=== PATIENT | male | born 1940 | race Caucasian/White ===

== ENCOUNTER 2016-08-15 05:47 | Day surgery (SDC) | payer MEDICARE, OTHER ==
[2016-08-11 10:04] VITALS: BMI 40.7
[2016-08-15] MEDS ORDERED: LACTATED RINGERS 1,000 ML IV SCH (05:54)
[2016-08-15] MEDS ORDERED: SODIUM CHLORIDE 0.9% 1,000 ML IV SCH (06:00)
[2016-08-15 06:29] LABS: Glucose,Whole Blood 115 mg/dL (75-99)
[2016-08-15 06:36] VITALS: TEMP 97
[2016-08-15 06:55] LABS: Basophils % (A) 0 %; CH 30.2; CHCM 33.5; Eosinophils # (A) 0.3 k/uL (0-0.7); Eosinophils % (A) 3 %; HDW 2.69; HGB 12.9 gm/dL (13.0-17.5); Luc # (Auto) 0.15; Luc % (Auto) 1; Lymphocytes # (A) 1.4 k/uL (1.0-4.8); Lymphocytes % (A) 13 %; MCH 29.8 pg (25.0-35.0); MCV 90.4 fL (80.0-100.0); Mean Platelet Volume 7.1; Monocytes # (A) 0.6 k/uL (0-1.0); Monocytes % (A) 6 %; Neutrophils % (A) 77 %; RBC 4.32 m/uL (4.30-5.90); RDW 14.8 % (11.5-15.5); WBC 10.5 k/uL (3.8-10.6); WBC (Perox) 10.52
[2016-08-15] MEDS ORDERED: SODIUM CHLORIDE 0.9% 500 ML IV ONE (07:05)
[2016-08-15 07:06] LABS: Anion Gap 11 mmol/L; Blood Urea Nitrogen 24 mg/dL (9-20); Calcium 9.4 mg/dL (8.4-10.2); Carbon Dioxide 31 mmol/L (22-30); Chloride 98 mmol/L (98-107); Glucose 116 mg/dL (74-99); Non-African American GFR(MDRD) 59 (>60 ml/min/1.73 sqM); Potassium 4.3 mmol/L (3.5-5.1); Sodium 140 mmol/L (137-145)
[2016-08-15] MEDS ORDERED: PROPOFOL 10 MG/ML 20 ML VIAL IV ONE (07:37)
[2016-08-15] MEDS ORDERED: LIDOCAINE 1% INJ 10MG/ML (20 ML MDV) ONE (07:37)
--- NOTE | 2016-08-15 08:26 | CE ---
DATE OF SERVICE: Mr. Melchor is a 76-year-old male patient with a single-chamber ICD for severe cardiomyopathy. He was brought in for ICD testing under anesthesia. The [employer] ICD was interrogated. It is a single-chamber device, RV pacing impedance 475 ohms. RV D-fib impedance 50 ohms, FCD fib impedance 63 ohms. R waves were 8.1 mV, pacing threshold 0.25 v at 0.4 ms. The ICD was reprogrammed and sensitivity at 1.2 mV. Single VF zone testing at testing was performed. A shock and T wave protocol was used to induce ventricular fibrillation. This was adequately and appropriately detected at least sensitivity and successfully internally defibrillated with a 10 joule shock. No postshock noise. Charge time of 1.8 seconds, shocking impedance 47 ohms. Procedure performed under conscious sedation with anesthesia support. The device was then reprogrammed. VT zone 176 beats a minute with appropriate antitachycardia pacing, cardioversion and defibrillation, first cardioversion at 10 joules, VF zone at 14 beats a minute. RESULT: Successful DFT at or below 10 joules. ICD function parameters within normal limits. ICD interrogated and reprogrammed.
[2016-08-15 09:46] VITALS: PULSE 89
[2016-08-15 09:47] VITALS: BP 131/61; RESP 20
--- NOTE | 2016-08-18 16:35 | CDI ---
There is conflicting documentation regarding the sedation used. It appears that Unconscious Sedation was used per the Anesthesia Record, but your Procedure Note states "Procedure performed under conscious sedation with anesthesia support." This is conflicting because these are completely different forms of sedation. If the patient did receive Unconscious Sedation, not Conscious Sedation, then please ammend your procedure note to state the correct form of anesthesia used. If the patient did receive Conscious Sedation, then we will need it correctly documented by Anesthesia. This is necessary for correct coding and billing. If you don't understand what is needed from you, please contact my dealer sales manager, Марина Selby at [phone]. Thank you. HANNAH Ramírez
--- NOTE | 2016-09-01 14:52 | CDI ---
There is conflicting documentation regarding the sedation used. It appears that Unconscious Sedation was used per the Anesthesia Record, but your Procedure Note states "Procedure performed under conscious sedation with anesthesia support." This is conflicting because these are completely different forms of sedation. If the patient did receive Unconscious Sedation, not Conscious Sedation, then please ammend your procedure note to state the correct form of anesthesia used. If the patient did receive Conscious Sedation, then we will need it correctly documented by Anesthesia. This is necessary for correct coding and billing. If you don't understand what is needed from you, please contact my golf course manager, Марина Selby at [phone]. Thank you. HANNAH Ramírez
--- NOTE | 2016-09-15 15:06 | PTCA ---
ADDENDUM: DATE OF SERVICE: 08/05/2016 This patient received procedural sedation using a GA/unconscious sedation technique with utilization of propofol for appropriate sedation. This is in keeping with the technique and agents utilized according to the anesthesia record of the procedure of that date.
== END 2016-08-15 09:20 | disposition home or self-care (01) ==
LOC: CATHEP 05:47
PROVIDERS: ATTEND Internal Medicine Clinical Cardiac Electrophysiology
DX: Z45.02 Encounter for adjustment and management of automatic implantable cardiac defibrillator (principal); I42.9 Cardiomyopathy, unspecified; I25.10 Atherosclerotic heart disease of native coronary artery without angina pectoris; I11.0 Hypertensive heart disease with heart failure; I50.32 Chronic diastolic (congestive) heart failure; I47.2 Ventricular tachycardia; E66.01 Morbid (severe) obesity due to excess calories; Z68.41 Body mass index [BMI] 40.0-44.9, adult; E11.9 Type 2 diabetes mellitus without complications; E78.5 Hyperlipidemia, unspecified; I25.2 Old myocardial infarction; Z79.84 Long term (current) use of oral hypoglycemic drugs; Z79.82 Long term (current) use of aspirin; Z79.4 Long term (current) use of insulin; Z79.899 Other long term (current) drug therapy; Z88.1 Allergy status to other antibiotic agents; Z88.0 Allergy status to penicillin; Z88.8 Allergy status to other drugs, medicaments and biological substances; Z87.891 Personal history of nicotine dependence
CPT/HCPCS: 93642; 80048; 85025; J2001; J2704

== ENCOUNTER 2018-08-13 10:37 | Day surgery (SDC) | payer MEDICARE, OTHER ==
[2018-07-18 16:00] VITALS: BMI 42.4
[~2018-08-13 10:37] MED LIST: LACTATED RINGERS 1,000 ML IV SCH; SODIUM CHLORIDE 0.9% 1,000 ML IV SCH
[2018-08-13 11:17] VITALS: TEMP 97.8
[2018-08-13 11:26] LABS: Glucose,Whole Blood 150 mg/dL (75-99)
[2018-08-13] MEDS ORDERED: MIDAZOLAM 2 MG/2 ML VIAL ONE (12:42)
[2018-08-13] MEDS ORDERED: PROPOFOL 10 MG/ML 20 ML VIAL IV ONE (12:42)
[2018-08-13] MEDS ORDERED: LIDOCAINE 1% INJ 10MG/ML (20 ML MDV) ONE (12:42)
--- NOTE | 2018-08-13 14:45 | PCN ---
PROCEDURE NOTE Mr. Melchor is a 78-year-old male patient with a history of cardiomyopathy and heart failure was at [facility] the dual coil ICD, which is on advisory. He was brought in for an ICD testing under anesthesia. Cinefluoroscopy of the leads was performed. There were no fractures or breaks noted. He has a dual coil ICD lead implanted in the RV apex. ICD was interrogated. The multivoltage of 2.87, last full charge 11.6 seconds, pacing 494 ohms RV coil impedance 53 ohms; impedance 74 ohms. R-waves 8.5 mV. DFT testing was performed under anesthesia, shock and T-wave protocol was used to induce ventricular fibrillation. This was adequately and appropriately detected at least sensitivity and successfully internally defibrillated with a 10-joule shock. The charge time was 2 seconds, shock impedance 51 ohms. No post shock noise. The device was then programmed to appropriate antitachycardia pacing, cardioversion defibrillation with first cardioversion at 10 joules and first defibrillation at 20 joules. RESULT: 1. Cinefluoroscopy of the leads were performed. There were no fractures or breaks noted. 2. He has a dual coiled ICD interrogation implanted in the RV apex. 3. ICD was interrogated, multivoltage and reprogrammed thereafter. MMODL / IJN: [id number] /
[2018-08-13 14:59] VITALS: BP 118/58; PULSE 78; RESP 16
== END 2018-08-13 14:20 | disposition home or self-care (01) ==
LOC: CATHEP 10:37
PROVIDERS: ATTEND Internal Medicine Clinical Cardiac Electrophysiology
DX: I42.9 Cardiomyopathy, unspecified (principal); I25.10 Atherosclerotic heart disease of native coronary artery without angina pectoris; I11.0 Hypertensive heart disease with heart failure; I50.32 Chronic diastolic (congestive) heart failure; Z87.891 Personal history of nicotine dependence; Z45.02 Encounter for adjustment and management of automatic implantable cardiac defibrillator; I47.2 Ventricular tachycardia; E78.5 Hyperlipidemia, unspecified; E11.9 Type 2 diabetes mellitus without complications; Z85.51 Personal history of malignant neoplasm of bladder; E66.9 Obesity, unspecified; Z68.41 Body mass index [BMI] 40.0-44.9, adult; Z79.82 Long term (current) use of aspirin; Z79.4 Long term (current) use of insulin; Z79.899 Other long term (current) drug therapy; Z88.1 Allergy status to other antibiotic agents; Z88.0 Allergy status to penicillin; Z88.8 Allergy status to other drugs, medicaments and biological substances
CPT/HCPCS: 93642; 76000; J2250; J2001; J2704

== ENCOUNTER 2018-11-25 01:05 | Observation (INO) | payer MEDICARE ==
--- NOTE | 2018-11-25 01:24 | ED ---
Neuro HPI - General Stated Complaint: Dizzy Time Seen by Provider: 11/25/18 01:24 Source: RN notes reviewed, old records reviewed - History of Present Illness Is the patient presenting with stroke symptoms?: No -: unknown Initial Comments: This is a 78-year-old male except in transfer from [facility] for evaluation regards to chest pain anterior type symptoms, vertigo dizziness. Patient himself states he's having improved symptoms currently on arrival. Denies any current complaints. Patient does have significant medical history of heart disease. History of same: Yes Place: home Severity: mild Improves With: none Worsens With: none Associated Symptoms: denies other symptoms Treatments Prior to Arrival: none - Related Data Home Medications: Home Medications Medication Instructions Recorded Confirmed Aspirin 81 mg PO DAILY 08/31/14 08/13/18 Atorvastatin [Lipitor] 40 mg PO HS 08/31/14 08/13/18 Carvedilol [Coreg] 12.5 mg PO BID 08/31/14 08/13/18 EPINEPHrine (Auto Inject) [Epipen] 1 injection IM DAILY PRN 08/31/14 07/18/18 Furosemide 20 mg PO QAM 08/31/14 08/13/18 Insulin Glargine,Hum.rec.anlog 28 unit SQ BID 08/31/14 08/13/18 [Lantus Solostar] Insulin Lispro [humaLOG Kwikpen] 18 unit SQ AC-BID 08/31/14 08/13/18 Potassium Chloride [Klor-Con 10] 10 meq PO BID 08/31/14 08/13/18 metFORMIN HCL 1,000 mg PO BID 08/31/14 08/13/18 Cholecalciferol [Vitamin D3 (25 5,000 unit PO DAILY 08/11/16 08/13/18 Mcg = 1000 Iu)] Cyanocobalamin (Vitamin B-12) 1,000 mcg PO DAILY 08/11/16 08/13/18 [Vitamin B-12] Insulin Lispro [humaLOG Kwikpen] 34 unit SQ AC-SUPPER 08/11/16 07/18/18 Losartan [Cozaar] 25 mg PO HS 07/18/18 08/13/18 Allergies/Adverse Reactions: Allergies Allergy/AdvReac Type Severity Reaction Status Date / Time atenolol [From Tenormin] Allergy Swelling. Verified 11/25/18 01:36 REDNESS OF SKIN benazepril HCl Allergy Swelling. Verified 11/25/18 01:36 [From Lotensin] REDNESS OF SKIN Penicillins Allergy Swelling. Verified 11/25/18 01:36 REDNESS SKIN tetracycline Allergy Swelling.REDNESS Verified 11/25/18 01:36 OF SKIN Review of Systems ROS Statement: Those systems with pertinent positive or pertinent negative responses have been documented in the HPI. ROS Other: All systems not noted in ROS Statement are negative. General Exam General appearance: alert, in no apparent distress Head exam: Present: atraumatic, normocephalic, normal inspection Eye exam: Present: normal appearance, PERRL, EOMI. Absent: scleral icterus, conjunctival injection, periorbital swelling ENT exam: Present: normal exam, mucous membranes moist Neck exam: Present: normal inspection. Absent: tenderness, meningismus, lymphadenopathy Respiratory exam: Present: normal lung sounds bilaterally. Absent: respiratory distress, wheezes, rales, rhonchi, stridor Cardiovascular Exam: Present: regular rate, normal rhythm, normal heart sounds. Absent: systolic murmur, diastolic murmur, rubs, gallop, clicks GI/Abdominal exam: Present: soft, normal bowel sounds. Absent: distended, tenderness, guarding, rebound, rigid Extremities exam: Present: normal inspection, full ROM, normal capillary refill. Absent: tenderness, pedal edema, joint swelling, calf tenderness Back exam: Present: normal inspection Neurological exam: Present: alert, oriented X3, CN II-XII intact Psychiatric exam: Present: normal affect, normal mood Skin exam: Present: warm, dry, intact, normal color. Absent: rash Stroke MDM - NIH Stroke Scale 1a. Level of Consciousness: (0) alert 1b. LOC Questions: (0) answers correctly 1c. LOC Commands: (0) performs tasks correctly 2. Best Gaze: (0) normal 3. Visual: (0) no visual loss 4. Facial Palsy: (0) normal symmetrical movement 5a. Motor Arm Left: (0) no drift 5b. Motor Arm Right: (0) no drift 6a. Motor Leg Left: (0) no drift 6b. Motor Leg Right: (0) no drift 7. Limb Ataxia: (0) absent 8. Sensory: (0) normal 9. Best Language: (0) no aphasia 10. Dysarthria: (0) normal 11. Extinction/Inattention: (0) no abnormality - Medical Decision Making 78 male the ER for evaluation except in transfer, patient will be admitted for both neurology and cardiology evaluation - EKG Data -: EKG Interpreted by Me (EKG shows junctional rhythm 75 QRS 72, QTc 437) Past Medical History Past Medical History: Cancer, Diabetes Mellitus, Eye Disorder, Myocardial Infarction ([place]) Additional Past Medical History / Comment(s): recent tx of infected cracked tooth.SEE DR SANCHEZ'S H&P, RT EYE ANEURYSM, HX OF BLADDER CA-CHEMO TX Last Myocardial Infarction Date:: 2005 History of Any Multi-Drug Resistant Organisms: None Reported Past Surgical History: AICD, Appendectomy, Heart Catheterization, Joint Replacement, Orthopedic Surgery Additional Past Surgical History / Comment(s): LEON KNEE ARTHROSCOPIES, LEON KNEE REPLACEMENTS, BLADDER TUMOR REMOVED, DEFIB TESTING, EP STUDY Past Anesthesia/Blood Transfusion Reactions: No Reported Reaction Additional Past Anesthesia/Blood Transfusion Reaction / Comment(s): no hx blood transfusion Type of Cardiac Device: AICD Device Placement Date:: 2011 [employer] Smoking Status: Former smoker - Past Family History Mother Family Medical History: No Reported History Father Family Medical History: Congestive Heart Failure (CHF) Course Vital Signs 11/25/18 11/25/18 01:30 02:57 Temperature 98.6 F Pulse Rate 75 75 Respiratory 14 16 Rate Blood Pressure 117/59 117/65 O2 Sat by Pulse 96 94 L Oximetry - Reevaluation(s) Reevaluation #1: 11/25/18 03:03 Record transfer paperwork are reviewed and did speak with transferring physician Disposition Clinical Impression: Transient cerebral ischemia, Chest pain, Vertigo Disposition: ADMITTED IP TO THIS HOSP Condition: Fair Is patient prescribed a controlled substance at d/c from ED?: No Referrals: Rob Cruz MD [Primary Care Provider] - 1-2 days
[2018-11-25] MEDS ORDERED: NITROGLYCERIN SL TABS 0.4 MG TAB SUBLINGUAL PRN (03:00)
[2018-11-25] MEDS ORDERED: SODIUM CHLORIDE 0.9% 1,000 ML IV SCH (03:00)
[2018-11-25] MEDS: SODIUM CHLORIDE 0.9% 1,000 ML IV SCH ×2 (03:10→14:33)
[2018-11-25 03:49] LABS: Glucose,Whole Blood 98 mg/dL (75-99)
[2018-11-25 03:59] VITALS: BMI 40.8
[2018-11-25 04:18] VITALS: RESP 18
[2018-11-25 06:39] LABS: Glucose,Whole Blood 113 mg/dL (75-99)
[2018-11-25 07:56] LABS: HCT 40.8 % (39.0-53.0); HGB 12.9 gm/dL (13.0-17.5); MCH 30.5 pg (25.0-35.0); MCHC 31.6 g/dL (31.0-37.0); MCV 96.5 fL (80.0-100.0); Mean Platelet Volume 7.6; Platelet Count 123 k/uL (150-450); RBC 4.23 m/uL (4.30-5.90); RDW 15.1 % (11.5-15.5); WBC 7.3 k/uL (3.8-10.6)
[2018-11-25 08:14] LABS: Calcium 8.8 mg/dL (8.4-10.2)
--- NOTE | 2018-11-25 09:02 | CONS ---
CONSULTATION CHIEF COMPLAINT: Smiley Kraus is a 78-year-old gentleman with history of coronary artery disease, status post angioplasty, ventricular tachycardia, status post AICD, hypertension, diabetes, dyslipidemia, and chronic leg edema secondary to venous insufficiency, who presents to hospital with dizziness. He states that he has had 2 episodes of dizziness, both as he was trying to get up from a sitting position. It is mild to moderate intensity at rest, precipitated by getting up and relieved with sitting, unassociated with diaphoresis. There was no shortness of breath. No chest pain and no vertigo. After the second episode, he called his friend and went to the emergency room at [facility] where he underwent extensive workup, had an EKG that showed sinus rhythm. Troponin that was negative. Hemoglobin that was normal. Creatinine that was slightly elevated at 1.2. Had a CT scan of the brain. I do not have the report, but the patient was told that he had an old stroke and subsequently he was transferred to [facility] for further care. Along the way, his dizziness has resolved by the time he came to the ER at our hospital. At the time of my evaluation this morning, patient states that he still has mild dizziness, but is otherwise feeling well. He does not have any other symptoms. There are no focal neurological deficits. After admission, he has had 3 sets of troponins that have been negative. Rest of his lab work is benign and unremarkable. PAST MEDICAL HISTORY: Significant for ventricular tachycardia, status post AICD, hypertension, diabetes, dyslipidemia, coronary artery disease, status post angioplasty. MEDICATIONS: Include metformin, K-Dur, Cozaar, insulin, Lasix, EpiPen, Coreg, Lipitor and aspirin. ALLERGIC: To TENORMIN, LOTENSIN, PENICILLIN, and TETRACYCLINE. FAMILY HISTORY: Negative for premature coronary artery disease. SOCIAL HISTORY: Negative for current smoking, EtOH abuse or drug abuse. REVIEW OF SYSTEMS: HEENT: Unremarkable. CARDIAC: As described above. RESPIRATORY: Negative. GI: Negative. GENITOURINARY: Negative. ALLERGY/IMMUNOLOGY: Negative. SKIN: Negative. MUSCULOSKELETAL: Negative. ENDOCRINE: Negative. DERM: Negative. CONSTITUTIONAL: Negative. ONCOLOGICAL: Negative. SLAUGHTERER RELIGIOUS RITUAL: Significant for dizziness. PHYSICAL EXAM: Patient appears comfortable at rest. Vital signs are stable. There is no jugular venous distention. Chest exam reveals good air entry bilaterally. Heart exam reveals first and second heart sounds. No gallop. No murmur. Abdomen is soft. Exam of extremities reveals bilateral pitting edema, more on the right than on the left. ASSESSMENT: 1. Dizziness. 2. Coronary artery disease, status post angioplasty. 3. Ventricular tachycardia, status post AICD. 4. Hypertension. 5. Diabetes. PLAN: I am going to feed the patient this morning. Review his outpatient records from my office, obtain orthostatics. If this workup is unremarkable. He does not require any further evaluation at this time unless Neurology wants further workup. MMODL / IJN: [id number] /
--- NOTE | 2018-11-25 10:13 | P.CNNES ---
History of Present Illness Consult date: 11/25/18 Requesting physician: Leonard Duff Reason for Consult: TIA Chief complaint: Dizziness History of Present Illness: This is a 78 RH male h/o CAD s/p angioplasty, VT s/p AICD, HTN, DM, HL and chronic leg edema d/t venous insufficiency who presented to the hospital because of dizziness. Patient c/o 2 episodes of dizziness on postural changes. When he sat back down, his dizziness improved. Cardiology saw patient and documented that it was not associated with CP even though his ER report stated he had CP. He initially presented to an OSH and had a cardiac work-up. He did have an outside CT Head wo cont that reportedly showed an old stroke. His dizziness has improved. Otherwise, he denies other accompanying focal neuro c/o. No recent head/neck trauma or heavy lifting. Review of Systems 14-point ROS performed and as per HPI. Neurologically, patient denies decreased level or loss of consciousness, headache, seizure, changes in vision, diplopia, amaurosis, changes in hearing, facial droop, ptosis, hearing loss, tinnitus, dysarthria, dysphagia, aphasia, other focal numbness/weakness not mentioned above, tremors, bowel/bladder incontinence or ataxia. Past Medical History Past Medical History: Cancer, Diabetes Mellitus, Eye Disorder, Myocardial Infarction ([place]) Additional Past Medical History / Comment(s): recent tx of infected cracked tooth.SEE DR SANCHEZ'S H&P, RT EYE ANEURYSM, HX OF BLADDER CA-CHEMO TX 2015 Last Myocardial Infarction Date:: 2005 History of Any Multi-Drug Resistant Organisms: None Reported Past Surgical History: AICD, Appendectomy, Heart Catheterization, Joint Replacement, Orthopedic Surgery Additional Past Surgical History / Comment(s): ELON KNEE ARTHROSCOPIES, LEON KNEE REPLACEMENTS, BLADDER TUMOR REMOVED, DEFIB TESTING, EP STUDY Past Anesthesia/Blood Transfusion Reactions: No Reported Reaction Additional Past Anesthesia/Blood Transfusion Reaction / Comment(s): no hx blood transfusion Type of Cardiac Device: AICD Device Placement Date:: 2011 [employer] Past Psychological History: No Psychological Hx Reported Smoking Status: Former smoker Past Alcohol Use History: None Reported Additional Past Alcohol Use History / Comment(s): STARTED SMOKING 1967, QUIT 1986 1PPD Past Drug Use History: None Reported - Past Family History Mother Family Medical History: No Reported History Father Family Medical History: Congestive Heart Failure (CHF) Medications and Allergies Home Medications Medication Instructions Recorded Confirmed Type Aspirin 81 mg PO DAILY 08/31/14 11/25/18 History Atorvastatin [Lipitor] 40 mg PO HS 08/31/14 11/25/18 History Carvedilol [Coreg] 12.5 mg PO BID 08/31/14 11/25/18 History EPINEPHrine (Auto Inject) [Epipen] 1 injection IM DAILY PRN 08/31/14 11/25/18 History Furosemide 20 mg PO QAM 08/31/14 11/25/18 History Insulin Glargine,Hum.rec.anlog 28 unit SQ BID@1200,1700 08/31/14 11/25/18 History [Lantus Solostar] Insulin Lispro [humaLOG Kwikpen] 14 unit SQ AC-BID@0800,1200 08/31/14 11/25/18 History Potassium Chloride [Klor-Con 10] 10 meq PO BID 08/31/14 11/25/18 History metFORMIN HCL 1,000 mg PO BID 08/31/14 11/25/18 History Cholecalciferol [Vitamin D3 (25 5,000 unit PO DAILY 08/11/16 11/25/18 History Mcg = 1000 Iu)] Cyanocobalamin (Vitamin B-12) 1,000 mcg PO DAILY 08/11/16 11/25/18 History [Vitamin B-12] Insulin Lispro [humaLOG Kwikpen] 34 unit SQ AC-SUPPER 08/11/16 11/25/18 History Losartan [Cozaar] 25 mg PO HS 07/18/18 11/25/18 History Allergies Allergy/AdvReac Type Severity Reaction Status Date / Time atenolol [From Tenormin] Allergy Swelling. Verified 11/25/18 07:47 REDNESS OF SKIN benazepril HCl Allergy Swelling. Verified 11/25/18 07:47 [From Lotensin] REDNESS OF SKIN Penicillins Allergy Swelling. Verified 11/25/18 07:47 REDNESS SKIN tetracycline Allergy Swelling.REDNESS Verified 11/25/18 07:47 OF SKIN Physical Examination - Vital Signs Vital Signs: Vital Signs Temp Pulse Pulse Resp BP BP Pulse Ox 11/25/18 04:00 76 18 156/88 96 11/25/18 03:22 98 F 86 16 112/58 93 L 11/25/18 02:57 75 16 117/65 94 L 11/25/18 01:30 98.6 F 75 14 117/59 96 Intake and Output 11/24/18 11/25/18 11/25/18 22:59 06:59 14:59 Intake Total 100 0 Output Total 550 Balance 100 -550 Intake: Intake, IV Titration 100 Amount Sodium Chloride 0.9% 1, 100 000 ml @ 100 mls/hr IV . Q10H ARIANNE Rx#:[id number] Oral 0 Output: Urine 550 Other: Weight 136.8 kg 137 kg Gen NAD Pleasant and cooperative HEENT NCAT Sclera without icterus O/P clear Neck Supple No carotid bruit Cor RRR no m/r/g Lungs CTAB Abd Soft NTND +BS Ext Warm to touch 3+ distal BLE edema Neuro MS A+Ox4 Normal fluency Able to follow all commands CN PERRL VFF no APD EOMI no nystagmus or HIEU No facial asymmetry Masseter's symmetric Hearing intact to normal voice bilaterally Speech not dysarthric Equal elevation of palate Tongue midline Sym shrug and SCM bilaterally Motor Normal bulk/tone No pronator or tremors Strength 5/5 sym throughout Sens Intact to LT x4 No neglect or extinction Coord No dysmetria on FTN bilaterally DTRs 2+/4 sym throughout Toes downgoing bilaterally No clonus at achilles Gait Deferred NIHSS 0 Results - Laboratory Findings CBC and BMP: 11/25/18 07:36 11/25/18 07:36 Abnormal Lab Findings: Abnormal Labs 11/25/18 11/25/18 11/25/18 06:38 07:36 07:36 RBC 4.23 L Hgb 12.9 L Plt Count 123 L Creatinine 1.26 H Glucose 120 H POC Glucose (mg/dL) 113 H - Diagnostic Findings Additional findings: CT Head wo cont 11/24/18. Lacunar ischemic infarct in the right caudate, chronic. Small vessel disease. No ICH. Nil acute. I have reviewed neuroimages myself. Assessment and Plan Assessment: Postural dizziness, improving. Does not sound central based on presentation. Right caudate lacunar infarct, chronic. Plan: -ASA 325mg/day -Statin -Cannot obtain MRI due to AICD -Cardiology has seen the patient and other than orthostatics does not recommend other work-up -Carotid duplex given he did have a small right anterior circulation stroke in the past, even though small vessel disease would be the more likely explanation given his vascular risk factors -PT/OT/SP per protocol -DVT prophylaxis -d/w patient in detail. All questions answered. Thank you for this consultation. Please call with ?. Time with Patient: Greater than 30 (Time spent in direct patient care, greater than 50% of which was spent in egcm-in-ebsv counseling and coordination of care: 70 minutes)
[2018-11-25 11:16] VITALS: TEMP 97
[2018-11-25 12:17] LABS: Glucose,Whole Blood 227 mg/dL (75-99)
--- NOTE | 2018-11-25 14:15 | US ---
EXAMINATION TYPE: US carotid duplex BILAT DATE OF EXAM: 11/25/2018 COMPARISON: NONE CLINICAL HISTORY: rule out stroke. dizziness per patient. EXAM MEASUREMENTS: RIGHT: Peak Systolic Velocity (PSV) cm/sec ----- Right CCA: 54.9 ----- Right ICA: 91.1 ----- Right ECA: 88.9 ICA/CCA ratio: 1.7 RIGHT: End Diastole cm/sec ----- Right CCA: 9.5 ----- Right ICA: 23.0 ----- Right ECA: 5.4 LEFT: Peak Systolic Velocity (PSV) cm/sec ----- Left CCA: 74.6 ----- Left ICA: 82.3 ----- Left ECA: 72.4 ICA/CCA ratio: 1.1 LEFT: End Diastole cm/sec ----- Left CCA: 13.1 ----- Left ICA: 19.7 ----- Left ECA: 5.4 VERTEBRALS (direction of flow): Right Vertebral: Antegrade Left Vertebral: Antegrade Rhythm: Normal No significant stenosis seen. Elevated ICA as compared to CCA on the right side. IMPRESSION: 1. No diagnostic evidence of significant hemodynamic stenosis as visualized. Criteria for Assigning % of Stenosis / Diameter reduction (Estimation based on the indirect measurements of the internal carotid artery velocities (ICA PSV). 1. Normal (no stenosis)=ICA PSV < 125 cm/s: ratio < 2.0: ICA EDV<40 cm/s. 2. Less than 50% stenosis=ICA PSV < 125 cm/s: ratio < 2.0: ICA EDV<40 cm/s. 3. 50 to 69% stenosis=ICA PSV of 125 to 230 cm/s: ration 2.0 ? 4.0: ICA EDV 40-100 cm/s. 4. Greater than 70% stenosis to near occlusion= ICA PSV > 230 cm/s: ratio > 4.0: ICA EDV > 100 cm/s. 5. Near occlusion= ICA PSV velocities may be low or undetectable: variable ratio and ICA EDV. 6. Total occlusion=unable to detect flow.
[2018-11-25] MEDS: INSULIN ASPART (NovoLOG) 100 UNIT/ML VIAL SQ SCH ×2 (14:33→17:57)
[2018-11-25 15:31] LABS: Hemoglobin A1C 6.1 % (4.0-6.0)
--- NOTE | 2018-11-25 15:47 | P.PN ---
Progress Note - Text Progress Note Date: 11/25/18 Carotid duplex reviewed. No significant anterior circulation stenosis. Antegrade flow seen in both vertebral arteries. No further neurodiagnostic testing suggested. Continue aspirin and statin. Stable for discharge from acute neuro standpoint. No further inpatient neuro recs at this time. Will revisit prn. Please call with new ?.
[2018-11-25] MEDS ORDERED: EPINEPHrine 1 MG/ML 1 ML AMP IM PRN (16:12)
[2018-11-25 17:19] LABS: Glucose,Whole Blood 144 mg/dL (75-99)
[2018-11-25 17:23] VITALS: BP 115/67; PULSE 68
[2018-11-25] MEDS ORDERED: CARVEDILOL 12.5 MG TAB PO SCH (17:30)
[2018-11-25] MEDS ORDERED: INSULIN ASPART (NovoLOG) 100 UNIT/ML VIAL SQ SCH (17:30)
--- NOTE | 2018-11-25 18:48 | HP ---
HISTORY AND PHYSICAL CHIEF COMPLAINT: Dizziness. HISTORY OF PRESENT ILLNESS: This gentleman noticed that he was feeling dizzy and went to [facility]. There they apparently thought that he may be having a TIA and transferred him here. He does have a history of heart disease, but he had no chest pain with this episode. He also was not diaphoretic and he had no syncope or orthopnea. He does have coronary artery disease and has had a stent placed in the past. He also has an AICD and sees a supervisor microwave locally. He is also diabetic. He has chronic lymphedema of the lower extremities with the right being worse than the left. REVIEW OF SYSTEMS: He has had no focal neurologic deficits, change in vision or hearing, tinnitus, cough, shortness of breath, hemoptysis, pleurisy, orthopnea, PND, palpitations, firing of his ICD, etc. He has had no abdominal pain, nausea, vomiting, hematemesis, melena, hematochezia, colitis, diverticulosis, diverticulitis, hemorrhoids, jaundice, hepatitis, cirrhosis, hematuria, renal failure, dysuria, nocturia, incontinence, etc. He is diabetic. He does not smoke and has not for 20 years or so. Surgically he has had a procedure on both knees and an appendectomy. Medications can be found in the MAR. PHYSICAL EXAMINATION: Blood pressure is 143/84 with a pulse of 73, respirations of 15. He is afebrile. In general he appeared to be slightly overweight and in no acute distress. Skin color was normal. Skin was warm and dry. Lymph nodes were not enlarged. Head, ears, eyes, nose, mouth and throat were normal. Neck veins were not distended. Thyroid was not enlarged. Chest was clear. Cardiac exam was normal, with no murmurs or extra sounds. Abdomen was soft and nontender. Extremities were normal except for the brawny edema of the legs. Neurologically he was intact. IMPRESSION: 1. Dizziness. 2. Doubt transient ischemic attack. 3. History of coronary artery disease. 4. History of arrhythmia, status post automated implantable cardioverter defibrillator. 5. Diabetes mellitus. PLAN: 1. Bed rest. 2. IV fluids. 3. Continuous cardiac monitoring. 4. Carotid duplex imaging. MMODL / IJN: [id number] /
[2018-11-25] MEDS ORDERED: ATORVASTATIN 80 MG TAB PO SCH (21:00)
[2018-11-25] MEDS ORDERED: metFORMIN 500 MG TAB PO SCH (21:00)
[2018-11-25] MEDS ORDERED: LOSARTAN 25 MG TAB PO SCH (21:00)
[2018-11-25] MEDS ORDERED: ATORVASTATIN 40 MG TAB PO SCH (21:00)
[2018-11-25] MEDS ORDERED: INSULIN DETEMIR (LEVEMIR) 100 UNIT/ML SYR SQ SCH (21:00)
[2018-11-25] MEDS ORDERED: POTASSIUM CHLORIDE ER 10 MEQ TAB.ER.PRT PO SCH (21:00)
--- NOTE | 2018-11-25 22:00 | DS ---
DISCHARGE SUMMARY CHIEF COMPLAINT: Dizziness. HISTORY OF PRESENT ILLNESS AND PHYSICAL EXAMINATION: Details of this man's history and physical can be found in the initial workup. LABORATORY STUDIES: While he was in the hospital he had laboratory studies, details of which can be found in the laboratory section of his chart. COURSE IN THE HOSPITAL: After admission he was placed on bedrest, started on intravenous fluids and placed on telemetry. He was seen by Cardiology. Studies were done, including carotid duplex imaging, which was normal. It was felt that this did not represent a TIA and merely vertigo and that he could be discharged. He will go home on his usual diet, activity and medications and will follow up either with me or his own family physician. FINAL DIAGNOSES: 1. Vertigo. 2. History of cardiac arrhythmia. 3. Coronary artery disease. 4. Diabetes mellitus. OPERATIONS: None. CONSULTATIONS: 1. Cardiology. 2. Neurology. He is improved. MAURICIO / TED: [id number] /
[2018-11-26] MEDS ORDERED: INSULIN ASPART (NovoLOG) 100 UNIT/ML VIAL SQ SCH (08:00)
[2018-11-26] MEDS ORDERED: ASPIRIN 325 MG TAB PO SCH (09:00)
[2018-11-26] MEDS ORDERED: FUROSEMIDE 20 MG TAB PO SCH (09:00)
[2018-11-26] MEDS ORDERED: CYANOCOBALAMIN 500 MCG TAB PO SCH (09:00)
[2018-11-26] MEDS ORDERED: CHOLECALCIFEROL 1,000 UNIT TAB PO SCH (09:00)
[2018-11-26] MEDS ORDERED: ASPIRIN 81 MG PO SCH (09:00)
== END 2018-11-25 18:51 | disposition home or self-care (01) ==
LOC: EC 01:05 → 3SCARD 03:09
PROVIDERS: ADMIT Family Medicine; ATTEND Family Medicine
DX: R42 Dizziness and giddiness (principal); E11.9 Type 2 diabetes mellitus without complications; I25.10 Atherosclerotic heart disease of native coronary artery without angina pectoris; Z95.810 Presence of automatic (implantable) cardiac defibrillator; I89.0 Lymphedema, not elsewhere classified; E78.5 Hyperlipidemia, unspecified; I10 Essential (primary) hypertension; I47.2 Ventricular tachycardia; I25.2 Old myocardial infarction; I87.2 Venous insufficiency (chronic) (peripheral); Z79.4 Long term (current) use of insulin; Z79.82 Long term (current) use of aspirin; Z79.899 Other long term (current) drug therapy; Z85.51 Personal history of malignant neoplasm of bladder; Z86.73 Personal history of transient ischemic attack (TIA), and cerebral infarction without residual deficits; Z87.891 Personal history of nicotine dependence; Z88.1 Allergy status to other antibiotic agents; Z88.0 Allergy status to penicillin; Z88.8 Allergy status to other drugs, medicaments and biological substances; Z96.653 Presence of artificial knee joint, bilateral; Z98.890 Other specified postprocedural states; Z90.49 Acquired absence of other specified parts of digestive tract; Z95.5 Presence of coronary angioplasty implant and graft
CPT/HCPCS: 99285; 93005; 97162; 97165; 92523; 80048; 84484; 85027; 83036; 93880; G0378

== ENCOUNTER 2020-09-21 12:24 | Inpatient (IN) | payer MEDICARE ==
--- NOTE | 2020-09-21 12:58 | ED ---
General Adult HPI - General Chief complaint: Urogenital Stated complaint: Kidney Stones Time Seen by Provider: 09/21/20 12:25 Source: patient, family, RN notes reviewed, old records reviewed Mode of arrival: wheelchair Limitations: no limitations - History of Present Illness Initial comments: This a 80-year-old male who presents emergency Department with a past medical history significant for kidney stones and bladder cancer. Patient states he was treated for the bladder cancer 3 years ago. Patient states a few days ago started having left-sided flank pain that was reminiscent of his kidney stone pain and then the pain went away however yesterday he started urinating blood and having some pain in his penis. Patient denies any flank pain at this time. Patient denies any abdominal pain. Patient denies any fever chills per patient denies any back pain. Patient denies any other symptoms at this time. Patient denies any blood thinners. - Related Data Home Medications Medication Instructions Recorded Confirmed Aspirin 81 mg PO DAILY 08/31/14 09/21/20 Atorvastatin [Lipitor] 40 mg PO DAILY 08/31/14 09/21/20 Carvedilol [Coreg] 12.5 mg PO BID 08/31/14 09/21/20 Furosemide 20 mg PO DAILY 08/31/14 09/21/20 Insulin Glargine,Hum.rec.anlog 14 unit SQ AC-BID@1200,1600 08/31/14 09/21/20 [Lantus Solostar] Insulin Lispro [humaLOG Kwikpen] 10 unit SQ AC-BRKFST 08/31/14 09/21/20 Potassium Chloride [Klor-Con 10] 10 meq PO BID 08/31/14 09/21/20 metFORMIN HCL 1,000 mg PO BID 08/31/14 09/21/20 Cholecalciferol [Vitamin D3 (25 125 mcg PO DAILY 08/11/16 09/21/20 Mcg = 1000 Iu)] Cyanocobalamin (Vitamin B-12) 1,000 mcg PO DAILY 08/11/16 09/21/20 [Vitamin B-12] Insulin Lispro [humaLOG Kwikpen] 8 unit SQ AC-LUNCH 08/11/16 09/21/20 Losartan [Cozaar] 25 mg PO DAILY 07/18/18 09/21/20 Insulin Lispro [humaLOG Kwikpen] 5 unit SQ AC-SUPPER 09/21/20 09/21/20 Allergies Allergy/AdvReac Type Severity Reaction Status Date / Time atenolol [From Tenormin] Allergy Swelling. Verified 09/21/20 14:34 REDNESS OF SKIN benazepril HCl Allergy Swelling. Verified 09/21/20 14:34 [From Lotensin] REDNESS OF SKIN Penicillins Allergy Swelling. Verified 09/21/20 14:34 REDNESS SKIN tetracycline Allergy Swelling.REDNESS Verified 09/21/20 14:34 OF SKIN Review of Systems ROS Statement: Those systems with pertinent positive or pertinent negative responses have been documented in the HPI. ROS Other: All systems not noted in ROS Statement are negative. Past Medical History Past Medical History: Cancer, Diabetes Mellitus, Eye Disorder, Myocardial Infarction ([place]) Additional Past Medical History / Comment(s): recent tx of infected cracked tooth.SEE DR SANCHEZ'S H&P, RT EYE ANEURYSM, HX OF BLADDER CA-CHEMO TX 2015 Last Myocardial Infarction Date:: 2005 History of Any Multi-Drug Resistant Organisms: None Reported Past Surgical History: AICD, Appendectomy, Heart Catheterization, Joint Replacement, Orthopedic Surgery Additional Past Surgical History / Comment(s): LEON KNEE ARTHROSCOPIES, LEON KNEE REPLACEMENTS, BLADDER TUMOR REMOVED, DEFIB TESTING, EP STUDY Past Anesthesia/Blood Transfusion Reactions: No Reported Reaction Additional Past Anesthesia/Blood Transfusion Reaction / Comment(s): no hx blood transfusion Type of Cardiac Device: AICD Device Placement Date:: 2011 [employer] Past Psychological History: No Psychological Hx Reported Smoking Status: Former smoker Past Alcohol Use History: None Reported Past Drug Use History: None Reported - Past Family History Mother Family Medical History: No Reported History Father Family Medical History: Congestive Heart Failure (CHF) General Exam - General Exam Comments Initial Comments: GENERAL: Patient is well-developed and well-nourished. Patient is nontoxic and well- hydrated and is in mild distress. ENT: Neck is soft and supple. No significant lymphadenopathy is noted. Oropharynx is clear. Moist mucous membranes. Neck has full range of motion without conchita citing any pain. EYES: The sclera were anicteric and conjunctiva were pink and moist. Extraocular movements were intact and pupils were equal round and reactive to light. Eyelids were unremarkable. PULMONARY: Unlabored respirations. Good breath sounds bilaterally. No audible rales rhonchi or wheezing was noted. CARDIOVASCULAR: There is a regular rate and rhythm without any murmurs gallops or rubs. ABDOMEN: Soft and nontender with normal bowel sounds. GENITALIA: Unable to give visualized glans penis because it was buried in the foreskin area SKIN: Skin is clear with no lesions or rashes and otherwise unremarkable. NEUROLOGIC: Patient is alert and oriented x3. Cranial nerves II through XII are grossly intact. Motor and sensory are also intact. Normal speech, volume and content. Symmetrical smile. MUSCULOSKELETAL: Normal extremities with adequate strength and full range of motion. LYMPHATICS: No significant lymphadenopathy is noted PSYCHIATRIC: Normal psychiatric evaluation. Limitations: no limitations Course Vital Signs 09/21/20 12:25 Temperature 98.6 F Pulse Rate 78 Respiratory 18 Rate Blood Pressure 120/67 O2 Sat by Pulse 96 Oximetry Medical Decision Making - Medical Decision Making Patient's CAT scan showed bilateral hydronephrosis with a possible mass versus blood clot in the bladder. I spoke with Dr. Raman and he wanted the patient admitted. I spoke with some physicians agreed to admit the patient minute the patient and I consult to urology. - Lab Data Result diagrams: 09/21/20 13:04 09/21/20 13:04 Lab Results 09/21/20 09/21/20 09/21/20 Range/Units 13:04 13:04 13:04 WBC 9.9 (3.8-10.6) k/uL RBC 3.95 L (4.30-5.90) m/uL Hgb 9.9 L (13.0-17.5) gm/dL Hct 31.0 L (39.0-53.0) % MCV 78.6 L (80.0-100.0) fL MCH 25.2 (25.0-35.0) pg MCHC 32.0 (31.0-37.0) g/dL RDW 17.2 H (11.5-15.5) % Plt Count 180 (150-450) k/uL MPV 7.6 Neutrophils % 78 % Lymphocytes % 13 % Monocytes % 6 % Eosinophils % 2 % Basophils % 0 % Neutrophils # 7.8 H (1.3-7.7) k/uL Lymphocytes # 1.2 (1.0-4.8) k/uL Monocytes # 0.6 (0-1.0) k/uL Eosinophils # 0.2 (0-0.7) k/uL Basophils # 0.0 (0-0.2) k/uL Hypochromasia Slight Anisocytosis Slight Microcytosis Slight PT 10.3 (9.0-12.0) sec INR 1.0 (<1.2) APTT 21.3 L (22.0-30.0) sec Sodium (137-145) mmol/L Potassium (3.5-5.1) mmol/L Chloride (98-107) mmol/L Carbon Dioxide (22-30) mmol/L Anion Gap mmol/L BUN (9-20) mg/dL Creatinine (0.66-1.25) mg/dL Est GFR (CKD-EPI)AfAm (>60 ml/min/1.73 sqM) Est GFR (CKD-EPI)NonAf (>60 ml/min/1.73 sqM) Glucose (74-99) mg/dL POC Glucose (mg/dL) (75-99) mg/dL POC Glu Tentmaker ID Calcium (8.4-10.2) mg/dL Total Bilirubin (0.2-1.3) mg/dL AST (17-59) U/L ALT (4-49) U/L Alkaline Phosphatase (38-126) U/L Total Protein (6.3-8.2) g/dL Albumin (3.5-5.0) g/dL Urine Color Dark Red Urine Appearance Bloody (Clear) Urine RBC >182 H (0-5) /hpf Urine WBC >182 H (0-5) /hpf Ur Squamous Epith Cells 26 H (0-4) /hpf 09/21/20 09/21/20 Range/Units 13:04 14:29 WBC (3.8-10.6) k/uL RBC (4.30-5.90) m/uL Hgb (13.0-17.5) gm/dL Hct (39.0-53.0) % MCV (80.0-100.0) fL MCH (25.0-35.0) pg MCHC (31.0-37.0) g/dL RDW (11.5-15.5) % Plt Count (150-450) k/uL MPV Neutrophils % % Lymphocytes % % Monocytes % % Eosinophils % % Basophils % % Neutrophils # (1.3-7.7) k/uL Lymphocytes # (1.0-4.8) k/uL Monocytes # (0-1.0) k/uL Eosinophils # (0-0.7) k/uL Basophils # (0-0.2) k/uL Hypochromasia Anisocytosis Microcytosis PT (9.0-12.0) sec INR (<1.2) APTT (22.0-30.0) sec Sodium 135 L (137-145) mmol/L Potassium 4.6 (3.5-5.1) mmol/L Chloride 97 L (98-107) mmol/L Carbon Dioxide 29 (22-30) mmol/L Anion Gap 9 mmol/L BUN 26 H (9-20) mg/dL Creatinine 1.40 H (0.66-1.25) mg/dL Est GFR (CKD-EPI)AfAm 55 (>60 ml/min/1.73 sqM) Est GFR (CKD-EPI)NonAf 48 (>60 ml/min/1.73 sqM) Glucose 112 H (74-99) mg/dL POC Glucose (mg/dL) 115 H (75-99) mg/dL POC Glu Tentmaker ID Hali Low Calcium 9.7 (8.4-10.2) mg/dL Total Bilirubin 0.7 (0.2-1.3) mg/dL AST 23 (17-59) U/L ALT 15 (4-49) U/L Alkaline Phosphatase 91 (38-126) U/L Total Protein 6.8 (6.3-8.2) g/dL Albumin 4.1 (3.5-5.0) g/dL Urine Color Urine Appearance (Clear) Urine RBC (0-5) /hpf Urine WBC (0-5) /hpf Ur Squamous Epith Cells (0-4) /hpf Disposition Clinical Impression: Hematuria, Anemia Disposition: ADMITTED IP TO THIS [facility] Additional Instructions: Patient should return to the emergency department if there is any difficulty breathing shortness of breath. Is patient prescribed a controlled substance at d/c from ED?: No Referrals: Rob Cruz MD [Primary Care Provider] - 1-2 days Time of Disposition: 15:30
[2020-09-21 13:16] LABS: Anisocytosis Slight; Basophils % (A) 0 %; Eosinophils # (A) 0.2 k/uL (0-0.7); Eosinophils % (A) 2 %; HGB 9.9 gm/dL (13.0-17.5); Hypochromasia Slight; Lymphocytes # (A) 1.2 k/uL (1.0-4.8); Lymphocytes % (A) 13 %; MCH 25.2 pg (25.0-35.0); MCV 78.6 fL (80.0-100.0); Mean Platelet Volume 7.6; Microcytosis Slight; Monocytes # (A) 0.6 k/uL (0-1.0); Monocytes % (A) 6 %; Neutrophils # (A) 7.8 k/uL (1.3-7.7); Neutrophils % (A) 78 %; Platelet Count 180 k/uL (150-450); RBC 3.95 m/uL (4.30-5.90); RDW 17.2 % (11.5-15.5); WBC 9.9 k/uL (3.8-10.6)
[2020-09-21 13:26] LABS: Albumin 4.1 g/dL (3.5-5.0); Calcium 9.7 mg/dL (8.4-10.2); Potassium 4.6 mmol/L (3.5-5.1); Total Bilirubin 0.7 mg/dL (0.2-1.3); Total Protein 6.8 g/dL (6.3-8.2)
[2020-09-21 13:32] LABS: RBC,Urine >182 /hpf (0-5); Squamous Epithelial Cell,Urine 26 /hpf (0-4); WBC,Urine >182 /hpf (0-5)
[2020-09-21 13:33] LABS: Appearance,Urine Bloody (Clear); Color,Urine Dark Red
[2020-09-21 13:36] LABS: Prothrombin Time 10.3 sec (9.0-12.0)
[2020-09-21 13:50] LABS: Partial Thromboplastin Time 21.3 sec (22.0-30.0)
--- NOTE | 2020-09-21 14:26 | CT ---
Through EXAMINATION TYPE: CT abdomen pelvis w con DATE OF EXAM: 09/21/2020 COMPARISON: None HISTORY: gross hematuria, left flank pain CT DLP: 2538.4 mGycm CONTRAST: CT scan of the abdomen and pelvis is performed without Oral Contrast and with IV Contrast, patient in jected with 80 mL of Isovue 300. FINDINGS: LUNG BASES-: No visible nodule. No infiltrate. LIVER/GB: Cholelithiasis. No space occupying hepatic lesion. Biliary tree is of normal caliber. PANCREAS: No inflammation. No distinct mass. SPLEEN: No splenic enlargement. No lesion seen. ADRENALS: No nodule. No thickening. KIDNEYS/BLADDER: There is moderate right-sided hydroureteronephrosis extending to the right UVJ where there is a masslike area noted. Masslike area within the urinary bladder may reflect neoplasm and or clotted blood. There is also mild left-sided hydronephrosis without obstructing calculus. BOWEL: Normal appendix. Normal bowel caliber. No inflammation. GENITAL ORGANS: No gross abnormality. LYMPH NODES: No greater than 1cm abdominal or pelvic lymph nodes are appreciated. AORTA: No significant abnormality. OSSEOUS STRUCTURES: No significant abnormality is seen. OTHER: No significant additional abnormality is seen. IMPRESSION: 1. There is moderate right-sided hydroureteronephrosis extending to the right UVJ where there is a ma sslike area noted. Masslike area within the urinary bladder may reflect neoplasm and or clotted blood . There is also mild left-sided hydronephrosis without obstructing calculus.
[2020-09-21 14:31] LABS: Glucose,Whole Blood 115 mg/dL (75-99)
[2020-09-21] MEDS ORDERED: MORPHINE SULFATE 2 MG/ML SYRINGE IVP STA (15:38)
[2020-09-21] MEDS ORDERED: bisacodyL 5 MG TABLET.DR PO PRN (16:36)
[2020-09-21] MEDS ORDERED: ONDANSETRON 4 MG/2 ML VIAL IVP PRN (16:36)
[2020-09-21] MEDS ORDERED: NALOXONE 0.4 MG/ML 1 ML VIAL IV PRN (16:36)
[2020-09-21] MEDS ORDERED: DOCUSATE 100 MG CAP PO PRN (16:36)
[2020-09-21] MEDS ORDERED: SODIUM CHLORIDE 0.9% 1,000 ML IV ONE (16:37)
[2020-09-21 17:45] LABS: Calcium 9.3 mg/dL (8.4-10.2); Potassium 4.4 mmol/L (3.5-5.1)
--- NOTE | 2020-09-21 18:01 | P.HPIM ---
History of Present Illness H&P Date: 09/21/20 Chief Complaint: bloody urine 80-year-old man with medical history of kidney stones and bladder cancer, hypertension/hyperlipidemia/diabetes type 2/CAD presented for bloody urine. Patient said that starting yesterday he noticed that he started to have blood clots in his urine. Then he started to develop severe pain with urination as if he was trying to urinate a large kidney stone. The pain comes in cycles and feels accommodation of sharp with spasms. He took 2 extra strength Tylenol yesterday around 11 was able to sleep for proximally 4 hours before being woken up by the pain. is at bedside, notes that patient has been passing very thick, large blood clots. Patient denies fevers, chills, nausea, vomiting, chest pain, syncope, presyncope, dyspnea, cough, abdominal pain, diarrhea, constipation. Reports dysuria and hematuria. Denies melena/hematochezia. Denies numbness/weakness of extremities. Patient also has venous insufficiency and has had increasing swelling of his right lower extremity. Patient is not on any blood thinners at home. In the emergency room patient is afebrile, hemodynamically stable. CBC is significant for hemoglobin of 9.9 down from 12.9. PTT is mildly elevated at 21.3. Chemistries demonstrate a creatinine of 1.4. LFTs are unremarkable. UA demonstrates gross hematuria. Covid is negative. Computed tomography scan of the abdomen/pelvis demonstrated moderate right-sided hydrouretero nephrosis, left-sided hydronephrosis which is mild. There is also concern on imaging for an obstructive basket the UVJ. Patient will be admitted to medicine with neurology consult for further management and workup. Review of Systems All Systems reviewed and pertinent positives and negatives noted in HPI, all other symptoms are negative Past Medical History Past Medical History: Cancer, Diabetes Mellitus, Eye Disorder, [place] Infarction ([place]) Additional Past Medical History / Comment(s): recent tx of infected cracked tooth.SEE DR SANCHEZ'S H&P, RT EYE ANEURYSM, HX OF BLADDER CA-CHEMO TX 2016 Last Myocardial Infarction Date:: 2005 History of Any Multi-Drug Resistant Organisms: None Reported Past Surgical History: AICD, Appendectomy, Heart Catheterization, Joint Replacement, Orthopedic Surgery Additional Past Surgical History / Comment(s): LEON KNEE ARTHROSCOPIES, LEON KNEE REPLACEMENTS, BLADDER TUMOR REMOVED, DEFIB TESTING, EP STUDY Past Anesthesia/Blood Transfusion Reactions: No Reported Reaction Additional Past Anesthesia/Blood Transfusion Reaction / Comment(s): no hx blood transfusion Type of Cardiac Device: AICD Device Placement Date:: 2011 [employer] Past Psychological History: No Psychological Hx Reported Smoking Status: Former smoker Past Alcohol Use History: None Reported Past Drug Use History: None Reported - Past Family History Mother Family Medical History: No Reported History Father Family Medical History: Congestive Heart Failure (CHF) Medications and Allergies Home Medications Medication Instructions Recorded Confirmed Type RX: Aspirin 81 mg PO DAILY 08/31/14 09/21/20 History RX: Atorvastatin [Lipitor] 40 mg PO DAILY 08/31/14 09/21/20 History RX: Carvedilol [Coreg] 12.5 mg PO BID 08/31/14 09/21/20 History RX: Furosemide 20 mg PO DAILY 08/31/14 09/21/20 History RX: Insulin Glargine,Hum.rec.anlog 14 unit SQ AC-BID@1200,1600 08/31/14 09/21/20 History [Lantus Solostar] RX: Insulin Lispro [humaLOG 10 unit SQ AC-BRKFST 08/31/14 09/21/20 History Kwikpen] RX: Potassium Chloride [Klor-Con 10 meq PO BID 08/31/14 09/21/20 History 10] RX: metFORMIN HCL 1,000 mg PO BID 08/31/14 09/21/20 History RX: Cholecalciferol [Vitamin D3 125 mcg PO DAILY 08/11/16 09/21/20 History (25 Mcg = 1000 Iu)] RX: Cyanocobalamin (Vitamin B-12) 1,000 mcg PO DAILY 08/11/16 09/21/20 History [Vitamin B-12] RX: Insulin Lispro [humaLOG 8 unit SQ AC-LUNCH 08/11/16 09/21/20 History Kwikpen] RX: Losartan [Cozaar] 25 mg PO DAILY 07/18/18 09/21/20 History Insulin Lispro [humaLOG Kwikpen] 5 unit SQ AC-SUPPER 09/21/20 09/21/20 History Allergies Allergy/AdvReac Type Severity Reaction Status Date / Time atenolol [From Tenormin] Allergy Swelling. Verified 09/21/20 14:34 REDNESS OF SKIN benazepril HCl Allergy Swelling. Verified 09/21/20 14:34 [From Lotensin] REDNESS OF SKIN Penicillins Allergy Swelling. Verified 09/21/20 14:34 REDNESS SKIN tetracycline Allergy Swelling.REDNESS Verified 09/21/20 14:34 OF SKIN Physical Exam Osteopathic Statement: *. No significant issues noted on an osteopathic str uctural exam other than those noted in the History and Physical/Consult. Vitals: Vital Signs Temp Pulse Resp BP Pulse Ox 09/21/20 16:41 98.8 F 71 18 124/54 96 09/21/20 12:25 98.6 F 78 18 120/67 96 Intake and Output 09/21/20 09/21/20 09/21/20 06:59 14:59 22:59 Other: Voiding Method Toilet Weight 112.491 kg Gen: awake, alert HEENT: normocephalic, atraumatic, good hearing acuity, moist mucous membranes Resp: good air exchange, breathing comfortably with no accessory muscle use, clear to auscultation bilaterally without wheezes or crackles CVS: good distal perfusion x 4, regular rate and rhythm without murmurs GI: soft, NTTP, ND : +SPT, no CVAT, nam catheter not present MSK: no pitting edema, no clubbing Neuro: non-focal, moving all extremities Psych: cooperative, euthymic mood Results CBC & Chem 7: 09/21/20 13:04 09/21/20 17:17 Labs: Abnormal Lab Results - Last 24 Hours (Table) 09/21/20 09/21/20 09/21/20 Range/Units 13:04 13:04 13:04 RBC 3.95 L (4.30-5.90) m/uL Hgb 9.9 L (13.0-17.5) gm/dL Hct 31.0 L (39.0-53.0) % MCV 78.6 L (80.0-100.0) fL RDW 17.2 H (11.5-15.5) % Neutrophils # 7.8 H (1.3-7.7) k/uL APTT 21.3 L (22.0-30.0) sec Sodium (137-145) mmol/L Chloride (98-107) mmol/L BUN (9-20) mg/dL Creatinine (0.66-1.25) mg/dL Glucose (74-99) mg/dL POC Glucose (mg/dL) (75-99) mg/dL Urine RBC >182 H (0-5) /hpf Urine WBC >182 H (0-5) /hpf Ur Squamous Epith Cells 26 H (0-4) /hpf 09/21/20 09/21/20 09/21/20 Range/Units 13:04 14:29 17:17 RBC (4.30-5.90) m/uL Hgb (13.0-17.5) gm/dL Hct (39.0-53.0) % MCV (80.0-100.0) fL RDW (11.5-15.5) % Neutrophils # (1.3-7.7) k/uL APTT (22.0-30.0) sec Sodium 135 L 133 L (137-145) mmol/L Chloride 97 L (98-107) mmol/L BUN 26 H 25 H (9-20) mg/dL Creatinine 1.40 H 1.29 H (0.66-1.25) mg/dL Glucose 112 H 167 H (74-99) mg/dL POC Glucose (mg/dL) 115 H (75-99) mg/dL Urine RBC (0-5) /hpf Urine WBC (0-5) /hpf Ur Squamous Epith Cells (0-4) /hpf Assessment and Plan Assessment: Gross hematuria Suprapubic pain History of bladder cancer History of kidney stones -Admitted to inpatient -Urology consult -Hold DVT prophylaxis, aspirin -Patient may warrant Nam placement with irrigation, pending urology consultation -Morphine when necessary for pain -UA negative for UTI -Follow up CBCs CAD HTN HLD Diabetes type 2 -Home medications reviewed and reconciled: Resume Coreg, Lipitor, insulin -Q6h sugar checks with low-dose sliding scale insulin -Holding home aspirin, metformin, Lasix Patient is a full code is DPOA
[2020-09-21] MEDS: carvediloL 12.5 MG TAB PO SCH (18:14)
[2020-09-21] MEDS: INSULIN ASPART (NovoLOG) 100 UNIT/ML VIAL SQ SCH ×2 (20:19→20:20)
[2020-09-22 00:16] LABS: Glucose,Whole Blood 117 mg/dL (75-99)
[2020-09-22] MEDS: INSULIN ASPART (NovoLOG) 100 UNIT/ML VIAL SQ SCH ×8 (00:32→21:40)
[2020-09-22] MEDS: MORPHINE SULFATE 4 MG/ML SYRINGE IV PRN (02:29)
[2020-09-22 04:07] LABS: Anisocytosis Slight; Basophils % (A) 0 %; Eosinophils # (A) 0.1 k/uL (0-0.7); Eosinophils % (A) 2 %; HGB 8.7 gm/dL (13.0-17.5); Hypochromasia Moderate; Lymphocytes # (A) 1.1 k/uL (1.0-4.8); Lymphocytes % (A) 15 %; MCH 25.4 pg (25.0-35.0); MCHC 32.3 g/dL (31.0-37.0); MCV 78.6 fL (80.0-100.0); Mean Platelet Volume 7.6; Microcytosis Slight; Monocytes # (A) 0.5 k/uL (0-1.0); Monocytes % (A) 6 %; Neutrophils # (A) 5.8 k/uL (1.3-7.7); Neutrophils % (A) 76 %; Platelet Count 155 k/uL (150-450); RBC 3.44 m/uL (4.30-5.90); RDW 17.4 % (11.5-15.5); WBC 7.6 k/uL (3.8-10.6)
[2020-09-22 06:13] LABS: Glucose,Whole Blood 136 mg/dL (75-99)
[2020-09-22 07:43] LABS: Glucose,Whole Blood 150 mg/dL (75-99)
[2020-09-22] MEDS: ATORVASTATIN 40 MG TAB PO SCH (09:41)
[2020-09-22] MEDS: carvediloL 12.5 MG TAB PO SCH ×2 (09:41→18:05)
[2020-09-22] MEDS: CYANOCOBALAMIN 500 MCG TAB PO SCH (09:42)
[2020-09-22] MEDS: CHOLECALCIFEROL 25 MCG (1000 IU) TABLET PO SCH (09:42)
--- NOTE | 2020-09-22 11:40 | P.GSCN ---
History of Present Illness Consult date: 09/22/20 History of present illness: 80-year-old gentleman admitted with gross hematuria and clot urinary retention. Patient has a history of bladder cancer treated with resection by 3 years ago. He was placed on BCG intravesical therapy. He apparently had follow-up cystoscopy that identified a small recurrence. This is removed. He has not had any recurrence since. He has not had anymore BCG. He last saw Dr. Santiago in the fall. He was scheduled for cystoscopy in October. He had gross hematuria couple days ago and went into clot retention. Computed tomography scan showed some I'll bilateral hydronephrosis and a filling defect in the bladder either clot or tumor. He has old blood in the urine at present. He is on aspirin. Review of Systems All systems: negative - Constitutional Denies fever, Denies weight loss - EENT Eyes: denies blurred vision Ears, nose, mouth and throat: Denies dysphagia - Cardiovascular Denies chest pain, Denies shortness of breath - Respiratory Denies cough, Denies 7 - Gastrointestinal Reports as per HPI - Genitourinary Denies dysuria, Denies hematuria - Integumentary Denies rash, Denies unusual bruising - Neurological Denies headaches, Denies syncope - Hematologic/Lymphatic Denies easy bleeding, Denies easy bruising Past Medical History Past Medical History: Cancer, Diabetes Mellitus, Eye Disorder, Myocardial Infarction ([place]) Additional Past Medical History / Comment(s): recent tx of infected cracked tooth.SEE DR SANCHEZ'S H&P, RT EYE ANEURYSM, HX OF BLADDER CA-CHEMO TX 2015 Last Myocardial Infarction Date:: 2005 History of Any Multi-Drug Resistant Organisms: None Reported Past Surgical History: AICD, Appendectomy, Heart Catheterization, Joint Replacement, Orthopedic Surgery Additional Past Surgical History / Comment(s): LEON KNEE ARTHROSCOPIES, LEON KNEE REPLACEMENTS, BLADDER TUMOR REMOVED, DEFIB TESTING, EP STUDY Past Anesthesia/Blood Transfusion Reactions: No Reported Reaction Additional Past Anesthesia/Blood Transfusion Reaction / Comm: no hx blood transfusion Type of Cardiac Device: AICD Device Placement Date:: 2011 [facility] Past Psychological History: No Psychological Hx Reported Smoking Status: Former smoker Past Alcohol Use History: None Reported Additional Past Alcohol Use History / Comment(s): STARTED SMOKING 1967, QUIT 1986 1PPD Past Drug Use History: None Reported - Past Family History Mother Family Medical History: No Reported History Father Family Medical History: Congestive Heart Failure (CHF) Medications and Allergies Home Medications Medication Instructions Recorded Confirmed Type Aspirin 81 mg PO DAILY 08/31/14 09/21/20 History Atorvastatin [Lipitor] 40 mg PO DAILY 08/31/14 09/21/20 History Carvedilol [Coreg] 12.5 mg PO BID 08/31/14 09/21/20 History Furosemide 20 mg PO DAILY 08/31/14 09/21/20 History Insulin Glargine,Hum.rec.anlog 14 unit SQ AC-BID@1200,1600 08/31/14 09/21/20 History [Lantus Solostar] Insulin Lispro [humaLOG Kwikpen] 10 unit SQ AC-BRKFST 08/31/14 09/21/20 History Potassium Chloride [Klor-Con 10] 10 meq PO BID 08/31/14 09/21/20 History metFORMIN HCL 1,000 mg PO BID 08/31/14 09/21/20 History Cholecalciferol [Vitamin D3 (25 125 mcg PO DAILY 08/11/16 09/21/20 History Mcg = 1000 Iu)] Cyanocobalamin (Vitamin B-12) 1,000 mcg PO DAILY 08/11/16 09/21/20 History [Vitamin B-12] Insulin Lispro [humaLOG Kwikpen] 8 unit SQ AC-LUNCH 08/11/16 09/21/20 History Losartan [Cozaar] 25 mg PO DAILY 07/18/18 09/21/20 History Insulin Lispro [humaLOG Kwikpen] 5 unit SQ AC-SUPPER 09/21/20 09/21/20 History Allergies Allergy/AdvReac Type Severity Reaction Status Date / Time atenolol [From Tenormin] Allergy Swelling. Verified 09/21/20 14:34 REDNESS OF SKIN benazepril HCl Allergy Swelling. Verified 09/21/20 14:34 [From Lotensin] REDNESS OF SKIN Penicillins Allergy Swelling. Verified 09/21/20 14:34 REDNESS SKIN tetracycline Allergy Swelling.REDNESS Verified 09/21/20 14:34 OF SKIN Surgical - Exam Vital Signs Temp Pulse Resp BP Pulse Ox 98.6 F 78 18 120/67 96 09/21/20 12:25 09/21/20 12:25 09/21/20 12:25 09/21/20 12:25 09/21/20 12:25 - General well developed, well nourished, no distress - ENT no hearing loss - Neck trachea midline - Respiratory normal expansion, normal respiratory effort - Cardiovascular Rhythm: regular - Abdomen Abdomen: soft, non tender - Genitourinary Circumcised phallus with indwelling catheter and old blood in the tubing - Integumentary no rash, no growths - Neurologic normal coordination, normal sensation - Musculoskeletal normal posture - Psychiatric oriented to time, oriented to person, oriented to place, speech is normal, memory intact Results - Labs 09/22/20 03:21 09/21/20 17:17 Abnormal Lab Results - Last 24 Hours (Table) 09/21/20 09/21/20 09/21/20 Range/Units 13:04 13:04 13:04 RBC 3.95 L (4.30-5.90) m/uL Hgb 9.9 L (13.0-17.5) gm/dL Hct 31.0 L (39.0-53.0) % MCV 78.6 L (80.0-100.0) fL RDW 17.2 H (11.5-15.5) % Neutrophils # 7.8 H (1.3-7.7) k/uL APTT 21.3 L (22.0-30.0) sec Sodium (137-145) mmol/L Chloride (98-107) mmol/L BUN (9-20) mg/dL Creatinine (0.66-1.25) mg/dL Glucose (74-99) mg/dL POC Glucose (mg/dL) (75-99) mg/dL Urine RBC >182 H (0-5) /hpf Urine WBC >182 H (0-5) /hpf Ur Squamous Epith Cells 26 H (0-4) /hpf 09/21/20 09/21/20 09/21/20 Range/Units 13:04 14:29 17:17 RBC (4.30-5.90) m/uL Hgb (13.0-17.5) gm/dL Hct (39.0-53.0) % MCV (80.0-100.0) fL RDW (11.5-15.5) % Neutrophils # (1.3-7.7) k/uL APTT (22.0-30.0) sec Sodium 135 L 133 L (137-145) mmol/L Chloride 97 L (98-107) mmol/L BUN 26 H 25 H (9-20) mg/dL Creatinine 1.40 H 1.29 H (0.66-1.25) mg/dL Glucose 112 H 167 H (74-99) mg/dL POC Glucose (mg/dL) 115 H (75-99) mg/dL Urine RBC (0-5) /hpf Urine WBC (0-5) /hpf Ur Squamous Epith Cells (0-4) /hpf 09/22/20 09/22/20 09/22/20 Range/Units 00:15 03:21 06:11 RBC 3.44 L (4.30-5.90) m/uL Hgb 8.7 L (13.0-17.5) gm/dL Hct 27.0 L (39.0-53.0) % MCV 78.6 L (80.0-100.0) fL RDW 17.4 H (11.5-15.5) % Neutrophils # (1.3-7.7) k/uL APTT (22.0-30.0) sec Sodium (137-145) mmol/L Chloride (98-107) mmol/L BUN (9-20) mg/dL Creatinine (0.66-1.25) mg/dL Glucose (74-99) mg/dL POC Glucose (mg/dL) 117 H 136 H (75-99) mg/dL Urine RBC (0-5) /hpf Urine WBC (0-5) /hpf Ur Squamous Epith Cells (0-4) /hpf 09/22/20 Range/Units 07:38 RBC (4.30-5.90) m/uL Hgb (13.0-17.5) gm/dL Hct (39.0-53.0) % MCV (80.0-100.0) fL RDW (11.5-15.5) % Neutrophils # (1.3-7.7) k/uL APTT (22.0-30.0) sec Sodium (137-145) mmol/L Chloride (98-107) mmol/L BUN (9-20) mg/dL Creatinine (0.66-1.25) mg/dL Glucose (74-99) mg/dL POC Glucose (mg/dL) 150 H (75-99) mg/dL Urine RBC (0-5) /hpf Urine WBC (0-5) /hpf Ur Squamous Epith Cells (0-4) /hpf Microbiology - Last 24 Hours (Table) 09/21/20 13:04 Urine Culture - Preliminary Urine,Voided Diabetes panel 09/21/20 09/21/20 Range/Units 13:04 17:17 Sodium 135 L 133 L (137-145) mmol/L Potassium 4.6 4.4 (3.5-5.1) mmol/L Chloride 97 L 98 (98-107) mmol/L Carbon Dioxide 29 27 (22-30) mmol/L BUN 26 H 25 H (9-20) mg/dL Creatinine 1.40 H 1.29 H (0.66-1.25) mg/dL Glucose 112 H 167 H (74-99) mg/dL Calcium 9.7 9.3 (8.4-10.2) mg/dL AST 23 (17-59) U/L ALT 15 (4-49) U/L Alkaline Phosphatase 91 (38-126) U/L Total Protein 6.8 (6.3-8.2) g/dL Albumin 4.1 (3.5-5.0) g/dL Calcium panel 09/21/20 09/21/20 Range/Units 13:04 17:17 Calcium 9.7 9.3 (8.4-10.2) mg/dL Albumin 4.1 (3.5-5.0) g/dL Pituitary panel 09/21/20 09/21/20 Range/Units 13:04 17:17 Sodium 135 L 133 L (137-145) mmol/L Potassium 4.6 4.4 (3.5-5.1) mmol/L Chloride 97 L 98 (98-107) mmol/L Carbon Dioxide 29 27 (22-30) mmol/L BUN 26 H 25 H (9-20) mg/dL Creatinine 1.40 H 1.29 H (0.66-1.25) mg/dL Glucose 112 H 167 H (74-99) mg/dL Calcium 9.7 9.3 (8.4-10.2) mg/dL Adrenal panel 09/21/20 09/21/20 Range/Units 13:04 17:17 Sodium 135 L 133 L (137-145) mmol/L Potassium 4.6 4.4 (3.5-5.1) mmol/L Chloride 97 L 98 (98-107) mmol/L Carbon Dioxide 29 27 (22-30) mmol/L BUN 26 H 25 H (9-20) mg/dL Creatinine 1.40 H 1.29 H (0.66-1.25) mg/dL Glucose 112 H 167 H (74-99) mg/dL Calcium 9.7 9.3 (8.4-10.2) mg/dL Total Bilirubin 0.7 (0.2-1.3) mg/dL AST 23 (17-59) U/L ALT 15 (4-49) U/L Alkaline Phosphatase 91 (38-126) U/L Total Protein 6.8 (6.3-8.2) g/dL Albumin 4.1 (3.5-5.0) g/dL - Imaging CT scan - abdomen: report reviewed, image reviewed CT scan - pelvis: report reviewed, image reviewed Assessment and Plan Assessment: Impression: Gross hematuria and clot retention. History of bladder cancer. Anemia secondary to bleeding. Multiple medical problems as outlined in the history and physical. Recommendations: The patient will undergo cystoscopy clot evacuation and probable resection of recurrent bladder tumor. This is been outlined to the patient. Time with Patient: Greater than 30
[2020-09-22 12:22] LABS: Glucose,Whole Blood 148 mg/dL (75-99)
[2020-09-22] MEDS: INSULIN DETEMIR (LEVEMIR) 100 UNIT/ML SYR SQ SCH ×2 (12:40→15:41)
[2020-09-22 14:47] LABS: Anisocytosis Slight; Basophils % (A) 0 %; Eosinophils # (A) 0.2 k/uL (0-0.7); Eosinophils % (A) 2 %; HCT 27.5 % (39.0-53.0); HGB 8.6 gm/dL (13.0-17.5); Hypochromasia Marked; Lymphocytes % (A) 12 %; MCH 25.3 pg (25.0-35.0); MCHC 31.3 g/dL (31.0-37.0); MCV 80.7 fL (80.0-100.0); Mean Platelet Volume 8.1; Microcytosis Slight; Monocytes # (A) 0.5 k/uL (0-1.0); Monocytes % (A) 5 %; Neutrophils # (A) 6.6 k/uL (1.3-7.7); Neutrophils % (A) 80 %; Platelet Count 160 k/uL (150-450); RBC 3.41 m/uL (4.30-5.90); RDW 17.4 % (11.5-15.5); WBC 8.3 k/uL (3.8-10.6)
--- NOTE | 2020-09-22 16:28 | US ---
EXAMINATION TYPE: US venous doppler duplex LE RT DATE OF EXAM: 09/22/2020 4:02 PM COMPARISON: NONE CLINICAL HISTORY: rule out DVT/Swelling. Right leg and foot swelling, no h/o DVT SIDE PERFORMED: Right TECHNIQUE: The lower extremity deep venous system is examined utilizing real time linear array sonog stef with graded compression, doppler sonography and color-flow sonography. VESSELS IMAGED: Common Femoral Vein Deep Femoral Vein Greater Saphenous Vein * Femoral Vein Popliteal Vein Small Saphenous Vein * Proximal Calf Veins (* superficial vessels) Right Leg: Thrombus seen within proximal calf veins extending up through proximal popiteal vein, vei n is noncompressible, minimal flow seen IMPRESSION: 1. Acute Deep venous thrombosis within the proximal calf veins extending through the proximal poplite al vein which is noncompressible with minimal flow seen.
[2020-09-22 17:12] LABS: Glucose,Whole Blood 188 mg/dL (75-99)
[2020-09-22 21:05] LABS: Glucose,Whole Blood 198 mg/dL (75-99)
--- NOTE | 2020-09-22 22:44 | P.PN ---
Progress Note - Text Progress Note Date: 09/22/20 Presenting complaint: Bloody urine Hospital course 80-year-old man with medical history of kidney stones and bladder cancer, hypertension/hyperlipidemia/diabetes type 2/CAD presented for bloody urine. Patient said that starting yesterday he noticed that he started to have blood clots in his urine. Then he started to develop severe pain with urination as if he was trying to urinate a large kidney stone. The pain comes in cycles and feels accommodation of sharp with spasms. He took 2 extra strength Tylenol yesterday around 11 was able to sleep for proximally 4 hours before being woken up by the pain. is at bedside, notes that patient has been passing very thick, large blood clots. Patient denies fevers, chills, nausea, vomiting, chest pain, syncope, presyncope, dyspnea, cough, abdominal pain, diarrhea, constipation. Reports dysuria and hematuria. Denies melena/hematochezia. Denies numbness/weakness of extremities. Patient also has venous insufficiency and has had increasing swelling of his right lower extremity. Patient is not on any blood thinners at home. Patient has history of bladder cancer treated with resection by Dr. Marylou Bowser 3 years ago. Placed on BCG intravesical therapy. A follow-up cystoscopy r showed a small recurrence-that was removed. Computed tomography scan of the abdomen/pelvis demonstrated moderate right- sided hydrouretero nephrosis, left-sided hydronephrosis which is mild. There is also concern on imaging for an obstructive basket the UVJ. Today: Sitting up in a chair. at the bedside. Posada catheter. Hematuria. Plan is for cystoscopy with evacuation of tumor tomorrow. Right leg swelling. Review of systems: Was done for constitutional, cardiovascular, GI, pulmonary. relevant finding as above Active Medications Acetaminophen (Acetaminophen Tab 325 Mg Tab) 650 mg PO Q6HR PRN PRN Reason: Mild Pain or Fever > 100.5 Atorvastatin Calcium (Atorvastatin 40 Mg Tab) 40 mg PO DAILY [facility] Last Admin: 09/22/20 09:41 Dose: 40 mg Documented by: Bisacodyl (Bisacodyl 5 Mg Tablet.) 5 mg PO DAILY PRN PRN Reason: Constipation Carvedilol (Carvedilol 12.5 Mg Tab) 12.5 mg PO BID-W/MEALS [facility] Last Admin: 09/22/20 18:05 Dose: 12.5 mg Documented by: Cholecalciferol (Cholecalciferol 25 Mcg (1000 Iu) Tablet) 125 mcg PO DAILY [facility] Last Admin: 09/22/20 09:42 Dose: 125 mcg Documented by: Cyanocobalamin (Cyanocobalamin 500 Mcg Tab) 1,000 mcg PO DAILY [facility] Last Admin: 09/22/20 09:42 Dose: 1,000 mcg Documented by: Docusate Sodium (Docusate 100 Mg Cap) 100 mg PO BID PRN PRN Reason: Constipation Insulin Aspart (Insulin Aspart (Novolog) 100 Unit/Ml Vial) 5 unit SQ AC-SUPPER [facility] Last Admin: 09/22/20 18:05 Dose: 5 unit Documented by: Insulin Aspart (Insulin Aspart (Novolog) 100 Unit/Ml Vial) 8 unit SQ AC-LUNCH [facility] Last Admin: 09/22/20 12:41 Dose: 8 unit Documented by: Insulin Aspart (Insulin Aspart (Novolog) 100 Unit/Ml Vial) 10 unit SQ AC-BRKFST [facility] Last Admin: 09/22/20 09:41 Dose: Not Given Documented by: Insulin Aspart (Insulin Aspart (Novolog) 100 Unit/Ml Vial) 0 unit SQ ACHS [facility]; Protocol Last Admin: 09/22/20 21:40 Dose: Not Given Documented by: Insulin Detemir (Insulin Detemir (Levemir) 100 Unit/Ml Syr) 14 unit SQ AC- BID@1200,1600 [facility] Last Admin: 09/22/20 15:41 Dose: Not Given Documented by: Morphine Sulfate (Morphine Sulfate 4 Mg/Ml Syringe) 4 mg IV Q4HR PRN PRN Reason: Severe Pain Last Admin: 09/22/20 02:29 Dose: 4 mg Documented by: Naloxone HCl (Naloxone 0.4 Mg/Ml 1 Ml Vial) 0.2 mg IV Q2M PRN PRN Reason: Opioid Reversal Ondansetron HCl (Ondansetron 4 Mg/2 Ml Vial) 4 mg IVP Q8HR PRN PRN Reason: Nausea And Vomiting On examination: VITAL SIGNS: 97.9, 77, 18, 106/47, 99% room air GENERAL APPEARANCE: BMI 33.6, sitting up in a chair, tired. HEENT: Normal external appearance of nose and ear. Oral cavity normal. Hard of hearing EYES: Pupils equal. Conjunctiva normal. NECK: JVD not raised. Mass not palpable. RESPIRATORY: Respiratory effort normal. Lungs decreased breath sounds CARDIOVASCULAR: First and second sounds normal. No edema. ABDOMEN: Soft. Liver and spleen not palpable. No tenderness. No mass palpable. Posada catheter with some bloodstained urine PSYCHIATRY: Alert and oriented x3. Mood and affect normal. INVESTIGATIONS, reviewed in the clinical context: WBC 8.3 hemoglobin 8.6 platelets 160 Assessment and plan: -Likely recurrence of bladder tumor/cancer Patient had prior bladder cancer resection by Dr. Santiago with 3 years ago and was treated with BCG. Now pending repeat cystoscopy tomorrow -Acute DVT in the right leg Because of active bleeding with hematuria will hold off any antibiotic medication for now. We'll consult vascular May have to consider doing retrievable IVC filter prior to cystoscopy. -Diabetes mellitus type 2, on oral hypoglycemic Follow Accu-Cheks -AICD -Primary osteoarthritis -Coronary artery disease with prior SC Continue with Coreg -Hyperlipidemia Continue with Lipitor -Essential hypertension On Cozaar and beta gabriele -Acute blood loss anemia from severe recurrent hematuria from bladder tumor Follow H&H Ali today. Prognosis on did confirm a DVT in the right shoulder daily. Vascular surgery is consulted with a view to possible placement of retrievable IVC filter before cystoscopy done. I will let Dr. Posada discussed this with Dr. Reyna to take a final decision
[2020-09-23 06:35] LABS: Anisocytosis Slight; Basophils % (A) 0 %; Eosinophils # (A) 0.4 k/uL (0-0.7); Eosinophils % (A) 4 %; HCT 25.8 % (39.0-53.0); HGB 8.3 gm/dL (13.0-17.5); Hypochromasia Moderate; Lymphocytes # (A) 1.2 k/uL (1.0-4.8); Lymphocytes % (A) 14 %; MCH 25.5 pg (25.0-35.0); MCHC 32.2 g/dL (31.0-37.0); MCV 79.3 fL (80.0-100.0); Mean Platelet Volume 7.6; Microcytosis Slight; Monocytes # (A) 0.6 k/uL (0-1.0); Monocytes % (A) 6 %; Neutrophils # (A) 6.6 k/uL (1.3-7.7); Neutrophils % (A) 75 %; Platelet Count 167 k/uL (150-450); RBC 3.25 m/uL (4.30-5.90); RDW 17.4 % (11.5-15.5); WBC 8.8 k/uL (3.8-10.6)
[2020-09-23 07:07] LABS: Glucose,Whole Blood 141 mg/dL (75-99)
[2020-09-23] MEDS: INSULIN ASPART (NovoLOG) 100 UNIT/ML VIAL SQ SCH ×7 (07:36→21:02)
[2020-09-23] MEDS: CHOLECALCIFEROL 25 MCG (1000 IU) TABLET PO SCH (09:53)
[2020-09-23] MEDS: ATORVASTATIN 40 MG TAB PO SCH (09:53)
[2020-09-23] MEDS: CYANOCOBALAMIN 500 MCG TAB PO SCH (09:56)
[2020-09-23] MEDS: carvediloL 12.5 MG TAB PO SCH ×2 (09:56→18:29)
[2020-09-23 12:08] LABS: Glucose,Whole Blood 138 mg/dL (75-99)
--- NOTE | 2020-09-23 13:13 | P.GSCN ---
History of Present Illness Consult date: 09/23/20 Reason for Consult: Right Lower extremity DVT Requesting physician: Yosvany Leonard History of present illness: This is a 80-year-old male patient who presented to the emergency department with concerns of left flank pain and urinating blood with clots. He has a past medical history including kidney stones, bladder cancer, hypertension, hyperlipidemia, type 2 diabetes, and coronary artery disease. He was developing severe pain with urination and passing blood clots in his urine. He also was developing severe flank pain. He denies any a fever, chills, nausea, vomiting, chest pain, abdominal pain, or shortness of breath. Before meals has had swelling in bilateral lower extremities for greater than a year, he has had previous venous Doppler ultrasounds which he states were negative for DVT. He was noted to have swelling in bilateral lower extremities but right greater than left. He denies any pain to his lower extremities, states that he wears compression stockings with SCD sleeves at home and elevates. He had a venous Doppler ultrasound on the right lower extremity which was positive for a DVT acc ident there was acute deep venous thrombosis within the proximal calf veins extending through the proximal popliteal vein which is noncompressible with minimal flow seen. Review of Systems A 14 point review systems was completed all pertinent positives and negatives as stated in the HPI Past Medical History Past Medical History: Cancer, Diabetes Mellitus, Eye Disorder, Myocardial Infarction ([place]) Additional Past Medical History / Comment(s): recent tx of infected cracked tooth.SEE DR SANCHEZ'S H&P, RT EYE ANEURYSM, HX OF BLADDER CA-CHEMO TX 2015 Last Myocardial Infarction Date:: 2005 History of Any Multi-Drug Resistant Organisms: None Reported Past Surgical History: AICD, Appendectomy, Heart Catheterization, Joint Replacement, Orthopedic Surgery Additional Past Surgical History / Comment(s): LEON KNEE ARTHROSCOPIES, LEON KNEE REPLACEMENTS, BLADDER TUMOR REMOVED, DEFIB TESTING, EP STUDY Past Anesthesia/Blood Transfusion Reactions: No Reported Reaction Additional Past Anesthesia/Blood Transfusion Reaction / Comm: no hx blood transfusion Type of Cardiac Device: AICD Device Placement Date:: 2011 [facility],2005 Past Psychological History: No Psychological Hx Reported Smoking Status: Former smoker Past Alcohol Use History: None Reported Additional Past Alcohol Use History / Comment(s): STARTED SMOKING 1967, QUIT 1986 1PPD Past Drug Use History: None Reported - Past Family History Mother Family Medical History: No Reported History Father Family Medical History: Congestive Heart Failure (CHF) Medications and Allergies Home Medications Medication Instructions Recorded Confirmed Type Aspirin 81 mg PO DAILY 08/31/14 09/21/20 History Atorvastatin [Lipitor] 40 mg PO DAILY 08/31/14 09/21/20 History Carvedilol [Coreg] 12.5 mg PO BID 08/31/14 09/21/20 History Furosemide 20 mg PO DAILY 08/31/14 09/21/20 History Insulin Glargine,Hum.rec.anlog 14 unit SQ AC-BID@1200,1600 08/31/14 09/21/20 History [Lantus Solostar] Insulin Lispro [humaLOG Kwikpen] 10 unit SQ AC-BRKFST 08/31/14 09/21/20 History Potassium Chloride [Klor-Con 10] 10 meq PO BID 08/31/14 09/21/20 History metFORMIN HCL 1,000 mg PO BID 08/31/14 09/21/20 History Cholecalciferol [Vitamin D3 (25 125 mcg PO DAILY 08/11/16 09/21/20 History Mcg = 1000 Iu)] Cyanocobalamin (Vitamin B-12) 1,000 mcg PO DAILY 08/11/16 09/21/20 History [Vitamin B-12] Insulin Lispro [humaLOG Kwikpen] 8 unit SQ AC-LUNCH 08/11/16 09/21/20 History Losartan [Cozaar] 25 mg PO DAILY 07/18/18 09/21/20 History Insulin Lispro [humaLOG Kwikpen] 5 unit SQ AC-SUPPER 09/21/20 09/21/20 History Allergies Allergy/AdvReac Type Severity Reaction Status Date / Time atenolol [From Tenormin] Allergy Swelling. Verified 09/21/20 14:34 REDNESS OF SKIN benazepril HCl Allergy Swelling. Verified 09/21/20 14:34 [From Lotensin] REDNESS OF SKIN Penicillins Allergy Swelling. Verified 09/21/20 14:34 REDNESS SKIN tetracycline Allergy Swelling.REDNESS Verified 09/21/20 14:34 OF SKIN Surgical - Exam Vital Signs Temp Pulse Resp BP Pulse Ox 98.6 F 78 18 120/67 96 09/21/20 12:25 09/21/20 12:25 09/21/20 12:25 09/21/20 12:25 09/21/20 12:25 General appearance: The patient is alert, oriented, appears in no acute distress. HET: Head is normocephalic and atraumatic. Neck: Supple without lymphadenopathy. Trachea midline. Heart: S1 S2. Regular rate and rhythm. Lungs: No crackles or wheezes are heard. Abdomen: Soft, nontender, nondistended. Extremities: Normal skin color and turgor. Bilateral lower extremity edema, right greater than left. Negative Homans, no pain to palpation. Unable to palpate dorsalis pedis due to edema. Has multiphasic posterior tibialis and dorsalis pedis Doppler signal. Neurological: No focal deficits. Strength and sensation are grossly intact. Results - Labs 09/23/20 06:10 09/21/20 17:17 Abnormal Lab Results - Last 24 Hours (Table) 09/22/20 09/22/20 09/22/20 Range/Units 12:01 14:35 17:11 RBC 3.41 L (4.30-5.90) m/uL Hgb 8.6 L (13.0-17.5) gm/dL Hct 27.5 L (39.0-53.0) % MCV (80.0-100.0) fL RDW 17.4 H (11.5-15.5) % POC Glucose (mg/dL) 148 H 188 H (75-99) mg/dL 09/22/20 09/23/20 09/23/20 Range/Units 21:01 06:10 07:05 RBC 3.25 L (4.30-5.90) m/uL Hgb 8.3 L (13.0-17.5) gm/dL Hct 25.8 L (39.0-53.0) % MCV 79.3 L (80.0-100.0) fL RDW 17.4 H (11.5-15.5) % POC Glucose (mg/dL) 198 H 141 H (75-99) mg/dL Microbiology - Last 24 Hours (Table) 09/21/20 13:04 Urine Culture - Preliminary Urine,Voided Gram Neg Bacilli - Imaging Additional studies: Doppler ultrasound right lower extremity: Acute deep venous thrombus within the proximal calf veins extending through the proximal popliteal vein which is noncompressible with minimal flow seen Assessment and Plan Assessment: 1. Right lower extremity deep vein thrombosis 2. Bilateral lower extremity edema 3. Hematuria 4. History of bladder cancer 5. Diabetes mellitus Plan: 1. Venous Doppler reviewed 2. Recommend anticoagulation if not contraindicated after surgery 3. May need to consider IVC filter placement unable to tolerate anticoagulation due to hematuria 4. Further recommendations to follow Thank you for this consultation, we will continue to follow next The impression and plan of care has been dictated as directed. Dr. Cruz I performed a history and examination of this patient, discussed the same with the dictator. I agree with the dictator's note ,documented as a scribe. Any additional findings or plans will be noted.
[2020-09-23] MEDS: INSULIN DETEMIR (LEVEMIR) 100 UNIT/ML SYR SQ SCH ×2 (13:14→17:36)
[2020-09-23] MEDS ORDERED: ONDANSETRON 4 MG/2 ML VIAL IVP ONE (13:14)
[2020-09-23] MEDS ORDERED: LACTATED RINGERS 1,000 ML IV ONE (13:14)
[2020-09-23] MEDS ORDERED: DEXAMETHASONE SOD PHOSPHATE 4 MG/ML 1 ML VIAL IV ONE (13:14)
[2020-09-23 13:16] LABS: Glucose,Whole Blood 157 mg/dL (75-99)
[2020-09-23] MEDS ORDERED: PROPOFOL 10 MG/ML 20 ML VIAL IV ONE (13:56)
[2020-09-23] MEDS ORDERED: MIDAZOLAM 2 MG/2 ML VIAL ONE (13:56)
[2020-09-23] MEDS ORDERED: ePHEDrine SULFATE/0.9% NACL/PF 50 MG/5 ML SYRINGE IV ONE (13:56)
[2020-09-23] MEDS ORDERED: fentaNYL (PF) 50 MCG/ML 2 ML AMP ONE (13:56)
[2020-09-23] MEDS ORDERED: PHENYLEPHRINE-0.9% NACL SYG 1,000 MCG/10 ML SYRINGE ONE (13:56)
--- NOTE | 2020-09-23 15:02 | P.OP ---
Date of Procedure: 09/23/20 Preoperative Diagnosis: Gross hematuria with clot urinary retention history of bladder cancer Postoperative Diagnosis: Gross hematuria, clot retention, tumor bleeding at bladder neck prostate versus bladder. Procedure(s) Performed: Cystoscopy transurethral resection of tumor bladder neck, meduium Anesthesia: spinal Surgeon: Efra Deshpande Estimated Blood Loss (ml): 25 Pathology: other Condition: stable (Tumor at bladder neck) Disposition: PACU Indications for Procedure: The patient is 80. He has a history of superficial bladder cancer treated by in the past. Gross hematuria with clot retention. He has an irregular prostate. He comes for evacuation of clot and resection of bleeding tumor Description of Procedure: The patient is brought to the operating suite. He is given a spinal anesthetic. He's placed lithotomy position with sterile prep and drape. He has significant phimosis. I cannot retract the foreskin. I'm able to manipulate the 25-Macedonian sheath direct vision obturator and Foroblique lens into the bladder. I first evacuate clot out of the bladder with Ellik evacuator. Then inspect the bladder and the majority of the bladder is normal. There is some irregular necrotic- looking tissue extending on the bladder neck from about 7:[address] to around 2:00. It appears more like prostate cancer than it does bladder cancer. I resect all the visual irregular tumor. I freed the bladder of tumor with Ellik evacuator. I reinspect and control any bleeding with electrocautery. The tumor size is at least 3-4 cm in surface area. At the end of the procedure the resectoscope was removed. Introduce an 18-Macedonian Posada catheter 5 mL balloon with clear urine return. The patient's awake and returned recovery room good condition. The tissue sent to pathology Rectal examination does identify a firm left-sided prostate Impression tumor bladder neck prostate versus bladder. Pending pathologist final recommendations.
[2020-09-23 15:20] LABS: Glucose,Whole Blood 158 mg/dL (75-99)
[2020-09-23 17:43] LABS: Glucose,Whole Blood 189 mg/dL (75-99)
--- NOTE | 2020-09-23 18:02 | P.PN ---
Progress Note - Text Progress Note Date: 09/23/20 Presenting complaint: Bloody urine Hospital course 80-year-old man with medical history of kidney stones and bladder cancer, hypertension/hyperlipidemia/diabetes type 2/CAD presented for bloody urine. Patient said that starting yesterday he noticed that he started to have blood clots in his urine. Then he started to develop severe pain with urination as if he was trying to urinate a large kidney stone. The pain comes in cycles and feels accommodation of sharp with spasms. He took 2 extra strength Tylenol yesterday around 11 was able to sleep for proximally 4 hours before being woken up by the pain. is at bedside, notes that patient has been passing very thick, large blood clots. Patient denies fevers, chills, nausea, vomiting, chest pain, syncope, presyncope, dyspnea, cough, abdominal pain, diarrhea, constipation. Reports dysuria and hematuria. Denies melena/hematochezia. Denies numbness/weakness of extremities. Patient also has venous insufficiency and has had increasing swelling of his right lower extremity. Patient is not on any blood thinners at home. Patient has history of bladder cancer treated with resection by Dr. Marylou Bowser 3 years ago. Placed on BCG intravesical therapy. A follow-up cystoscopy r showed a small recurrence-that was removed. Computed tomography scan of the abdomen/pelvis demonstrated moderate right- sided hydrouretero nephrosis, left-sided hydronephrosis which is mild. There is also concern on imaging for an obstructive basket the UVJ. Ultrasound has confirmed right below-knee DVT Today: Saw the patient this morning. Pending surgery. Had consulted vascular Dr. Posada. Discussed with the team. No indication for IVC filter given that is a below-knee blood clot. Late in the afternoon patient did code on for tumor resection of the bladder. Review of systems: Was done for constitutional, cardiovascular, GI, pulmonary. relevant finding as above Active Medications Acetaminophen (Acetaminophen Tab 325 Mg Tab) 650 mg PO Q6HR PRN PRN Reason: Mild Pain or Fever > 100.5 Atorvastatin Calcium (Atorvastatin 40 Mg Tab) 40 mg PO DAILY ARIANNE Last Admin: 09/23/20 09:53 Dose: 40 mg Documented by: Bisacodyl (Bisacodyl 5 Mg Jazmine.) 5 mg PO DAILY PRN PRN Reason: Constipation Carvedilol (Carvedilol 12.5 Mg Tab) 12.5 mg PO BID-W/MEALS [facility] Last Admin: 09/23/20 09:56 Dose: 12.5 mg Documented by: Cholecalciferol (Cholecalciferol 25 Mcg (1000 Iu) Tablet) 125 mcg PO DAILY [facility] Last Admin: 09/23/20 09:53 Dose: 125 mcg Documented by: Cyanocobalamin (Cyanocobalamin 500 Mcg Tab) 1,000 mcg PO DAILY [facility] Last Admin: 09/23/20 09:56 Dose: 1,000 mcg Documented by: Docusate Sodium (Docusate 100 Mg Cap) 100 mg PO BID PRN PRN Reason: Constipation Insulin Aspart (Insulin Aspart (Novolog) 100 Unit/Ml Vial) 5 unit SQ AC-SUPPER [facility] Last Admin: 09/22/20 18:05 Dose: 5 unit Documented by: Insulin Aspart (Insulin Aspart (Novolog) 100 Unit/Ml Vial) 8 unit SQ AC-LUNCH [facility] Last Admin: 09/23/20 13:14 Dose: Not Given Documented by: Insulin Aspart (Insulin Aspart (Novolog) 100 Unit/Ml Vial) 10 unit SQ AC-BRKFST [facility] Last Admin: 09/23/20 07:36 Dose: Not Given Documented by: Insulin Aspart (Insulin Aspart (Novolog) 100 Unit/Ml Vial) 0 unit SQ [facility]; Protocol Last Admin: 09/23/20 13:14 Dose: Not Given Documented by: Insulin Detemir (Insulin Detemir (Levemir) 100 Unit/Ml Syr) 14 unit SQ AC- BID@1200,1600 [facility] Last Admin: 09/23/20 17:36 Dose: Not Given Documented by: Morphine Sulfate (Morphine Sulfate 4 Mg/Ml Syringe) 4 mg IV Q4HR PRN PRN Reason: Severe Pain Last Admin: 09/22/20 02:29 Dose: 4 mg Documented by: Naloxone HCl (Naloxone 0.4 Mg/Ml 1 Ml Vial) 0.2 mg IV Q2M PRN PRN Reason: Opioid Reversal Ondansetron HCl (Ondansetron 4 Mg/2 Ml Vial) 4 mg IVP Q8HR PRN PRN Reason: Nausea And Vomiting On examination: VITAL SIGNS: 96.3, 64, 16, 110 x 60, 97% room air GENERAL APPEARANCE: BMI 33.6, sitting up in a chair, tired. HEENT: Normal external appearance of nose and ear. Oral cavity normal. Hard of hearing EYES: Pupils equal. Conjunctiva normal. NECK: JVD not raised. Mass not palpable. RESPIRATORY: Respiratory effort normal. Lungs decreased breath sounds CARDIOVASCULAR: First and second sounds normal. No edema. ABDOMEN: Soft. Liver and spleen not palpable. No tenderness. No mass palpable. Posada catheter PSYCHIATRY: Alert and oriented x3. Mood and affect normal. INVESTIGATIONS, reviewed in the clinical context: September 23: WBC 8.8 hemoglobin 8.3 platelets 167 WBC 8.3 hemoglobin 8.6 platelets 160 Assessment and plan: -Likely recurrence of bladder tumor/cancer Patient had prior bladder cancer resection by Dr. Santiago with 3 years ago and was treated with BCG. September 23: Bladder tumor resected by Dr. Reyna -Acute DVT in the right leg, below the knee Patient seen by vascular surgery Dr. Posada. Not for IVC filter. Given that is below the knee and these do not normally do not travel to the lung. Discussed with Dr. Reyna-hold any anticoagulation for at least 48 hours. -Diabetes mellitus type 2, on oral hypoglycemic Follow Accu-Cheks -AICD -Primary osteoarthritis -Coronary artery disease with prior ND Continue with Coreg -Hyperlipidemia Continue with Lipitor -Essential hypertension On Cozaar and beta gabriele -Acute blood loss anemia from severe recurrent hematuria from bladder tumor Follow H&H Follow H&H. Follow right thigh clinically. Homar wrap. If no hematuria consider starting anticoagulation in 48 hours. Special in the setting of underlying malignancy chances to progress a significant period. Total time spent today about 40 minutes with over 25 minutes of discussion.
[2020-09-23 20:05] LABS: Glucose,Whole Blood 269 mg/dL (75-99)
[2020-09-24 07:02] LABS: Glucose,Whole Blood 174 mg/dL (75-99)
[2020-09-24 07:32] LABS: Anisocytosis Slight; HCT 30.6 % (39.0-53.0); HGB 8.9 gm/dL (13.0-17.5); Hypochromasia Marked; MCH 24.3 pg (25.0-35.0); MCHC 29.1 g/dL (31.0-37.0); MCV 83.7 fL (80.0-100.0); Mean Platelet Volume 7.8; Platelet Count 238 k/uL (150-450); RBC 3.65 m/uL (4.30-5.90); RDW 17.3 % (11.5-15.5); WBC 16.2 k/uL (3.8-10.6)
[2020-09-24] MEDS: INSULIN ASPART (NovoLOG) 100 UNIT/ML VIAL SQ SCH ×7 (08:12→19:53)
[2020-09-24] MEDS: CYANOCOBALAMIN 500 MCG TAB PO SCH (08:12)
[2020-09-24] MEDS: CHOLECALCIFEROL 25 MCG (1000 IU) TABLET PO SCH (08:12)
[2020-09-24] MEDS: carvediloL 12.5 MG TAB PO SCH ×2 (08:12→17:08)
[2020-09-24] MEDS: ATORVASTATIN 40 MG TAB PO SCH (08:12)
[2020-09-24] MEDS ORDERED: SODIUM CHLORIDE 0.9% 500 ML 500 ML IV ONE (08:40)
--- NOTE | 2020-09-24 08:57 | XR ---
EXAMINATION TYPE: XR chest 1V portable DATE OF EXAM: 09/24/2020 CLINICAL HISTORY: Shortness of breath TECHNIQUE: Single portable frontal view of the chest is obtained. COMPARISON: None FINDINGS: Reticular interstitial changes bilaterally. There is no focal air space opacity, pleural ef fusion, or pneumothorax seen. The cardiac silhouette size is mildly enlarged with single lead pacema ker/defibrillator. The osseous structures are somewhat demineralized with degenerative change bilat eral shoulders. IMPRESSION: Mild cardiomegaly and chronic parenchymal changes bilaterally without acute pulmonary pro cess.
[2020-09-24] MEDS ORDERED: CIPROFLOXACIN HCL 500 MG TAB PO SCH (09:00)
[2020-09-24] MEDS: ACETAMINOPHEN TAB 325 MG TAB PO PRN ×2 (09:03→23:08)
[2020-09-24] MEDS: SODIUM CHLORIDE 0.9% 1,000 ML IV SCH ×2 (09:04→12:56)
--- NOTE | 2020-09-24 10:45 | P.CNPUL ---
History of Present Illness Consult date: 09/24/20 Reason for consult: dyspnea, hypoxemia Chief complaint: Shortness of breath, febrile, hypertension History of present illness: This is a pleasant 80-year-old male who was seen eval reexamined on medical floor due to drop in blood pressure and a spiking fever, noted that patient has a cystoscopy and transurethral resection of tumor bladder neck medium, due to gross hematuria and urinary retention with history of bladder cancer, postop day #1, patient spiked fever and dropped his blood pressure currently getting fluid boluses as per order just receive a dose of Cipro, urine culture were positive for Pseudomonas in urine on 09/21, patient has a Posada's catheter,, patient just have a CBC done with white cell count up to 16,200, hemoglobin 8.9 lactic acid went up to 6.8, patient is awake but appear pale, his past medical history significant for renal calculi, bladder cancer, hypertension hypertensive cardiovascular disease, type 2 diabetes mellitus, dyslipidemia he has a bilateral knee replacement also noted swelling of the left lower extremity significantly bigger than the right patient feels that he had it for significant period time Review of Systems All systems: negative Past Medical History Past Medical History: Cancer, Diabetes Mellitus, Eye Disorder, Myocardial Infarction (HI) Additional Past Medical History / Comment(s): recent tx of infected cracked tooth.SEE DR SANCHEZ'S H&P, RT EYE ANEURYSM, HX OF BLADDER CA-CHEMO TX 2015 Last Myocardial Infarction Date:: 2005 History of Any Multi-Drug Resistant Organisms: None Reported Past Surgical History: AICD, Appendectomy, Heart Catheterization, Joint Replacement, Orthopedic Surgery Additional Past Surgical History / Comment(s): LEON KNEE ARTHROSCOPIES, LEON KNEE REPLACEMENTS, BLADDER TUMOR REMOVED, DEFIB TESTING, EP STUDY Past Anesthesia/Blood Transfusion Reactions: No Reported Reaction Additional Past Anesthesia/Blood Transfusion Reaction / Comment(s): no hx blood transfusion Type of Cardiac Device: AICD Device Placement Date:: 2011 [employer] Past Psychological History: No Psychological Hx Reported Smoking Status: Former smoker Past Alcohol Use History: None Reported Additional Past Alcohol Use History / Comment(s): STARTED SMOKING 1967, QUIT 1986 1PPD Past Drug Use History: None Reported - Past Family History Mother Family Medical History: No Reported History Father Family Medical History: Congestive Heart Failure (CHF) Medications and Allergies Home Medications Medication Instructions Recorded Confirmed Type Aspirin 81 mg PO DAILY 08/31/14 09/21/20 History Atorvastatin [Lipitor] 40 mg PO DAILY 08/31/14 09/21/20 History Carvedilol [Coreg] 12.5 mg PO BID 08/31/14 09/21/20 History Furosemide 20 mg PO DAILY 08/31/14 09/21/20 History Insulin Glargine,Hum.rec.anlog 14 unit SQ AC-BID@1200,1600 08/31/14 09/21/20 History [Lantus Solostar] Insulin Lispro [humaLOG Kwikpen] 10 unit SQ AC-BRKFST 08/31/14 09/21/20 History Potassium Chloride [Klor-Con 10] 10 meq PO BID 08/31/14 09/21/20 History metFORMIN HCL 1,000 mg PO BID 08/31/14 09/21/20 History Cholecalciferol [Vitamin D3 (25 125 mcg PO DAILY 08/11/16 09/21/20 History Mcg = 1000 Iu)] Cyanocobalamin (Vitamin B-12) 1,000 mcg PO DAILY 08/11/16 09/21/20 History [Vitamin B-12] Insulin Lispro [humaLOG Kwikpen] 8 unit SQ AC-LUNCH 08/11/16 09/21/20 History Losartan [Cozaar] 25 mg PO DAILY 07/18/18 09/21/20 History Insulin Lispro [humaLOG Kwikpen] 5 unit SQ AC-SUPPER 09/21/20 09/21/20 History Allergies Allergy/AdvReac Type Severity Reaction Status Date / Time atenolol [From Tenormin] Allergy Swelling. Verified 09/21/20 14:34 REDNESS OF SKIN benazepril HCl Allergy Swelling. Verified 09/21/20 14:34 [From Lotensin] REDNESS OF SKIN Penicillins Allergy Swelling. Verified 09/21/20 14:34 REDNESS SKIN tetracycline Allergy Swelling.REDNESS Verified 09/21/20 14:34 OF SKIN Physical Exam Vitals: Vital Signs Temp Pulse Pulse Pulse Resp BP BP 09/24/20 09:43 97.9 F 95 84/49 09/24/20 08:24 101.4 F H 95 19 96/53 09/24/20 08:00 113 H 09/24/20 06:33 98.0 F 86 24 114/64 09/24/20 05:00 98.1 F 57 L 18 09/23/20 20:11 97.5 F L 96 18 114/65 09/23/20 20:00 96 18 09/23/20 18:15 77 14 122/66 09/23/20 17:05 67 09/23/20 16:50 73 09/23/20 16:35 96.3 F L 64 16 09/23/20 15:45 68 16 09/23/20 15:30 74 16 09/23/20 15:13 76 16 09/23/20 14:58 97.6 F 88 20 09/23/20 12:27 97.2 F L 83 95 18 99/54 09/23/20 11:28 97.9 F 77 16 111/51 BP Pulse Ox 09/24/20 09:43 98 09/24/20 08:24 96 09/24/20 08:00 09/24/20 06:33 96 09/24/20 05:00 125/74 93 L 09/23/20 20:11 97 09/23/20 20:00 09/23/20 18:15 98 09/23/20 17:05 103/67 96 09/23/20 16:50 112/59 93 L 09/23/20 16:35 110/60 97 09/23/20 15:45 107/53 97 09/23/20 15:30 102/54 96 09/23/20 15:13 95/50 95 09/23/20 14:58 93/51 97 09/23/20 12:27 95 09/23/20 11:28 Intake and Output 09/23/20 09/24/20 09/24/20 22:59 06:59 14:59 Intake Total 250 600 Output Total 650 Balance 250 -50 Intake: IV 250 0.9 150 Oral 600 Output: Urine 650 Uretheral (Posada) 650 Other: Voiding Method Indwelling Catheter Indwelling Catheter - Constitutional General appearance: cooperative, disheveled, mild distress, morbidly obese - EENT Eyes: EOMI, PERRLA Ears: bilateral: normal - Neck Neck: normal ROM Carotids: bilateral: upstroke normal Thyroid: bilateral: normal size - Respiratory Respiratory: bilateral: diminished - Cardiovascular Rhythm: regular Heart sounds: normal: S1, S2 - Gastrointestinal General gastrointestinal: decreased bowel sounds, distended, soft - Integumentary Bilateral lower extremity swelling left more than the right Integumentary: normal turgor - Neurologic Neurologic: CNII-XII intact - Musculoskeletal Musculoskeletal: gait normal, generalized weakness, strength equal bilaterally - Psychiatric Psychiatric: A&O x's 3, appropriate affect, intact judgment & insight Results - Laboratory Findings CBC and BMP: 09/24/20 06:31 09/21/20 17:17 PT/INR, D-dimer PT 11.0 sec (9.0-12.0) 09/22/20 03:21 INR 1.0 (<1.2) 09/22/20 03:21 Abnormal lab findings: Abnormal Labs 09/21/20 09/21/20 09/21/20 13:04 13:04 13:04 WBC RBC 3.95 L Hgb 9.9 L Hct 31.0 L MCV 78.6 L MCH MCHC RDW 17.2 H Neutrophils # 7.8 H APTT 21.3 L Sodium Chloride BUN Creatinine Glucose POC Glucose (mg/dL) Plasma Lactic Acid Daren Urine RBC >182 H Urine WBC >182 H Ur Squamous Epith Cells 26 H 09/21/20 09/21/20 09/21/20 13:04 14:29 17:17 WBC RBC Hgb Hct MCV MCH MCHC RDW Neutrophils # APTT Sodium 135 L 133 L Chloride 97 L BUN 26 H 25 H Creatinine 1.40 H 1.29 H Glucose 112 H 167 H POC Glucose (mg/dL) 115 H Plasma Lactic Acid Daren Urine RBC Urine WBC Ur Squamous Epith Cells 09/22/20 09/22/20 09/22/20 00:15 03:21 06:11 WBC RBC 3.44 L Hgb 8.7 L Hct 27.0 L MCV 78.6 L MCH MCHC RDW 17.4 H Neutrophils # APTT Sodium Chloride BUN Creatinine Glucose POC Glucose (mg/dL) 117 H 136 H Plasma Lactic Acid Daren Urine RBC Urine WBC Ur Squamous Epith Cells 09/22/20 09/22/20 09/22/20 07:38 12:01 14:35 WBC RBC 3.41 L Hgb 8.6 L Hct 27.5 L MCV MCH MCHC RDW 17.4 H Neutrophils # APTT Sodium Chloride BUN Creatinine Glucose POC Glucose (mg/dL) 150 H 148 H Plasma Lactic Acid Daren Urine RBC Urine WBC Ur Squamous Epith Cells 09/22/20 09/22/20 09/23/20 17:11 21:01 06:10 WBC RBC 3.25 L Hgb 8.3 L Hct 25.8 L MCV 79.3 L MCH MCHC RDW 17.4 H Neutrophils # APTT Sodium Chloride BUN Creatinine Glucose POC Glucose (mg/dL) 188 H 198 H Plasma Lactic Acid Daren Urine RBC Urine WBC Ur Squamous Epith Cells 09/23/20 09/23/20 09/23/20 07:05 12:06 12:54 WBC RBC Hgb Hct MCV MCH MCHC RDW Neutrophils # APTT Sodium Chloride BUN Creatinine Glucose POC Glucose (mg/dL) 141 H 138 H 157 H Plasma Lactic Acid Daren Urine RBC Urine WBC Ur Squamous Epith Cells 09/23/20 09/23/20 09/23/20 15:19 17:36 20:04 WBC RBC Hgb Hct MCV MCH MCHC RDW Neutrophils # APTT Sodium Chloride BUN Creatinine Glucose POC Glucose (mg/dL) 158 H 189 H 269 H Plasma Lactic Acid Daren Urine RBC Urine WBC Ur Squamous Epith Cells 09/24/20 09/24/20 09/24/20 06:31 06:31 07:01 WBC 16.2 H RBC 3.65 L Hgb 8.9 L Hct 30.6 L MCV MCH 24.3 L MCHC 29.1 L RDW 17.3 H Neutrophils # APTT Sodium Chloride BUN Creatinine Glucose POC Glucose (mg/dL) 174 H Plasma Lactic Acid Daren 6.8 H* Urine RBC Urine WBC Ur Squamous Epith Cells - Diagnostic Findings Chest x-ray: report reviewed, image reviewed Assessment and Plan Assessment: Sepsis source likely urinary tract/genitourinary Hypotension Lactic acidosis UTI Bilateral lower extremity swelling left more than the right Pseudomonas in the urine Type 2 diabetes mellitus Hypertension hypertensive cardiovascular disease Plan: IV fluid boluses will start with 500 mg bolus followed by 250 mL an hour per hour for 4 hours normal saline, then 100 mL an hour Noted another follow-up CBC ordered for later on today Broaden the spectrum of IV antibiotics we will add IV Rocephin, noted ALLERGY to penicillin was remote and appeared to be nonspecific Garcia culture including urine and blood Repeat labs including CBC later on along with chemistry Duplex ultrasound the lower extremity After fluid boluses if patient lactic acid remains high not trending downwards or blood pressure remains low we'll transfer to [facility] Further plan of care as per clinical response of the patient Time with Patient: Greater than 30
--- NOTE | 2020-09-24 11:27 | P.PN ---
Subjective Progress Note Date: 09/24/20 POD # 1 S/P TURBT. This am patient is tachycardic, febrile at 101. Urine is clear. Denies any abdominal pain urine culture grown Pseudomonas Objective - Vital Signs Vital signs: Vital Signs Temp 97.9 F 09/24/20 09:43 Pulse 99 09/24/20 10:49 Resp 19 09/24/20 08:24 BP 78/47 09/24/20 10:49 Pulse Ox 95 09/24/20 10:49 Intake & Output 09/23/20 09/24/20 09/24/20 18:59 06:59 18:59 Intake Total 1350 600 Output Total 410 650 Balance 940 -50 Intake: IV 1350 0.9 150 Oral 600 Output: Urine 400 650 Uretheral (Posada) 650 Estimated Blood Loss 10 Other: Voiding Method Indwelling Catheter Indwelling Catheter Indwelling Catheter - Gastrointestinal General gastrointestinal: Present: soft, tenderness (mild lower quadrant ). Absent: distended - Genitourinary Genitourinary Comment(s): urine light red, no clots - Labs CBC & Chem 7: 09/24/20 06:31 09/21/20 17:17 Labs: Abnormal Lab Results - Last 24 Hours (Table) 09/23/20 09/23/20 09/23/20 Range/Units 12:06 12:54 15:19 WBC (3.8-10.6) k/uL RBC (4.30-5.90) m/uL Hgb (13.0-17.5) gm/dL Hct (39.0-53.0) % MCH (25.0-35.0) pg MCHC (31.0-37.0) g/dL RDW (11.5-15.5) % POC Glucose (mg/dL) 138 H 157 H 158 H (75-99) mg/dL Plasma Lactic Acid Daren (0.7-2.0) mmol/L 09/23/20 09/23/20 09/24/20 Range/Units 17:36 20:04 06:31 WBC 16.2 H (3.8-10.6) k/uL RBC 3.65 L (4.30-5.90) m/uL Hgb 8.9 L (13.0-17.5) gm/dL Hct 30.6 L (39.0-53.0) % MCH 24.3 L (25.0-35.0) pg MCHC 29.1 L (31.0-37.0) g/dL RDW 17.3 H (11.5-15.5) % POC Glucose (mg/dL) 189 H 269 H (75-99) mg/dL Plasma Lactic Acid Daren (0.7-2.0) mmol/L 09/24/20 09/24/20 Range/Units 06:31 07:01 WBC (3.8-10.6) k/uL RBC (4.30-5.90) m/uL Hgb (13.0-17.5) gm/dL Hct (39.0-53.0) % MCH (25.0-35.0) pg MCHC (31.0-37.0) g/dL RDW (11.5-15.5) % POC Glucose (mg/dL) 174 H (75-99) mg/dL Plasma Lactic Acid Daren 6.8 H* (0.7-2.0) mmol/L Microbiology - Last 24 Hours (Table) 09/21/20 13:04 Urine Culture - Final Urine,Voided Pseudomonas aeruginosa Assessment and Plan Assessment: 80 yo male POD #1 S/P TURBT, patient febrile and tachycradic this morning. Urine culture growing Pseudomonas -Will start levofloxacin -Keep Posada in place -Pulmonalogy is on board for his sepsis
[2020-09-24 11:34] LABS: Glucose,Whole Blood 121 mg/dL (75-99)
[2020-09-24 12:04] LABS: African American GFR (CKD) 47 (>60 ml/min/1.73 sqM); Anion Gap 10 mmol/L; Blood Urea Nitrogen 24 mg/dL (9-20); Calcium 8.4 mg/dL (8.4-10.2); Carbon Dioxide 20 mmol/L (22-30); Chloride 105 mmol/L (98-107); Glucose 101 mg/dL (74-99); Non-African American GFR(CKD) 41 (>60 ml/min/1.73 sqM); Potassium 3.8 mmol/L (3.5-5.1); Sodium 135 mmol/L (137-145)
[2020-09-24] MEDS: LEVOFLOXACIN 500MG-D5W PMX 500 MG in DEXTROSE/WATER 1 100ML.BAG IVPB SCH (12:46)
[2020-09-24] MEDS: INSULIN DETEMIR (LEVEMIR) 100 UNIT/ML SYR SQ SCH ×3 (12:46→19:52)
--- NOTE | 2020-09-24 12:58 | US ---
EXAMINATION TYPE: US venous doppler duplex LE DATE OF EXAM: 09/24/2020 12:19 PM COMPARISON: NONE CLINICAL HISTORY: evaluate for DVT. Known right leg dvt, assess both today SIDE PERFORMED: Bilateral TECHNIQUE: The lower extremity deep venous system is examined utilizing real time linear array sonog stef with graded compression, doppler sonography and color-flow sonography. VESSELS IMAGED: Common Femoral Vein Deep Femoral Vein Greater Saphenous Vein * Femoral Vein Popliteal Vein Small Saphenous Vein * Proximal Calf Veins (* superficial vessels) Right Leg: Persistent thrombus within popiteal vein, with internal echoes that are not fully samantha sible, some minimal flow seen so not occlusive. Left Leg: Negative for DVT IMPRESSION: 1. Persistent deep venous thrombosis in the right popliteal vein. 2. No evidence of deep venous thrombosis in the left lower extremity veins.
[2020-09-24 13:14] LABS: Anisocytosis Slight; HCT 21.3 % (39.0-53.0); Hypochromasia Marked; MCH 24.6 pg (25.0-35.0); MCHC 30.7 g/dL (31.0-37.0); MCV 80.2 fL (80.0-100.0); Mean Platelet Volume 7.2; Microcytosis Slight; Platelet Count 124 k/uL (150-450); RBC 2.66 m/uL (4.30-5.90); RDW 17.7 % (11.5-15.5); WBC 11.9 k/uL (3.8-10.6)
[2020-09-24 13:35] LABS: HGB 6.5 gm/dL (13.0-17.5)
--- NOTE | 2020-09-24 16:33 | P.PN ---
Progress Note - Text Progress Note Date: 09/24/20 Critical care note: Presenting complaint: Low blood pressure Hospital course 80-year-old man with medical history of kidney stones and bladder cancer, hypertension/hyperlipidemia/diabetes type 2/CAD presented for bloody urine. Patient said that starting yesterday he noticed that he started to have blood clots in his urine. Then he started to develop severe pain with urination as if he was trying to urinate a large kidney stone. The pain comes in cycles and feels accommodation of sharp with spasms. He took 2 extra strength Tylenol yesterday around 11 was able to sleep for proximally 4 hours before being woken up by the pain. is at bedside, notes that patient has been passing very thick, large blood clots. Patient denies fevers, chills, nausea, vomiting, chest pain, syncope, presyncope, dyspnea, cough, abdominal pain, diarrhea, constipation. Reports dysuria and hematuria. Denies melena/hematochezia. Denies numbness/weakness of extremities. Patient also has venous insufficiency and has had increasing swelling of his right lower extremity. Patient is not on any blood thinners at home. Patient has history of bladder cancer treated with resection by Dr. Marylou Bowser 3 years ago. Placed on BCG intravesical therapy. A follow-up cystoscopy r showed a small recurrence-that was removed. Computed tomography scan of the abdomen/pelvis demonstrated moderate right- sided hydrouretero nephrosis, left-sided hydronephrosis which is mild. There is also concern on imaging for an obstructive basket the UVJ. Ultrasound has confirmed right below-knee DVT. September 23: Bladder tumor resected. Today: Today morning patient became hypotensive. Was tachycardic. Fluid bolus was ordered. Initially given 500 mL. Followed by: 250 bolus. Patient felt a bit tired. Posada catheter in place. Patient be moved to the cardiology floor. Stat repeat CBC was ordered. Spoke to the nurse and the charge nurse. Had a fever over 101.4 this morning. Review of systems: Was done for constitutional, cardiovascular, GI, pulmonary. relevant finding as above Active Medications Acetaminophen (Acetaminophen Tab 325 Mg Tab) 650 mg PO Q6HR PRN PRN Reason: Mild Pain or Fever > 100.5 Last Admin: 09/24/20 09:03 Dose: 650 mg Documented by: Atorvastatin Calcium (Atorvastatin 40 Mg Tab) 40 mg PO DAILY [facility] Last Admin: 09/24/20 08:12 Dose: 40 mg Documented by: Bisacodyl (Bisacodyl 5 Mg Tablet.Dr) 5 mg PO DAILY PRN PRN Reason: Constipation Carvedilol (Carvedilol 12.5 Mg Tab) 12.5 mg PO BID-W/MEALS [facility] Last Admin: 09/24/20 08:12 Dose: 12.5 mg Documented by: Cholecalciferol (Cholecalciferol 25 Mcg (1000 Iu) Tablet) 125 mcg PO DAILY [facility] Last Admin: 09/24/20 08:12 Dose: 125 mcg Documented by: Cyanocobalamin (Cyanocobalamin 500 Mcg Tab) 1,000 mcg PO DAILY [facility] Last Admin: 09/24/20 08:12 Dose: 1,000 mcg Documented by: Docusate Sodium (Docusate 100 Mg Cap) 100 mg PO BID PRN PRN Reason: Constipation Last Admin: 09/24/20 04:20 Dose: 100 mg Documented by: Levofloxacin 500 mg/ IV (Solution) 100 mls @ 100 mls/hr IVPB Q24H [facility] Last Admin: 09/24/20 12:46 Dose: 100 mls/hr Documented by: Insulin Aspart (Insulin Aspart (Novolog) 100 Unit/Ml Vial) 5 unit SQ AC-SUPPER [facility] Last Admin: 09/23/20 18:29 Dose: 5 unit Documented by: Insulin Aspart (Insulin Aspart (Novolog) 100 Unit/Ml Vial) 8 unit SQ AC-LUNCH [facility] Last Admin: 09/24/20 11:58 Dose: Not Given Documented by: Insulin Aspart (Insulin Aspart (Novolog) 100 Unit/Ml Vial) 10 unit SQ AC-BRKFST [facility] Last Admin: 09/24/20 08:12 Dose: 10 unit Documented by: Insulin Aspart (Insulin Aspart (Novolog) 100 Unit/Ml Vial) 0 unit SQ ACHS [facility]; Protocol Last Admin: 09/24/20 11:58 Dose: Not Given Documented by: Insulin Detemir (Insulin Detemir (Levemir) 100 Unit/Ml Syr) 14 unit SQ AC- BID@1200,1600 [facility] Last Admin: 09/24/20 12:46 Dose: 14 unit Documented by: Morphine Sulfate (Morphine Sulfate 4 Mg/Ml Syringe) 4 mg IV Q4HR PRN PRN Reason: Severe Pain Last Admin: 09/22/20 02:29 Dose: 4 mg Documented by: Naloxone HCl (Naloxone 0.4 Mg/Ml 1 Ml Vial) 0.2 mg IV Q2M PRN PRN Reason: Opioid Reversal Ondansetron HCl (Ondansetron 4 Mg/2 Ml Vial) 4 mg IVP Q8HR PRN PRN Reason: Nausea And Vomiting On examination: VITAL SIGNS: 101.4, 113, 19, 78/47, 95% on 2 L GENERAL APPEARANCE: Laying in bed, awake HEENT: Normal external appearance of nose and ear. Oral cavity normal. Hard of hearing EYES: Pupils equal. Conjunctiva pale NECK: JVD not raised. Mass not palpable. RESPIRATORY: Respiratory effort normal. Lungs decreased breath sounds CARDIOVASCULAR: First and second sounds normal. No edema. ABDOMEN: Soft. Liver and spleen not palpable. No tenderness. No mass palpable. Posada catheter -blood tinged urine PSYCHIATRY: Alert and oriented x3. Mood and affect normal. INVESTIGATIONS, reviewed in the clinical context: September 24: WBC 16.2 hemoglobin 8.9 platelets 238 lactic acid 6.8. Repeat hemoglobin 6.5 September 23: WBC 8.8 hemoglobin 8.3 platelets 167 WBC 8.3 hemoglobin 8.6 platelets 160 Assessment and plan: -Likely recurrence of bladder tumor/cancer prior bladder cancer resection by Dr. Santiago-3 years ago and was treated with BCG. September 23: Bladder tumor resected by Dr. Reyna -Acute DVT in the right leg, below the knee Patient seen by vascular surgery Dr. Posada. Not for IVC filter. Given that is below the knee and these do not normally do not travel to the lung. Discussed with Dr. Reyna-hold any anticoagulation for at least 48 hours. And until hematuria resolves -Diabetes mellitus type 2, on oral hypoglycemic, uncontrolled with hyperglycemia Follow Accu-Cheks -AICD -Primary osteoarthritis -Coronary artery disease with prior CO Continue with Coreg -Hyperlipidemia Continue with Lipitor -Essential hypertension On Cozaar and beta gabriele -Acute blood loss anemia from severe recurrent hematuria from bladder tumor Stat repeat hemoglobin today showed hemoglobin down to 6.5. Unit of blood was ordered. -Acute UTI with cystitis from Pseudomonas, causing sepsis shock IV Levaquin. Fluid bolus. Patient was admitted fluid boluses. IV Levaquin ordered. Stat CBC done. Unit of blood ordered . Discussed with the patient. Close vital sign monitoring. Patient be moved to the [facility] K telemetric unit. This is a critical care note. Total time spent was 1 hour 10 minutes.
[2020-09-24 17:00] LABS: Glucose,Whole Blood 182 mg/dL (75-99)
[2020-09-24 19:40] LABS: Glucose,Whole Blood 174 mg/dL (75-99)
[2020-09-24 21:57] LABS: Anisocytosis Slight; Basophils % (A) 0 %; Eosinophils # (A) 0.1 k/uL (0-0.7); Eosinophils % (A) 1 %; HCT 21.7 % (39.0-53.0); Hypochromasia Moderate; Lymphocytes # (A) 0.5 k/uL (1.0-4.8); Lymphocytes % (A) 5 %; MCH 25.3 pg (25.0-35.0); MCHC 32.1 g/dL (31.0-37.0); MCV 78.9 fL (80.0-100.0); Mean Platelet Volume 7.1; Microcytosis Slight; Monocytes # (A) 0.6 k/uL (0-1.0); Monocytes % (A) 6 %; Neutrophils # (A) 9.4 k/uL (1.3-7.7); Neutrophils % (A) 88 %; Platelet Count 116 k/uL (150-450); RBC 2.75 m/uL (4.30-5.90); WBC 10.7 k/uL (3.8-10.6)
[2020-09-24 22:23] LABS: ALT 25 U/L (4-49); AST 56 U/L (17-59); African American GFR (CKD) 40 (>60 ml/min/1.73 sqM); Albumin 2.9 g/dL (3.5-5.0); Albumin/Globulin Ratio 1.2; Alkaline Phosphatase 74 U/L (38-126); Anion Gap 5 mmol/L; Blood Urea Nitrogen 26 mg/dL (9-20); Calcium 8.3 mg/dL (8.4-10.2); Carbon Dioxide 24 mmol/L (22-30); Chloride 104 mmol/L (98-107); Globulin 2.4 g/dL; Glucose 147 mg/dL (74-99); Non-African American GFR(CKD) 35 (>60 ml/min/1.73 sqM); Potassium 4.8 mmol/L (3.5-5.1); Sodium 133 mmol/L (137-145); Total Bilirubin 0.8 mg/dL (0.2-1.3); Total Protein 5.3 g/dL (6.3-8.2)
[2020-09-24 22:32] LABS: HGB 6.9 gm/dL (13.0-17.5)
[2020-09-25] MEDS: carvediloL 12.5 MG TAB PO SCH ×2 (06:44→18:20)
[2020-09-25 06:46] LABS: Glucose,Whole Blood 162 mg/dL (75-99)
[2020-09-25] MEDS: INSULIN ASPART (NovoLOG) 100 UNIT/ML VIAL SQ SCH ×8 (07:08→20:15)
[2020-09-25] MEDS: CHOLECALCIFEROL 25 MCG (1000 IU) TABLET PO SCH (08:54)
[2020-09-25] MEDS: CYANOCOBALAMIN 500 MCG TAB PO SCH (08:54)
[2020-09-25] MEDS: ATORVASTATIN 40 MG TAB PO SCH (08:54)
[2020-09-25 10:14] LABS: Anisocytosis Slight; Basophils % (A) 0 %; Eosinophils # (A) 0.1 k/uL (0-0.7); Eosinophils % (A) 1 %; HCT 23.9 % (39.0-53.0); HGB 7.5 gm/dL (13.0-17.5); Hypochromasia Marked; Lymphocytes # (A) 0.5 k/uL (1.0-4.8); Lymphocytes % (A) 7 %; MCH 25.1 pg (25.0-35.0); MCHC 31.2 g/dL (31.0-37.0); MCV 80.6 fL (80.0-100.0); Mean Platelet Volume 9.5; Microcytosis Slight; Monocytes # (A) 0.6 k/uL (0-1.0); Monocytes % (A) 8 %; Neutrophils # (A) 6.1 k/uL (1.3-7.7); Neutrophils % (A) 83 %; Platelet Count 115 k/uL (150-450); Poikilocytosis Slight; RBC 2.97 m/uL (4.30-5.90); RDW 18.4 % (11.5-15.5); WBC 7.4 k/uL (3.8-10.6)
[2020-09-25 10:25] LABS: Albumin 2.8 g/dL (3.5-5.0); Potassium 4.4 mmol/L (3.5-5.1); Total Protein 5.2 g/dL (6.3-8.2)
[2020-09-25 10:26] LABS: Total Bilirubin 0.8 mg/dL (0.2-1.3)
--- NOTE | 2020-09-25 11:13 | P.PN ---
Subjective Progress Note Date: 09/25/20 Underwent a venous duplex history demonstrated evidence of a DVT, in the popliteal vein. Urine is blood tinged this a.m., with sentiments. Urine culture growing Pseudomonas, currently on levofloxacin. Receive 2 units of packed RBCs for hemoglobin of 6.5. Denies any abdominal pain Objective - Vital Signs Vital signs: Vital Signs Temp 99.9 F H 09/25/20 08:00 Pulse 80 09/25/20 08:00 Resp 16 09/25/20 08:00 BP 112/67 09/25/20 08:00 Pulse Ox 95 09/25/20 08:00 Intake & Output 09/24/20 09/25/20 09/25/20 18:59 06:59 18:59 Intake Total 516 310 118 Output Total 550 Balance 516 -240 118 Weight 121.5 kg Intake: Oral 240 118 Blood Product 276 310 Rc As-1 Unit 310 [id number] Rc Pheres Irrad As 3 276 Unit [id number] Output: Urine 550 Other: Voiding Method Indwelling Catheter Indwelling Catheter Indwelling Catheter - Constitutional General appearance: Present: no acute distress - Gastrointestinal General gastrointestinal: Present: soft. Absent: distended, tenderness - Genitourinary Genitourinary Comment(s): Posada draining blood-tinged urine, sediments - Psychiatric Psychiatric: Present: A&O x's 3 - Labs CBC & Chem 7: 09/25/20 09:59 09/25/20 09:59 Labs: Abnormal Lab Results - Last 24 Hours (Table) 09/23/20 09/24/20 09/24/20 Range/Units 13:20 11:11 11:11 WBC (3.8-10.6) k/uL RBC (4.30-5.90) m/uL Hgb (13.0-17.5) gm/dL Hct (39.0-53.0) % MCV (80.0-100.0) fL MCH (25.0-35.0) pg MCHC (31.0-37.0) g/dL RDW (11.5-15.5) % Plt Count (150-450) k/uL Neutrophils # (1.3-7.7) k/uL Lymphocytes # (1.0-4.8) k/uL Sodium 135 L (137-145) mmol/L Carbon Dioxide 20 L (22-30) mmol/L BUN 24 H (9-20) mg/dL Creatinine 1.60 H (0.66-1.25) mg/dL Glucose 101 H (74-99) mg/dL POC Glucose (mg/dL) (75-99) mg/dL Plasma Lactic Acid Daren 3.5 H* (0.7-2.0) mmol/L Calcium (8.4-10.2) mg/dL AST (17-59) U/L Total Protein (6.3-8.2) g/dL Albumin (3.5-5.0) g/dL Crossmatch See Detail 09/24/20 09/24/20 09/24/20 Range/Units 11:33 12:47 15:00 WBC 11.9 H (3.8-10.6) k/uL RBC 2.66 L (4.30-5.90) m/uL Hgb 6.5 L* D (13.0-17.5) gm/dL Hct 21.3 L (39.0-53.0) % MCV (80.0-100.0) fL MCH 24.6 L (25.0-35.0) pg MCHC 30.7 L (31.0-37.0) g/dL RDW 17.7 H (11.5-15.5) % Plt Count 124 L (150-450) k/uL Neutrophils # (1.3-7.7) k/uL Lymphocytes # (1.0-4.8) k/uL Sodium (137-145) mmol/L Carbon Dioxide (22-30) mmol/L BUN (9-20) mg/dL Creatinine (0.66-1.25) mg/dL Glucose (74-99) mg/dL POC Glucose (mg/dL) 121 H (75-99) mg/dL Plasma Lactic Acid Daren 2.5 H* (0.7-2.0) mmol/L Calcium (8.4-10.2) mg/dL AST (17-59) U/L Total Protein (6.3-8.2) g/dL Albumin (3.5-5.0) g/dL Crossmatch 09/24/20 09/24/20 09/24/20 Range/Units 16:57 19:38 21:27 WBC 10.7 H (3.8-10.6) k/uL RBC 2.75 L (4.30-5.90) m/uL Hgb 6.9 L* (13.0-17.5) gm/dL Hct 21.7 L (39.0-53.0) % MCV 78.9 L (80.0-100.0) fL MCH (25.0-35.0) pg MCHC (31.0-37.0) g/dL RDW 18.0 H (11.5-15.5) % Plt Count 116 L (150-450) k/uL Neutrophils # 9.4 H (1.3-7.7) k/uL Lymphocytes # 0.5 L (1.0-4.8) k/uL Sodium (137-145) mmol/L Carbon Dioxide (22-30) mmol/L BUN (9-20) mg/dL Creatinine (0.66-1.25) mg/dL Glucose (74-99) mg/dL POC Glucose (mg/dL) 182 H 174 H (75-99) mg/dL Plasma Lactic Acid Daren (0.7-2.0) mmol/L Calcium (8.4-10.2) mg/dL AST (17-59) U/L Total Protein (6.3-8.2) g/dL Albumin (3.5-5.0) g/dL Crossmatch 09/24/20 09/25/20 09/25/20 Range/Units 21:27 06:45 09:59 WBC (3.8-10.6) k/uL RBC (4.30-5.90) m/uL Hgb (13.0-17.5) gm/dL Hct (39.0-53.0) % MCV (80.0-100.0) fL MCH (25.0-35.0) pg MCHC (31.0-37.0) g/dL RDW (11.5-15.5) % Plt Count (150-450) k/uL Neutrophils # (1.3-7.7) k/uL Lymphocytes # (1.0-4.8) k/uL Sodium 133 L 133 L (137-145) mmol/L Carbon Dioxide (22-30) mmol/L BUN 26 H 28 H (9-20) mg/dL Creatinine 1.80 H 1.88 H (0.66-1.25) mg/dL Glucose 147 H 143 H (74-99) mg/dL POC Glucose (mg/dL) 162 H (75-99) mg/dL Plasma Lactic Acid Daren (0.7-2.0) mmol/L Calcium 8.3 L 8.0 L (8.4-10.2) mg/dL AST 84 H (17-59) U/L Total Protein 5.3 L 5.2 L (6.3-8.2) g/dL Albumin 2.9 L 2.8 L (3.5-5.0) g/dL Crossmatch 09/25/20 Range/Units 09:59 WBC (3.8-10.6) k/uL RBC 2.97 L (4.30-5.90) m/uL Hgb 7.5 L (13.0-17.5) gm/dL Hct 23.9 L (39.0-53.0) % MCV (80.0-100.0) fL MCH (25.0-35.0) pg MCHC (31.0-37.0) g/dL RDW 18.4 H (11.5-15.5) % Plt Count 115 L (150-450) k/uL Neutrophils # (1.3-7.7) k/uL Lymphocytes # 0.5 L (1.0-4.8) k/uL Sodium (137-145) mmol/L Carbon Dioxide (22-30) mmol/L BUN (9-20) mg/dL Creatinine (0.66-1.25) mg/dL Glucose (74-99) mg/dL POC Glucose (mg/dL) (75-99) mg/dL Plasma Lactic Acid Daren (0.7-2.0) mmol/L Calcium (8.4-10.2) mg/dL AST (17-59) U/L Total Protein (6.3-8.2) g/dL Albumin (3.5-5.0) g/dL Crossmatch Microbiology - Last 24 Hours (Table) 09/24/20 08:45 Urine Culture - Preliminary Urine,Catheterized Assessment and Plan Assessment: 80 yo male POD #2 S/P TURBT, patient became septic postoperatively. Urine culture growing Pseudomonas. Underwent a venous duplex that showed evidence of a right popliteal DVT -Continue levofloxacin -Keep Posada in place, irrigate PRN. Urine sediment is secondary to necrotic prostate -If urine is clear tomorrow can start anticoagulation
[2020-09-25 11:52] LABS: Glucose,Whole Blood 155 mg/dL (75-99)
--- NOTE | 2020-09-25 15:42 | P.PN ---
Subjective Progress Note Date: 09/25/20 Principal diagnosis: right popliteal DVT patient seen and examined. Doing well today. Denies pain in the right calf or behind the knee. He states his urine has been clearing up. He denies any fevers, chills, nausea, chest pain or shortness of breath. Objective - Vital Signs Vital signs: Vital Signs Temp 99.9 F H 09/25/20 08:00 Pulse 67 09/25/20 12:00 Resp 16 09/25/20 08:00 BP 105/59 09/25/20 12:00 Pulse Ox 97 09/25/20 12:00 Intake & Output 09/24/20 09/25/20 09/25/20 18:59 06:59 18:59 Intake Total 516 310 118 Output Total 550 Balance 516 -240 118 Weight 121.5 kg Intake: Oral 240 118 Blood Product 276 310 Rc As-1 Unit 310 [id number] Rc Pheres Irrad As 3 276 Unit [id number] Output: Urine 550 Other: Voiding Method Indwelling Catheter Indwelling Catheter Indwelling Catheter - Exam Alert and oriented 3. No acute distress Heart rate regular Lungs clear crackles Abdomen soft nondistended Extremities demonstrate bilateral lower extremity edema right greater than left. Negative tenderness to palpation in the right calf. Nonpalpable DP pulse. Multiphasic PT and DP signal Normal strength and sensation - Labs CBC & Chem 7: 09/25/20 09:59 09/25/20 09:59 Labs: Abnormal Lab Results - Last 24 Hours (Table) 09/23/20 09/24/20 09/24/20 Range/Units 13:20 15:00 16:57 WBC (3.8-10.6) k/uL RBC (4.30-5.90) m/uL Hgb (13.0-17.5) gm/dL Hct (39.0-53.0) % MCV (80.0-100.0) fL RDW (11.5-15.5) % Plt Count (150-450) k/uL Neutrophils # (1.3-7.7) k/uL Lymphocytes # (1.0-4.8) k/uL Sodium (137-145) mmol/L BUN (9-20) mg/dL Creatinine (0.66-1.25) mg/dL Glucose (74-99) mg/dL POC Glucose (mg/dL) 182 H (75-99) mg/dL Plasma Lactic Acid Daren 2.5 H* (0.7-2.0) mmol/L Calcium (8.4-10.2) mg/dL AST (17-59) U/L Total Protein (6.3-8.2) g/dL Albumin (3.5-5.0) g/dL Crossmatch See Detail 09/24/20 09/24/20 09/24/20 Range/Units 19:38 21:27 21:27 WBC 10.7 H (3.8-10.6) k/uL RBC 2.75 L (4.30-5.90) m/uL Hgb 6.9 L* (13.0-17.5) gm/dL Hct 21.7 L (39.0-53.0) % MCV 78.9 L (80.0-100.0) fL RDW 18.0 H (11.5-15.5) % Plt Count 116 L (150-450) k/uL Neutrophils # 9.4 H (1.3-7.7) k/uL Lymphocytes # 0.5 L (1.0-4.8) k/uL Sodium 133 L (137-145) mmol/L BUN 26 H (9-20) mg/dL Creatinine 1.80 H (0.66-1.25) mg/dL Glucose 147 H (74-99) mg/dL POC Glucose (mg/dL) 174 H (75-99) mg/dL Plasma Lactic Acid Daren (0.7-2.0) mmol/L Calcium 8.3 L (8.4-10.2) mg/dL AST (17-59) U/L Total Protein 5.3 L (6.3-8.2) g/dL Albumin 2.9 L (3.5-5.0) g/dL Crossmatch 09/25/20 09/25/20 09/25/20 Range/Units 06:45 09:59 09:59 WBC (3.8-10.6) k/uL RBC 2.97 L (4.30-5.90) m/uL Hgb 7.5 L (13.0-17.5) gm/dL Hct 23.9 L (39.0-53.0) % MCV (80.0-100.0) fL RDW 18.4 H (11.5-15.5) % Plt Count 115 L (150-450) k/uL Neutrophils # (1.3-7.7) k/uL Lymphocytes # 0.5 L (1.0-4.8) k/uL Sodium 133 L (137-145) mmol/L BUN 28 H (9-20) mg/dL Creatinine 1.88 H (0.66-1.25) mg/dL Glucose 143 H (74-99) mg/dL POC Glucose (mg/dL) 162 H (75-99) mg/dL Plasma Lactic Acid Daren (0.7-2.0) mmol/L Calcium 8.0 L (8.4-10.2) mg/dL AST 84 H (17-59) U/L Total Protein 5.2 L (6.3-8.2) g/dL Albumin 2.8 L (3.5-5.0) g/dL Crossmatch 09/25/20 Range/Units 11:40 WBC (3.8-10.6) k/uL RBC (4.30-5.90) m/uL Hgb (13.0-17.5) gm/dL Hct (39.0-53.0) % MCV (80.0-100.0) fL RDW (11.5-15.5) % Plt Count (150-450) k/uL Neutrophils # (1.3-7.7) k/uL Lymphocytes # (1.0-4.8) k/uL Sodium (137-145) mmol/L BUN (9-20) mg/dL Creatinine (0.66-1.25) mg/dL Glucose (74-99) mg/dL POC Glucose (mg/dL) 155 H (75-99) mg/dL Plasma Lactic Acid Daren (0.7-2.0) mmol/L Calcium (8.4-10.2) mg/dL AST (17-59) U/L Total Protein (6.3-8.2) g/dL Albumin (3.5-5.0) g/dL Crossmatch Microbiology - Last 24 Hours (Table) 09/24/20 08:45 Urine Culture - Preliminary Urine,Catheterized Gram Neg Bacilli Gram Neg Bacilli#2 09/24/20 09:06 Blood Culture - Preliminary Blood No Growth after 24 hours Assessment and Plan Assessment: #1 right lower extremity DVT involving the popliteal vein #2 bilateral lower extremity edema likely secondary to chronic venous insufficiency #3 hematuria #4 history of bladder cancer with recent surgery #5 diabetes Plan: Reviewed venous Doppler demonstrates thrombus within the popliteal vein has not extended. Recommend IV anticoagulation and then oral anticoagulation if patient is able to tolerate. If per medicine or urology he is unable to have oral anticoagulation then he may need IVC filter placed at that time. I would rec ommend attempting to place patient on oral anticoagulation and see if he can tolerate prior to scheduling for filter. We will continue to follow
[2020-09-25] MEDS: LEVOFLOXACIN 500MG-D5W PMX 500 MG in DEXTROSE/WATER 1 100ML.BAG IVPB SCH (16:43)
[2020-09-25 17:29] LABS: Glucose,Whole Blood 113 mg/dL (75-99)
--- NOTE | 2020-09-25 17:54 | P.PN ---
Subjective Progress Note Date: 09/25/20 Principal diagnosis: Right popliteal DVT Acute UTI with cystitis from Pseudomonas, causing sepsis shock Likely recurrence of bladder tumor/cancer Acute blood loss anemia from severe recurrent hematuria 80-year-old man with medical history of kidney stones and bladder cancer, hype rtension/hyperlipidemia/diabetes type 2/CAD presented for bloody urine. Patient said that starting yesterday he noticed that he started to have blood clots in his urine. Then he started to develop severe pain with urination as if he was trying to urinate a large kidney stone. The pain comes in cycles and feels accommodation of sharp with spasms. He took 2 extra strength Tylenol yesterday around 11 was able to sleep for proximally 4 hours before being woken up by the pain. is at bedside, notes that patient has been passing very thick, large blood clots. Patient denies fevers, chills, nausea, vomiting, chest pain, syncope, presyncope, dyspnea, cough, abdominal pain, diarrhea, constipation. Reports dysuria and hematuria. Denies melena/hematochezia. Denies numbness/weakness of extremities. Patient also has venous insufficiency and has had increasing swelling of his right lower extremity. Patient is not on any blood thinners at home. 09/25/2020 Patient is seen and evaluated resting in bed; underwent venous Doppler which came back positive for DVT in popliteal vein; vascular surgery is consulted and not recommending IVC filter placement due to DVT being below-knee with low risk of traveling the lung; patient remains on IV Levaquin for UTI with urine culture growing Pseudomonas Hemoglobin down to 6.5 this morning; patient is status post transfusion with 2 units of packed RBCs POD #2 S/P TURBT; Urine culture growing Pseudomonas; Continue levofloxacin Urology on board and recommending to keep Posada in place, irrigate PRN. Urine sediment is secondary to necrotic prostate; If urine is clear tomorrow can start anticoagulation Objective - Vital Signs Vital signs: Vital Signs Temp 99.9 F H 09/25/20 08:00 Pulse 80 09/25/20 08:00 Resp 16 09/25/20 08:00 BP 112/67 09/25/20 08:00 Pulse Ox 95 09/25/20 08:00 Intake & Output 09/24/20 09/25/20 09/25/20 18:59 06:59 18:59 Intake Total 516 310 118 Output Total 550 Balance 516 -240 118 Weight 121.5 kg Intake: Oral 240 118 Blood Product 276 310 Rc As-1 Unit 310 [id number] Rc Pheres Irrad As 3 276 Unit [id number] Output: Urine 550 Other: Voiding Method Indwelling Catheter Indwelling Catheter - Exam - Constitutional General appearance: Present: average body habitus, cooperative, no acute distress - EENT Eyes: Present: anicteric sclerae, EOMI, PERRLA, normal appearance ENT: Present: hearing grossly normal, normal oropharynx Ears: bilateral: normal - Neck Neck: Present: normal ROM. Absent: lymphadenopathy, rigidity, thyromegaly Carotids: negative: bruit present Thyroid: bilateral: normal size, negative: enlarged, nodule - Respiratory Respiratory: bilateral: CTA, negative: rales, rhonchi, wheezing - Cardiovascular Rhythm: regular Heart sounds: normal: S1, S2 Abnormal Heart Sounds: Absent: systolic murmur, diastolic murmur - Gastrointestinal General gastrointestinal: Present: normal bowel sounds, soft. Absent: distended, organomegaly, tenderness - Genitourinary Genitourinary Comment(s): deferred - Integumentary Integumentary: Present: normal turgor. Absent: jaundiced, rash, ulcer - Neurologic Neurologic: Present: CNII-XII intact. Absent: focal deficits - Musculoskeletal Musculoskeletal: Present: gait normal, strength equal bilaterally - Psychiatric Psychiatric: Present: A&O x's 3, appropriate affect, intact judgment & insight - Labs CBC & Chem 7: 09/25/20 09:59 09/25/20 09:59 Labs: Abnormal Lab Results - Last 24 Hours (Table) 09/23/20 09/24/20 09/24/20 Range/Units 13:20 11:11 11:11 WBC (3.8-10.6) k/uL RBC (4.30-5.90) m/uL Hgb (13.0-17.5) gm/dL Hct (39.0-53.0) % MCV (80.0-100.0) fL MCH (25.0-35.0) pg MCHC (31.0-37.0) g/dL RDW (11.5-15.5) % Plt Count (150-450) k/uL Neutrophils # (1.3-7.7) k/uL Lymphocytes # (1.0-4.8) k/uL Sodium 135 L (137-145) mmol/L Carbon Dioxide 20 L (22-30) mmol/L BUN 24 H (9-20) mg/dL Creatinine 1.60 H (0.66-1.25) mg/dL Glucose 101 H (74-99) mg/dL POC Glucose (mg/dL) (75-99) mg/dL Plasma Lactic Acid Daren 3.5 H* (0.7-2.0) mmol/L Calcium (8.4-10.2) mg/dL Total Protein (6.3-8.2) g/dL Albumin (3.5-5.0) g/dL Crossmatch See Detail 09/24/20 09/24/20 09/24/20 Range/Units 11:33 12:47 15:00 WBC 11.9 H (3.8-10.6) k/uL RBC 2.66 L (4.30-5.90) m/uL Hgb 6.5 L* D (13.0-17.5) gm/dL Hct 21.3 L (39.0-53.0) % MCV (80.0-100.0) fL MCH 24.6 L (25.0-35.0) pg MCHC 30.7 L (31.0-37.0) g/dL RDW 17.7 H (11.5-15.5) % Plt Count 124 L (150-450) k/uL Neutrophils # (1.3-7.7) k/uL Lymphocytes # (1.0-4.8) k/uL Sodium (137-145) mmol/L Carbon Dioxide (22-30) mmol/L BUN (9-20) mg/dL Creatinine (0.66-1.25) mg/dL Glucose (74-99) mg/dL POC Glucose (mg/dL) 121 H (75-99) mg/dL Plasma Lactic Acid Daren 2.5 H* (0.7-2.0) mmol/L Calcium (8.4-10.2) mg/dL Total Protein (6.3-8.2) g/dL Albumin (3.5-5.0) g/dL Crossmatch 09/24/20 09/24/20 09/24/20 Range/Units 16:57 19:38 21:27 WBC 10.7 H (3.8-10.6) k/uL RBC 2.75 L (4.30-5.90) m/uL Hgb 6.9 L* (13.0-17.5) gm/dL Hct 21.7 L (39.0-53.0) % MCV 78.9 L (80.0-100.0) fL MCH (25.0-35.0) pg MCHC (31.0-37.0) g/dL RDW 18.0 H (11.5-15.5) % Plt Count 116 L (150-450) k/uL Neutrophils # 9.4 H (1.3-7.7) k/uL Lymphocytes # 0.5 L (1.0-4.8) k/uL Sodium (137-145) mmol/L Carbon Dioxide (22-30) mmol/L BUN (9-20) mg/dL Creatinine (0.66-1.25) mg/dL Glucose (74-99) mg/dL POC Glucose (mg/dL) 182 H 174 H (75-99) mg/dL Plasma Lactic Acid Daren (0.7-2.0) mmol/L Calcium (8.4-10.2) mg/dL Total Protein (6.3-8.2) g/dL Albumin (3.5-5.0) g/dL Crossmatch 09/24/20 09/25/20 Range/Units 21:27 06:45 WBC (3.8-10.6) k/uL RBC (4.30-5.90) m/uL Hgb (13.0-17.5) gm/dL Hct (39.0-53.0) % MCV (80.0-100.0) fL MCH (25.0-35.0) pg MCHC (31.0-37.0) g/dL RDW (11.5-15.5) % Plt Count (150-450) k/uL Neutrophils # (1.3-7.7) k/uL Lymphocytes # (1.0-4.8) k/uL Sodium 133 L (137-145) mmol/L Carbon Dioxide (22-30) mmol/L BUN 26 H (9-20) mg/dL Creatinine 1.80 H (0.66-1.25) mg/dL Glucose 147 H (74-99) mg/dL POC Glucose (mg/dL) 162 H (75-99) mg/dL Plasma Lactic Acid Daren (0.7-2.0) mmol/L Calcium 8.3 L (8.4-10.2) mg/dL Total Protein 5.3 L (6.3-8.2) g/dL Albumin 2.9 L (3.5-5.0) g/dL Crossmatch Microbiology - Last 24 Hours (Table) 09/24/20 08:45 Urine Culture - Preliminary Urine,Catheterized Assessment and Plan Assessment: 1. Gross hematuria; history of bladder cancer - Patient evaluated by urology and underwent cystoscopy with clot evacuation with resection of recurrent bladder tumor; cystoscopy revealed bladder neck tumor versus prostate - POD # 2; S/P TURBT - Urine culture growing Pseudomonas patient is recommended to continue with IV levofloxacin 2. Acute blood loss anemia; hemoglobin at 6.5 this morning; patient received 2 units of packed RBCs; we'll continue to monitor H&H closely 3. Acute DVT right lower extremity - Anticoagulation contraindicated due to gross hematuria; vascular surgery was consulted and recommended no need for IVC filter placement due to location of DVT below-knee; lesser risk of clot to travel with DVT below-knee - Urology recommending to restart anticoagulation therapy after another 24 hours if no further bleeding 4. Diabetes mellitus type 2/ uncontrolled; patient remains on oral hypoglycemic therapy; continue to monitor Accu-Cheks before meals and at bedtime with insulin sliding scale 5. Hypertension; stable on Cozaar and Coreg with parameters 6. Hyperlipidemia; continue with home dose of Lipitor DVT prophylaxis; SCDs only due to gross hematuria CODE STATUS; full code
[2020-09-25] MEDS: carvediloL 3.125 MG TAB PO SCH (18:40)
[2020-09-25 20:15] LABS: Glucose,Whole Blood 137 mg/dL (75-99)
[2020-09-25] MEDS: INSULIN DETEMIR (LEVEMIR) 100 UNIT/ML SYR SQ SCH (20:15)
[2020-09-26 06:56] LABS: Glucose,Whole Blood 116 mg/dL (75-99)
[2020-09-26] MEDS: INSULIN ASPART (NovoLOG) 100 UNIT/ML VIAL SQ SCH ×7 (07:39→20:23)
[2020-09-26] MEDS: carvediloL 3.125 MG TAB PO SCH ×2 (07:59→17:26)
[2020-09-26] MEDS: CYANOCOBALAMIN 500 MCG TAB PO SCH (07:59)
[2020-09-26] MEDS: ATORVASTATIN 40 MG TAB PO SCH (07:59)
[2020-09-26] MEDS: CHOLECALCIFEROL 25 MCG (1000 IU) TABLET PO SCH (07:59)
[2020-09-26 08:11] LABS: Anisocytosis Slight; Basophils % (A) 0 %; Eosinophils # (A) 0.2 k/uL (0-0.7); Eosinophils % (A) 3 %; HCT 24.7 % (39.0-53.0); HGB 7.7 gm/dL (13.0-17.5); Hypochromasia Moderate; Lymphocytes # (A) 0.7 k/uL (1.0-4.8); Lymphocytes % (A) 10 %; MCH 24.9 pg (25.0-35.0); MCHC 31.2 g/dL (31.0-37.0); MCV 79.9 fL (80.0-100.0); Microcytosis Slight; Monocytes # (A) 0.4 k/uL (0-1.0); Monocytes % (A) 6 %; Neutrophils # (A) 5.4 k/uL (1.3-7.7); Neutrophils % (A) 79 %; Platelet Count 136 k/uL (150-450); Poikilocytosis Slight; RBC 3.09 m/uL (4.30-5.90); RDW 18.2 % (11.5-15.5); WBC 6.8 k/uL (3.8-10.6)
--- NOTE | 2020-09-26 10:24 | P.PN ---
Subjective Progress Note Date: 09/26/20 Principal diagnosis: left lower extremity deep venous thrombosis Sepsis source likely urinary tract/genitourinary Hypotension Lactic acidosis UTI Bilateral lower extremity swelling left more than the right Pseudomonas in the urine Type 2 diabetes mellitus Hypertension hypertensive cardiovascular disease 09/26/2020, patient seen eval examined during the rounds labs reviewed medications reviewed awake and alert respiratory status is much improved breathing comfortably denies any chest pain, urine is clear now, repeat duplex ultrasound of the lower extremity continue show a left popliteal vein deep venous thrombosis so far patient has been not restarted on anticoagulant, however vascular surgery has evaluated, as per urology patient is stable to start IV heparin and subsequently can be switched to oral, urine continued to do be positive for the gram-negative rods, blood cultures have been negative, patient is on IV Levaquin tolerating well This is a pleasant 80-year-old male who was seen eval reexamined on medical floor due to drop in blood pressure and a spiking fever, noted that patient has a cystoscopy and transurethral resection of tumor bladder neck medium, due to gross hematuria and urinary retention with history of bladder cancer, postop day #1, patient spiked fever and dropped his blood pressure currently getting fluid boluses as per order just receive a dose of Cipro, urine culture were positive for Pseudomonas in urine on 09/21, patient has a Posada's catheter,, patient just have a CBC done with white cell count up to 16,200, hemoglobin 8.9 lactic acid went up to 6.8, patient is awake but appear pale, his past medical history significant for renal calculi, bladder cancer, hypertension hypertensive cardiovascular disease, type 2 diabetes mellitus, dyslipidemia he has a bilateral knee replacement also noted swelling of the left lower extremity significantly bigger than the right patient feels that he had it for significant period time Objective - Vital Signs Vital signs: Vital Signs Temp 98.9 F 09/26/20 07:56 Pulse 78 09/26/20 07:56 Resp 16 09/26/20 07:56 BP 121/61 09/26/20 07:56 Pulse Ox 93 L 09/26/20 07:56 Intake & Output 09/25/20 09/26/20 09/26/20 18:59 06:59 18:59 Intake Total 598 240 Output Total 650 1250 750 Balance -52 -1250 -510 Weight 118.5 kg Intake: Oral 598 240 Output: Urine 650 1250 750 Other: Voiding Method Indwelling Catheter Indwelling Catheter Indwelling Catheter # Bowel Movements 1 1 - Exam - Constitutional General appearance: cooperative, disheveled, mild distress, morbidly obese - EENT Eyes: EOMI, PERRLA Ears: bilateral: normal - Neck Neck: normal ROM Carotids: bilateral: upstroke normal Thyroid: bilateral: normal size - Respiratory Respiratory: bilateral: diminished - Cardiovascular Rhythm: regular Heart sounds: normal: S1, S2 - Gastrointestinal General gastrointestinal: decreased bowel sounds, distended, soft - Integumentary Bilateral lower extremity swelling left more than the right Integumentary: normal turgor - Neurologic Neurologic: CNII-XII intact - Musculoskeletal Musculoskeletal: gait normal, generalized weakness, strength equal bilaterally - Psychiatric Psychiatric: A&O x's 3, appropriate affect, intact judgment & insight - Labs CBC & Chem 7: 09/26/20 07:43 09/25/20 09:59 Labs: Abnormal Lab Results - Last 24 Hours (Table) 09/25/20 09/25/20 09/25/20 Range/Units 09:59 11:40 17:06 RBC (4.30-5.90) m/uL Hgb (13.0-17.5) gm/dL Hct (39.0-53.0) % MCV (80.0-100.0) fL MCH (25.0-35.0) pg RDW (11.5-15.5) % Plt Count (150-450) k/uL Lymphocytes # (1.0-4.8) k/uL Sodium 133 L (137-145) mmol/L BUN 28 H (9-20) mg/dL Creatinine 1.88 H (0.66-1.25) mg/dL Glucose 143 H (74-99) mg/dL POC Glucose (mg/dL) 155 H 113 H (75-99) mg/dL Calcium 8.0 L (8.4-10.2) mg/dL AST 84 H (17-59) U/L Total Protein 5.2 L (6.3-8.2) g/dL Albumin 2.8 L (3.5-5.0) g/dL 09/25/20 09/26/20 09/26/20 Range/Units 20:13 06:55 07:43 RBC 3.09 L (4.30-5.90) m/uL Hgb 7.7 L (13.0-17.5) gm/dL Hct 24.7 L (39.0-53.0) % MCV 79.9 L (80.0-100.0) fL MCH 24.9 L (25.0-35.0) pg RDW 18.2 H (11.5-15.5) % Plt Count 136 L (150-450) k/uL Lymphocytes # 0.7 L (1.0-4.8) k/uL Sodium (137-145) mmol/L BUN (9-20) mg/dL Creatinine (0.66-1.25) mg/dL Glucose (74-99) mg/dL POC Glucose (mg/dL) 137 H 116 H (75-99) mg/dL Calcium (8.4-10.2) mg/dL AST (17-59) U/L Total Protein (6.3-8.2) g/dL Albumin (3.5-5.0) g/dL Microbiology - Last 24 Hours (Table) 09/24/20 08:45 Urine Culture - Preliminary Urine,Catheterized Gram Neg Bacilli Gram Neg Bacilli#2 09/24/20 09:06 Blood Culture - Preliminary Blood No Growth after 24 hours Assessment and Plan Assessment: left lower extremity deep venous thrombosis Sepsis source likely urinary tract/genitourinary Hypotension Lactic acidosis UTI Bilateral lower extremity swelling left more than the right Pseudomonas in the urine Type 2 diabetes mellitus Hypertension hypertensive cardiovascular disease Plan: IV heparin, will switch to oral direct anticoagulant in next 24-48 hours pending response monitor hemoglobin closely and urine for hematuria continue IV Levaquin for now Garcia culture including urine and blood Repeat labs including CBC later on along with chemistry Duplex ultrasound the lower extremity After fluid boluses if patient lactic acid remains high not trending downwards or blood pressure remains low we'll transfer to selective care Further plan of care as per clinical response of the patient Time with Patient: Greater than 30
[2020-09-26 10:36] LABS: Anisocytosis Slight; Basophils % (A) 0 %; Eosinophils # (A) 0.2 k/uL (0-0.7); Eosinophils % (A) 3 %; HCT 23.3 % (39.0-53.0); HGB 7.5 gm/dL (13.0-17.5); Hypochromasia Slight; Lymphocytes # (A) 0.6 k/uL (1.0-4.8); Lymphocytes % (A) 9 %; MCH 25.7 pg (25.0-35.0); MCHC 32.3 g/dL (31.0-37.0); MCV 79.7 fL (80.0-100.0); Mean Platelet Volume 9.4; Microcytosis Slight; Monocytes # (A) 0.6 k/uL (0-1.0); Monocytes % (A) 8 %; Neutrophils # (A) 5.8 k/uL (1.3-7.7); Neutrophils % (A) 79 %; Platelet Count 123 k/uL (150-450); Poikilocytosis Slight; RBC 2.93 m/uL (4.30-5.90); RDW 18.3 % (11.5-15.5); WBC 7.4 k/uL (3.8-10.6)
--- NOTE | 2020-09-26 10:45 | P.PN ---
Subjective Progress Note Date: 09/26/20 No acute overnight event urine is clear this am, remains afebrile Objective - Vital Signs Vital signs: Vital Signs Temp 98.9 F 09/26/20 07:56 Pulse 78 09/26/20 07:56 Resp 16 09/26/20 07:56 BP 121/61 09/26/20 07:56 Pulse Ox 93 L 09/26/20 07:56 Intake & Output 09/25/20 09/26/20 09/26/20 18:59 06:59 18:59 Intake Total 598 240 Output Total 650 1250 750 Balance -52 -1250 -510 Weight 118.5 kg Intake: Oral 598 240 Output: Urine 650 1250 750 Other: Voiding Method Indwelling Catheter Indwelling Catheter Indwelling Catheter # Bowel Movements 1 1 - Constitutional General appearance: Present: no acute distress - Gastrointestinal General gastrointestinal: Present: soft. Absent: distended - Genitourinary Genitourinary Comment(s): urine is clear - Psychiatric Psychiatric: Present: A&O x's 3 - Labs CBC & Chem 7: 09/26/20 10:25 09/25/20 09:59 Labs: Abnormal Lab Results - Last 24 Hours (Table) 09/25/20 09/25/20 09/25/20 Range/Units 11:40 17:06 20:13 RBC (4.30-5.90) m/uL Hgb (13.0-17.5) gm/dL Hct (39.0-53.0) % MCV (80.0-100.0) fL MCH (25.0-35.0) pg RDW (11.5-15.5) % Plt Count (150-450) k/uL Lymphocytes # (1.0-4.8) k/uL POC Glucose (mg/dL) 155 H 113 H 137 H (75-99) mg/dL 09/26/20 09/26/20 09/26/20 Range/Units 06:55 07:43 10:25 RBC 3.09 L 2.93 L (4.30-5.90) m/uL Hgb 7.7 L 7.5 L (13.0-17.5) gm/dL Hct 24.7 L 23.3 L (39.0-53.0) % MCV 79.9 L 79.7 L (80.0-100.0) fL MCH 24.9 L (25.0-35.0) pg RDW 18.2 H 18.3 H (11.5-15.5) % Plt Count 136 L 123 L (150-450) k/uL Lymphocytes # 0.7 L 0.6 L (1.0-4.8) k/uL POC Glucose (mg/dL) 116 H (75-99) mg/dL Microbiology - Last 24 Hours (Table) 09/24/20 08:45 Urine Culture - Final Urine,Catheterized Pseudomonas aeruginosa Klebsiella oxytoca 09/24/20 09:06 Blood Culture - Preliminary Blood No Growth after 24 hours Assessment and Plan Assessment: 80 yo male POD #3 S/P TURBT, patient became septic postoperatively. Urine culture growing Pseudomonas. Underwent a venous duplex that showed evidence of a right popliteal DVT -Continue levofloxacin, will need 7 days of abx -Keep Posada in place, irrigate PRN. Urine sediment is secondary to necrotic prostate -Ok to start anticoagulation
[2020-09-26 11:00] LABS: Prothrombin Time 10.7 sec (9.0-12.0)
[2020-09-26 11:08] LABS: Partial Thromboplastin Time 21.2 sec (22.0-30.0)
[2020-09-26] MEDS: HEPARIN SOD,PORK IN 0.45% NACL 25,000 UNIT in 0.45% NACL 1 250ML.BAG IV SCH ×2 (11:43→22:00)
[2020-09-26 11:45] LABS: Glucose,Whole Blood 129 mg/dL (75-99)
--- NOTE | 2020-09-26 13:27 | P.PN ---
Subjective Progress Note Date: 09/26/20 Principal diagnosis: right popliteal DVT patient seen and examined. Doing well today. Denies pain in the right calf or behind the knee. He states his urine is clear and he was started on heparin. He denies any fevers, chills, nausea, chest pain or shortness of breath. Objective - Vital Signs Vital signs: Vital Signs Temp 98.9 F 09/26/20 07:56 Pulse 72 09/26/20 11:47 Resp 18 09/26/20 11:47 BP 133/68 09/26/20 11:47 Pulse Ox 95 09/26/20 11:47 Intake & Output 09/25/20 09/26/20 09/26/20 18:59 06:59 18:59 Intake Total 598 780 Output Total 650 1250 1250 Balance -52 -1250 -470 Weight 118.5 kg Intake: Oral 598 780 Output: Urine 650 1250 1250 Other: Voiding Method Indwelling Catheter Indwelling Catheter Indwelling Catheter # Bowel Movements 1 1 - Exam Alert and oriented 3. No acute distress Heart rate regular Lungs clear, crackles Abdomen soft nondistended Extremities demonstrate bilateral lower extremity edema right greater than left. Negative tenderness to palpation in the right calf. Nonpalpable DP pulse. Multiphasic PT and DP signal Normal strength and sensation - Labs CBC & Chem 7: 09/26/20 10:25 09/25/20 09:59 Labs: Abnormal Lab Results - Last 24 Hours (Table) 09/25/20 09/25/20 09/26/20 Range/Units 17:06 20:13 06:55 RBC (4.30-5.90) m/uL Hgb (13.0-17.5) gm/dL Hct (39.0-53.0) % MCV (80.0-100.0) fL MCH (25.0-35.0) pg RDW (11.5-15.5) % Plt Count (150-450) k/uL Lymphocytes # (1.0-4.8) k/uL APTT (22.0-30.0) sec POC Glucose (mg/dL) 113 H 137 H 116 H (75-99) mg/dL 09/26/20 09/26/20 09/26/20 Range/Units 07:43 10:25 10:25 RBC 3.09 L 2.93 L (4.30-5.90) m/uL Hgb 7.7 L 7.5 L (13.0-17.5) gm/dL Hct 24.7 L 23.3 L (39.0-53.0) % MCV 79.9 L 79.7 L (80.0-100.0) fL MCH 24.9 L (25.0-35.0) pg RDW 18.2 H 18.3 H (11.5-15.5) % Plt Count 136 L 123 L (150-450) k/uL Lymphocytes # 0.7 L 0.6 L (1.0-4.8) k/uL APTT 21.2 L (22.0-30.0) sec POC Glucose (mg/dL) (75-99) mg/dL 09/26/20 Range/Units 11:44 RBC (4.30-5.90) m/uL Hgb (13.0-17.5) gm/dL Hct (39.0-53.0) % MCV (80.0-100.0) fL MCH (25.0-35.0) pg RDW (11.5-15.5) % Plt Count (150-450) k/uL Lymphocytes # (1.0-4.8) k/uL APTT (22.0-30.0) sec POC Glucose (mg/dL) 129 H (75-99) mg/dL Microbiology - Last 24 Hours (Table) 09/24/20 09:06 Blood Culture - Preliminary Blood No Growth after 48 hours 09/24/20 08:45 Urine Culture - Final Urine,Catheterized Pseudomonas aeruginosa Klebsiella oxytoca Assessment and Plan Assessment: #1 right lower extremity DVT involving the popliteal vein #2 bilateral lower extremity edema likely secondary to chronic venous insufficiency #3 hematuria #4 history of bladder cancer with recent surgery #5 diabetes Plan: Continue anticoagulation. Currently he is tolerating it well and we will continue to monitor. If he is unable to continue anticoagulation he will then need IVC filter. We will follow with you.
[2020-09-26] MEDS: LEVOFLOXACIN 500MG-D5W PMX 500 MG in DEXTROSE/WATER 1 100ML.BAG IVPB SCH (13:55)
[2020-09-26 16:30] LABS: Glucose,Whole Blood 164 mg/dL (75-99)
[2020-09-26] MEDS: LEVOFLOXACIN 250MG-D5W PMX 250 MG in DEXTROSE/WATER 1 50ML.BAG IVPB SCH (17:27)
--- NOTE | 2020-09-26 18:23 | P.PN ---
Subjective Progress Note Date: 09/26/20 Principal diagnosis: Right popliteal DVT Acute UTI with cystitis from Pseudomonas, causing sepsis shock Likely recurrence of bladder tumor/cancer Acute blood loss anemia from severe recurrent hematuria 80-year-old man with medical history of kidney stones and bladder cancer, hype rtension/hyperlipidemia/diabetes type 2/CAD presented for bloody urine. Patient said that starting yesterday he noticed that he started to have blood clots in his urine. Then he started to develop severe pain with urination as if he was trying to urinate a large kidney stone. The pain comes in cycles and feels accommodation of sharp with spasms. He took 2 extra strength Tylenol yesterday around 11 was able to sleep for proximally 4 hours before being woken up by the pain. is at bedside, notes that patient has been passing very thick, large blood clots. Patient denies fevers, chills, nausea, vomiting, chest pain, syncope, presyncope, dyspnea, cough, abdominal pain, diarrhea, constipation. Reports dysuria and hematuria. Denies melena/hematochezia. Denies numbness/weakness of extremities. Patient also has venous insufficiency and has had increasing swelling of his right lower extremity. Patient is not on any blood thinners at home. 09/25/2020 Patient is seen and evaluated resting in bed; underwent venous Doppler which came back positive for DVT in popliteal vein; vascular surgery is consulted and not recommending IVC filter placement due to DVT being below-knee with low risk of traveling the lung; patient remains on IV Levaquin for UTI with urine culture growing Pseudomonas Hemoglobin down to 6.5 this morning; patient is status post transfusion with 2 units of packed RBCs POD #2 S/P TURBT; Urine culture growing Pseudomonas; Continue levofloxacin Urology on board and recommending to keep Posada in place, irrigate PRN. 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 Urine culture growing Pseudomonas. Underwent a venous duplex that showed evidence of a right popliteal DVT Urology on board and recommending to Continue levofloxacin, will need 7 days of abx -Keep Posada in place, irrigate PRN. Urine sediment is secondary to necrotic prostate Patient has been started on anticoagulation therapy with IV heparin with plans to transition to oral anticoagulation if hemoglobin remains stable Objective - Vital Signs Vital signs: Vital Signs Temp 98.9 F 09/26/20 07:56 Pulse 72 09/26/20 11:47 Resp 18 09/26/20 11:47 BP 133/68 09/26/20 11:47 Pulse Ox 95 09/26/20 11:47 Intake & Output 09/25/20 09/26/20 09/26/20 18:59 06:59 18:59 Intake Total 598 780 Output Total 650 1250 1250 Balance -52 -1250 -470 Weight 118.5 kg Intake: Oral 598 780 Output: Urine 650 1250 1250 Other: Voiding Method Indwelling Catheter Indwelling Catheter Indwelling Catheter # Bowel Movements 1 1 - Exam - Constitutional General appearance: Present: average body habitus, cooperative, no acute distress - EENT Eyes: Present: anicteric sclerae, EOMI, PERRLA, normal appearance ENT: Present: hearing grossly normal, normal oropharynx Ears: bilateral: normal - Neck Neck: Present: normal ROM. Absent: lymphadenopathy, rigidity, thyromegaly Carotids: negative: bruit present Thyroid: bilateral: normal size, negative: enlarged, nodule - Respiratory Respiratory: bilateral: CTA, negative: rales, rhonchi, wheezing - Cardiovascular Rhythm: regular Heart sounds: normal: S1, S2 Abnormal Heart Sounds: Absent: systolic murmur, diastolic murmur - Gastrointestinal General gastrointestinal: Present: normal bowel sounds, soft. Absent: distended, organomegaly, tenderness - Genitourinary Genitourinary Comment(s): deferred - Integumentary Integumentary: Present: normal turgor. Absent: jaundiced, rash, ulcer - Neurologic Neurologic: Present: CNII-XII intact. Absent: focal deficits - Musculoskeletal Musculoskeletal: Present: gait normal, strength equal bilaterally - Psychiatric Psychiatric: Present: A&O x's 3, appropriate affect, intact judgment & insight - Labs CBC & Chem 7: 09/26/20 10:25 09/25/20 09:59 Labs: Abnormal Lab Results - Last 24 Hours (Table) 09/25/20 09/25/20 09/26/20 Range/Units 17:06 20:13 06:55 RBC (4.30-5.90) m/uL Hgb (13.0-17.5) gm/dL Hct (39.0-53.0) % MCV (80.0-100.0) fL MCH (25.0-35.0) pg RDW (11.5-15.5) % Plt Count (150-450) k/uL Lymphocytes # (1.0-4.8) k/uL APTT (22.0-30.0) sec POC Glucose (mg/dL) 113 H 137 H 116 H (75-99) mg/dL 09/26/20 09/26/20 09/26/20 Range/Units 07:43 10:25 10:25 RBC 3.09 L 2.93 L (4.30-5.90) m/uL Hgb 7.7 L 7.5 L (13.0-17.5) gm/dL Hct 24.7 L 23.3 L (39.0-53.0) % MCV 79.9 L 79.7 L (80.0-100.0) fL MCH 24.9 L (25.0-35.0) pg RDW 18.2 H 18.3 H (11.5-15.5) % Plt Count 136 L 123 L (150-450) k/uL Lymphocytes # 0.7 L 0.6 L (1.0-4.8) k/uL APTT 21.2 L (22.0-30.0) sec POC Glucose (mg/dL) (75-99) mg/dL 09/26/20 Range/Units 11:44 RBC (4.30-5.90) m/uL Hgb (13.0-17.5) gm/dL Hct (39.0-53.0) % MCV (80.0-100.0) fL MCH (25.0-35.0) pg RDW (11.5-15.5) % Plt Count (150-450) k/uL Lymphocytes # (1.0-4.8) k/uL APTT (22.0-30.0) sec POC Glucose (mg/dL) 129 H (75-99) mg/dL Microbiology - Last 24 Hours (Table) 09/24/20 09:06 Blood Culture - Preliminary Blood No Growth after 48 hours 09/24/20 08:45 Urine Culture - Final Urine,Catheterized Pseudomonas aeruginosa Klebsiella oxytoca Assessment and Plan Assessment: 1. Gross hematuria; history of bladder cancer - Patient evaluated by urology and underwent cystoscopy with clot evacuation with resection of recurrent bladder tumor; cystoscopy revealed bladder neck tumor versus prostate - POD # 2; S/P TURBT - Urine culture growing Pseudomonas patient is recommended to continue with IV levofloxacin 2. Acute blood loss anemia; hemoglobin at 6.5 this morning; patient received 2 units of packed RBCs; we'll continue to monitor H&H closely 3. Acute DVT right lower extremity - Anticoagulation contraindicated due to gross hematuria; vascular surgery was consulted and recommended no need for IVC filter placement due to location of DVT below-knee; lesser risk of clot to travel with DVT below-knee - Urology recommending to restart anticoagulation therapy after another 24 hours if no further bleeding 4. Diabetes mellitus type 2/ uncontrolled; patient remains on oral hypoglycemic therapy; continue to monitor Accu-Cheks before meals and at bedtime with insulin sliding scale 5. Hypertension; stable on Cozaar and Coreg with parameters 6. Hyperlipidemia; continue with home dose of Lipitor DVT prophylaxis; SCDs only due to gross hematuria CODE STATUS; full code
[2020-09-26] MEDS: INSULIN DETEMIR (LEVEMIR) 100 UNIT/ML SYR SQ SCH (20:23)
[2020-09-26 20:25] LABS: Glucose,Whole Blood 173 mg/dL (75-99)
[2020-09-26] MEDS: HEPARIN SODIUM 1,000 UN/ML (10ML VL) IV PRN (20:38)
[2020-09-27 04:34] LABS: Anisocytosis Slight; Basophils % (A) 0 %; Eosinophils # (A) 0.2 k/uL (0-0.7); Eosinophils % (A) 3 %; HCT 26.1 % (39.0-53.0); HGB 8.2 gm/dL (13.0-17.5); Hypochromasia Moderate; Lymphocytes # (A) 1.1 k/uL (1.0-4.8); Lymphocytes % (A) 13 %; MCH 25.4 pg (25.0-35.0); MCHC 31.4 g/dL (31.0-37.0); Mean Platelet Volume 8.4; Microcytosis Slight; Monocytes # (A) 0.5 k/uL (0-1.0); Monocytes % (A) 6 %; Neutrophils # (A) 6.3 k/uL (1.3-7.7); Neutrophils % (A) 76 %; Platelet Count 146 k/uL (150-450); RBC 3.23 m/uL (4.30-5.90); RDW 18.3 % (11.5-15.5); WBC 8.4 k/uL (3.8-10.6)
[2020-09-27 05:28] LABS: Calcium 8.5 mg/dL (8.4-10.2); Potassium 4.2 mmol/L (3.5-5.1)
[2020-09-27 07:14] LABS: Glucose,Whole Blood 118 mg/dL (75-99)
[2020-09-27] MEDS: INSULIN ASPART (NovoLOG) 100 UNIT/ML VIAL SQ SCH ×7 (07:17→20:43)
[2020-09-27] MEDS: carvediloL 3.125 MG TAB PO SCH ×2 (07:17→17:25)
[2020-09-27] MEDS: HEPARIN SOD,PORK IN 0.45% NACL 25,000 UNIT in 0.45% NACL 1 250ML.BAG IV SCH ×2 (07:19→20:09)
[2020-09-27] MEDS: CHOLECALCIFEROL 25 MCG (1000 IU) TABLET PO SCH (07:51)
[2020-09-27] MEDS: ATORVASTATIN 40 MG TAB PO SCH (07:52)
[2020-09-27] MEDS: CYANOCOBALAMIN 500 MCG TAB PO SCH (07:52)
--- NOTE | 2020-09-27 10:00 | P.PN ---
Subjective Progress Note Date: 09/27/20 Principal diagnosis: left lower extremity deep venous thrombosis Sepsis source likely urinary tract/genitourinary Hypotension Lactic acidosis UTI Bilateral lower extremity swelling left more than the right Pseudomonas in the urine Type 2 diabetes mellitus Hypertension hypertensive cardiovascular disease 09/27/2020, patient seen eval examined during the rounds labs reviewed medications reviewed care plan discussed, respiratory status remains stable denies any chest pain, patient remains on heparin for the last 24 hours, tolerating well, no hematuria has been noted, hemoglobin remained stable 8.2, BUN/creatinine improved to 27 and 1.4, repeat urine culture came back positive for Pseudomonas and Klebsiella both sensitive to Levaquin which patient is on 09/26/2020, patient seen eval examined during the rounds labs reviewed medications reviewed awake and alert respiratory status is much improved breathing comfortably denies any chest pain, urine is clear now, repeat duplex ultrasound of the lower extremity continue show a left popliteal vein deep venous thrombosis so far patient has been not restarted on anticoagulant, however vascular surgery has evaluated, as per urology patient is stable to start IV heparin and subsequently can be switched to oral, urine continued to do be positive for the gram-negative rods, blood cultures have been negative, patient is on IV Levaquin tolerating well This is a pleasant 80-year-old male who was seen eval reexamined on medical floor due to drop in blood pressure and a spiking fever, noted that patient has a cystoscopy and transurethral resection of tumor bladder neck medium, due to gross hematuria and urinary retention with history of bladder cancer, postop day #1, patient spiked fever and dropped his blood pressure currently getting fluid boluses as per order just receive a dose of Cipro, urine culture were positive for Pseudomonas in urine on 09/21, patient has a Posada's catheter,, patient just have a CBC done with white cell count up to 16,200, hemoglobin 8.9 lactic acid went up to 6.8, patient is awake but appear pale, his past medical history significant for renal calculi, bladder cancer, hypertension hypertensive cardiovascular disease, type 2 diabetes mellitus, dyslipidemia he has a bilateral knee replacement also noted swelling of the left lower extremity significantly bigger than the right patient feels that he had it for significant period time Objective - Vital Signs Vital signs: Vital Signs Temp 98.1 F 09/27/20 07:43 Pulse 74 09/27/20 07:56 Resp 18 09/27/20 07:56 BP 126/65 09/27/20 07:43 Pulse Ox 95 09/27/20 07:43 Intake & Output 09/26/20 09/27/20 09/27/20 18:59 06:59 18:59 Intake Total 1140 423.085 549.756 Output Total 2525 1000 2400 Balance -1385 -576.915 -1850.244 Weight 124.5 kg Intake: Intake, IV Titration 423.085 9.756 Amount Heparin Sod,Pork in 0.45% 423.085 9.756 NaCl 25,000 unit In 0.45 % NaCl 1 250ml.bag @ 18 UNITS/KG/HR 21.33 mls/hr IV .[id number] [facility] Rx#: [id number] Oral 1140 540 Output: Urine 2525 1000 2400 Other: Voiding Method Indwelling Catheter Indwelling Catheter Indwelling Catheter # Bowel Movements 1 - Exam - Constitutional General appearance: cooperative, disheveled, mild distress, morbidly obese - EENT Eyes: EOMI, PERRLA Ears: bilateral: normal - Neck Neck: normal ROM Carotids: bilateral: upstroke normal Thyroid: bilateral: normal size - Respiratory Respiratory: bilateral: diminished - Cardiovascular Rhythm: regular Heart sounds: normal: S1, S2 - Gastrointestinal General gastrointestinal: decreased bowel sounds, distended, soft - Integumentary Bilateral lower extremity swelling left more than the right Integumentary: normal turgor - Neurologic Neurologic: CNII-XII intact - Musculoskeletal Musculoskeletal: gait normal, generalized weakness, strength equal bilaterally - Psychiatric Psychiatric: A&O x's 3, appropriate affect, intact judgment & insight - Labs CBC & Chem 7: 09/27/20 02:46 09/27/20 02:46 Labs: Abnormal Lab Results - Last 24 Hours (Table) 09/26/20 09/26/20 09/26/20 Range/Units 10:25 10:25 11:44 RBC 2.93 L (4.30-5.90) m/uL Hgb 7.5 L (13.0-17.5) gm/dL Hct 23.3 L (39.0-53.0) % MCV 79.7 L (80.0-100.0) fL RDW 18.3 H (11.5-15.5) % Plt Count 123 L (150-450) k/uL Lymphocytes # 0.6 L (1.0-4.8) k/uL APTT 21.2 L (22.0-30.0) sec Sodium (137-145) mmol/L BUN (9-20) mg/dL Creatinine (0.66-1.25) mg/dL Glucose (74-99) mg/dL POC Glucose (mg/dL) 129 H (75-99) mg/dL 09/26/20 09/26/20 09/27/20 Range/Units 16:29 20:07 02:46 RBC (4.30-5.90) m/uL Hgb (13.0-17.5) gm/dL Hct (39.0-53.0) % MCV (80.0-100.0) fL RDW (11.5-15.5) % Plt Count (150-450) k/uL Lymphocytes # (1.0-4.8) k/uL APTT (22.0-30.0) sec Sodium 134 L (137-145) mmol/L BUN 27 H (9-20) mg/dL Creatinine 1.40 H (0.66-1.25) mg/dL Glucose 107 H (74-99) mg/dL POC Glucose (mg/dL) 164 H 173 H (75-99) mg/dL 09/27/20 09/27/20 09/27/20 Range/Units 02:46 02:46 07:12 RBC 3.23 L (4.30-5.90) m/uL Hgb 8.2 L (13.0-17.5) gm/dL Hct 26.1 L (39.0-53.0) % MCV (80.0-100.0) fL RDW 18.3 H (11.5-15.5) % Plt Count 146 L (150-450) k/uL Lymphocytes # (1.0-4.8) k/uL APTT 195.3 H* (22.0-30.0) sec Sodium (137-145) mmol/L BUN (9-20) mg/dL Creatinine (0.66-1.25) mg/dL Glucose (74-99) mg/dL POC Glucose (mg/dL) 118 H (75-99) mg/dL Microbiology - Last 24 Hours (Table) 09/24/20 09:06 Blood Culture - Preliminary Blood No Growth after 48 hours 09/24/20 08:45 Urine Culture - Final Urine,Catheterized Pseudomonas aeruginosa Klebsiella oxytoca Assessment and Plan Assessment: left lower extremity deep venous thrombosis Sepsis source likely urinary tract/genitourinary Hypotension Lactic acidosis Klebsiella and Pseudomonas UTI, both sensitive to Levaquin Bilateral lower extremity swelling left more than the right morbid obesity Likely sleep disorder breathing and sleep apnea to be evaluated further outpatient basis Type 2 diabetes mellitus Hypertension hypertensive cardiovascular disease Plan: IV heparin, will switch to oral direct anticoagulant in next 24 hours pending response monitor hemoglobin closely and urine for hematuria continue IV Levaquin for now follow-up onPan culture including urine and blood, continue Levaquin Repeat labs including CBC and chemistry in a.m. Duplex ultrasound the lower extremity results reviewed Further plan of care as per clinical response of the patient Time with Patient: Greater than 30
--- NOTE | 2020-09-27 10:25 | P.PN ---
Subjective Progress Note Date: 09/27/20 No acute overnight event urine is still clear this am, currently on anticoagulation Objective - Vital Signs Vital signs: Vital Signs Temp 98.1 F 09/27/20 07:43 Pulse 74 09/27/20 07:56 Resp 18 09/27/20 07:56 BP 126/65 09/27/20 07:43 Pulse Ox 95 09/27/20 07:43 Intake & Output 09/26/20 09/27/20 09/27/20 18:59 06:59 18:59 Intake Total 1140 423.085 549.756 Output Total 2525 1000 2400 Balance -1385 -576.915 -1850.244 Weight 124.5 kg Intake: Intake, IV Titration 423.085 9.756 Amount Heparin Sod,Pork in 0.45% 423.085 9.756 NaCl 25,000 unit In 0.45 % NaCl 1 250ml.bag @ 18 UNITS/KG/HR 21.33 mls/hr IV .[id number] [facility] Rx#: [id number] Oral 1140 540 Output: Urine 2525 1000 2400 Other: Voiding Method Indwelling Catheter Indwelling Catheter Indwelling Catheter # Bowel Movements 1 - Constitutional General appearance: Present: no acute distress - Genitourinary Genitourinary Comment(s): Urine clear - Psychiatric Psychiatric: Present: A&O x's 3 - Labs CBC & Chem 7: 09/27/20 02:46 09/27/20 02:46 Labs: Abnormal Lab Results - Last 24 Hours (Table) 09/26/20 09/26/20 09/26/20 Range/Units 10:25 10:25 11:44 RBC 2.93 L (4.30-5.90) m/uL Hgb 7.5 L (13.0-17.5) gm/dL Hct 23.3 L (39.0-53.0) % MCV 79.7 L (80.0-100.0) fL RDW 18.3 H (11.5-15.5) % Plt Count 123 L (150-450) k/uL Lymphocytes # 0.6 L (1.0-4.8) k/uL APTT 21.2 L (22.0-30.0) sec Sodium (137-145) mmol/L BUN (9-20) mg/dL Creatinine (0.66-1.25) mg/dL Glucose (74-99) mg/dL POC Glucose (mg/dL) 129 H (75-99) mg/dL 09/26/20 09/26/20 09/27/20 Range/Units 16:29 20:07 02:46 RBC (4.30-5.90) m/uL Hgb (13.0-17.5) gm/dL Hct (39.0-53.0) % MCV (80.0-100.0) fL RDW (11.5-15.5) % Plt Count (150-450) k/uL Lymphocytes # (1.0-4.8) k/uL APTT (22.0-30.0) sec Sodium 134 L (137-145) mmol/L BUN 27 H (9-20) mg/dL Creatinine 1.40 H (0.66-1.25) mg/dL Glucose 107 H (74-99) mg/dL POC Glucose (mg/dL) 164 H 173 H (75-99) mg/dL 09/27/20 09/27/20 09/27/20 Range/Units 02:46 02:46 07:12 RBC 3.23 L (4.30-5.90) m/uL Hgb 8.2 L (13.0-17.5) gm/dL Hct 26.1 L (39.0-53.0) % MCV (80.0-100.0) fL RDW 18.3 H (11.5-15.5) % Plt Count 146 L (150-450) k/uL Lymphocytes # (1.0-4.8) k/uL APTT 195.3 H* (22.0-30.0) sec Sodium (137-145) mmol/L BUN (9-20) mg/dL Creatinine (0.66-1.25) mg/dL Glucose (74-99) mg/dL POC Glucose (mg/dL) 118 H (75-99) mg/dL Microbiology - Last 24 Hours (Table) 09/24/20 09:06 Blood Culture - Preliminary Blood No Growth after 48 hours 09/24/20 08:45 Urine Culture - Final Urine,Catheterized Pseudomonas aeruginosa Klebsiella oxytoca Assessment and Plan Assessment: 80 yo male POD #4 S/P TURBT, patient became septic postoperatively. Urine culture growing Pseudomonas. Underwent a venous duplex that showed evidence of a right popliteal DVT -Continue levofloxacin, will need 7 days of abx -Keep Posada in place, irrigate PRN. Urine sediment is secondary to necrotic prostate -Ok to continue anticoagulation -Follow up on final pathology
[2020-09-27 11:55] LABS: Glucose,Whole Blood 133 mg/dL (75-99)
[2020-09-27] MEDS: MORPHINE SULFATE 4 MG/ML SYRINGE IV PRN ×2 (12:00→18:00)
--- NOTE | 2020-09-27 15:17 | P.PN ---
Subjective Principal diagnosis: Right popliteal DVT Acute UTI with cystitis from Pseudomonas, causing sepsis shock Likely recurrence of bladder tumor/cancer Acute blood loss anemia from severe recurrent hematuria 80-year-old man with medical history of kidney stones and bladder cancer, hypertension/hyperlipidemia/diabetes type 2/CAD presented for bloody urine. Patient said that starting yesterday he noticed that he started to have blood clots in his urine. Then he started to develop severe pain with urination as if he was trying to urinate a large kidney stone. The pain comes in cycles and feels accommodation of sharp with spasms. He took 2 extra strength Tylenol yesterday around 11 was able to sleep for proximally 4 hours before being woken up by the pain. is at bedside, notes that patient has been passing very thick, large blood clots. Patient denies fevers, chills, nausea, vomiting, chest pain, syncope, presyncope, dyspnea, cough, abdominal pain, diarrhea, constipation. Reports dysuria and hematuria. Denies melena/hematochezia. Denies numbness/weakness of extremities. Patient also has venous insufficiency and has had increasing swelling of his right lower extremity. Patient is not on any blood thinners at home. 09/25/2020 Patient is seen and evaluated resting in bed; underwent venous Doppler which came back positive for DVT in popliteal vein; vascular surgery is consulted and not recommending IVC filter placement due to DVT being below-knee with low risk of traveling the lung; patient remains on IV Levaquin for UTI with urine culture growing Pseudomonas Hemoglobin down to 6.5 this morning; patient is status post transfusion with 2 units of packed RBCs POD #2 S/P TURBT; Urine culture growing Pseudomonas; Continue levofloxacin Urology on board and recommending to keep Posada in place, irrigate PRN. 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 Urine culture growing Pseudomonas. Underwent a venous duplex that showed evidence of a right popliteal DVT Urology on board and recommending to Continue levofloxacin, will need 7 days of abx -Keep Posada in place, irrigate PRN. 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 Patient's PTT is high patient is presently on IV heparin patient was a evaluated by vascular surgery for possible placement of IVC filter since patient was tolerating IV heparin IV filter was not being considered. Patient was monitored overnight with will hold off on IV heparin. Patient will eventually need to be transitioned to oral anticoagulation. Constitutional: Denied any fatigue denied any fever. Cardio vascular: denied any chest pain, palpitations Gastrointestinal denied any nausea vomiting Pulmonary: Denied any shortness of breath cough Neurologic denied any new focal deficits All inpatient medications were reviewed and appropriate changes in these medications as dictated in the interval history and assessment and plan. Objective - Vital Signs Vital signs: Vital Signs Temp 97.7 F 09/27/20 12:00 Pulse 82 09/27/20 12:00 Resp 18 09/27/20 12:00 BP 118/74 09/27/20 12:00 Pulse Ox 96 09/27/20 12:00 Intake & Output 09/26/20 09/27/20 09/27/20 18:59 06:59 18:59 Intake Total 1140 423.085 932.351 Output Total 2525 1000 2400 Balance -1385 -576.915 -1467.649 Weight 124.5 kg Intake: Intake, IV Titration 423.085 152.351 Amount Heparin Sod,Pork in 0.45% 423.085 152.351 NaCl 25,000 unit In 0.45 % NaCl 1 250ml.bag @ 18 UNITS/KG/HR 21.33 mls/hr IV .[id number] [facility] Rx#: [id number] Oral 1140 780 Output: Urine 2525 1000 2400 Other: Voiding Method Indwelling Catheter Indwelling Catheter Indwelling Catheter # Bowel Movements 1 - Exam PHYSICAL EXAMINATION: GENERAL: The patient is alert and oriented x3, not in any acute distress. Obese HEENT: Pupils are round and equally reacting to light. EOMI. No scleral icterus. No conjunctival pallor. Normocephalic, atraumatic. No pharyngeal erythema. No thyromegaly. CARDIOVASCULAR: S1 and S2 present. No murmurs, rubs, or gallops. PULMONARY: Chest is clear to auscultation, no wheezing or crackles. ABDOMEN: Soft, nontender, nondistended, normoactive bowel sounds. No palpable organomegaly. MUSCULOSKELETAL: No joint swelling or deformity. EXTREMITIES: No cyanosis, clubbing, or lateral pitting pedal edema significant edema of the right lower extremity NEUROLOGICAL: Gross neurological examination did not reveal any focal deficits. SKIN: No rashes. - Labs CBC & Chem 7: 09/27/20 02:46 09/27/20 02:46 Labs: Abnormal Lab Results - Last 24 Hours (Table) 09/26/20 09/26/20 09/27/20 Range/Units 16:29 20:07 02:46 RBC (4.30-5.90) m/uL Hgb (13.0-17.5) gm/dL Hct (39.0-53.0) % RDW (11.5-15.5) % Plt Count (150-450) k/uL APTT (22.0-30.0) sec Sodium 134 L (137-145) mmol/L BUN 27 H (9-20) mg/dL Creatinine 1.40 H (0.66-1.25) mg/dL Glucose 107 H (74-99) mg/dL POC Glucose (mg/dL) 164 H 173 H (75-99) mg/dL 09/27/20 09/27/20 09/27/20 Range/Units 02:46 02:46 07:12 RBC 3.23 L (4.30-5.90) m/uL Hgb 8.2 L (13.0-17.5) gm/dL Hct 26.1 L (39.0-53.0) % RDW 18.3 H (11.5-15.5) % Plt Count 146 L (150-450) k/uL APTT 195.3 H* (22.0-30.0) sec Sodium (137-145) mmol/L BUN (9-20) mg/dL Creatinine (0.66-1.25) mg/dL Glucose (74-99) mg/dL POC Glucose (mg/dL) 118 H (75-99) mg/dL 09/27/20 09/27/20 Range/Units 11:54 12:17 RBC (4.30-5.90) m/uL Hgb (13.0-17.5) gm/dL Hct (39.0-53.0) % RDW (11.5-15.5) % Plt Count (150-450) k/uL APTT 81.5 H (22.0-30.0) sec Sodium (137-145) mmol/L BUN (9-20) mg/dL Creatinine (0.66-1.25) mg/dL Glucose (74-99) mg/dL POC Glucose (mg/dL) 133 H (75-99) mg/dL Microbiology - Last 24 Hours (Table) 09/24/20 09:06 Blood Culture - Preliminary Blood No Growth after 72 hours Assessment and Plan Plan: 1. Gross hematuria; history of bladder cancer - Patient evaluated by urology and underwent cystoscopy with clot evacuation with resection of recurrent bladder tumor; cystoscopy revealed bladder neck tumor versus prostate - POD # 3; S/P TURBT if patient has mild hematuria holding of anticoagulation - Urine culture growing Pseudomonas patient is recommended to continue with IV levofloxacin 2. Acute blood loss anemia; hemoglobin at 6.5 this morning; patient received 2 units of packed RBCs; we'll continue to monitor hemoglobin presently 8.2 3. Acute DVT right lower extremity Patient is presently on IV heparin vascular surgery evaluated the patient and not considering IVC filter IVC filter due to location of DVT and patient was able to tolerate IV anticoagulation until now. lesser risk of clot to travel with DVT below-knee - Urology recommending to restart anticoagulation therapy after another 24 hours if no further bleeding 4. Diabetes mellitus type 2/ uncontrolled; patient remains on oral hypoglycemic therapy; continue to monitor Accu-Cheks before meals and at bedtime with insulin sliding scale 5. Hypertension; stable on Cozaar and Coreg with parameters 6. Hyperlipidemia; continue with home dose of Lipitor DVT prophylaxis; patient is presently on IV heparin CODE STATUS; full code
--- NOTE | 2020-09-27 16:32 | P.PN ---
Subjective Progress Note Date: 09/27/20 Principal diagnosis: right popliteal DVT patient seen and examined. Heparin was stopped due to blood-tinged in his Posada. Per urology heparin drip was stopped and should be restarted in 24 hours if no further bleeding is noted. He denies any fevers, chills, nausea, chest pain or shortness of breath. Objective - Vital Signs Vital signs: Vital Signs Temp 97.7 F 09/27/20 12:00 Pulse 82 09/27/20 12:00 Resp 18 09/27/20 12:00 BP 118/74 09/27/20 12:00 Pulse Ox 96 09/27/20 12:00 Intake & Output 09/26/20 09/27/20 09/27/20 18:59 06:59 18:59 Intake Total 1140 423.085 932.351 Output Total 2525 1000 2400 Balance -1385 -576.915 -1467.649 Weight 124.5 kg Intake: Intake, IV Titration 423.085 152.351 Amount Heparin Sod,Pork in 0.45% 423.085 152.351 NaCl 25,000 unit In 0.45 % NaCl 1 250ml.bag @ 18 UNITS/KG/HR 21.33 mls/hr IV .[id number] [facility] Rx#: [id number] Oral 1140 780 Output: Urine 2525 1000 2400 Other: Voiding Method Indwelling Catheter Indwelling Catheter Indwelling Catheter # Bowel Movements 1 - Exam Alert and oriented 3. No acute distress Heart rate regular Lungs clear, crackles Abdomen soft nondistended Extremities demonstrate bilateral lower extremity edema right greater than left. Negative tenderness to palpation in the right calf. Nonpalpable DP pulse. Multiphasic PT and DP signal Normal strength and sensation Posada catheter with blood-tinged urine - Labs CBC & Chem 7: 09/27/20 02:46 09/27/20 02:46 Labs: Abnormal Lab Results - Last 24 Hours (Table) 09/26/20 09/26/20 09/27/20 Range/Units 16:29 20:07 02:46 RBC (4.30-5.90) m/uL Hgb (13.0-17.5) gm/dL Hct (39.0-53.0) % RDW (11.5-15.5) % Plt Count (150-450) k/uL APTT (22.0-30.0) sec Sodium 134 L (137-145) mmol/L BUN 27 H (9-20) mg/dL Creatinine 1.40 H (0.66-1.25) mg/dL Glucose 107 H (74-99) mg/dL POC Glucose (mg/dL) 164 H 173 H (75-99) mg/dL 09/27/20 09/27/20 09/27/20 Range/Units 02:46 02:46 07:12 RBC 3.23 L (4.30-5.90) m/uL Hgb 8.2 L (13.0-17.5) gm/dL Hct 26.1 L (39.0-53.0) % RDW 18.3 H (11.5-15.5) % Plt Count 146 L (150-450) k/uL APTT 195.3 H* (22.0-30.0) sec Sodium (137-145) mmol/L BUN (9-20) mg/dL Creatinine (0.66-1.25) mg/dL Glucose (74-99) mg/dL POC Glucose (mg/dL) 118 H (75-99) mg/dL 09/27/20 09/27/20 Range/Units 11:54 12:17 RBC (4.30-5.90) m/uL Hgb (13.0-17.5) gm/dL Hct (39.0-53.0) % RDW (11.5-15.5) % Plt Count (150-450) k/uL APTT 81.5 H (22.0-30.0) sec Sodium (137-145) mmol/L BUN (9-20) mg/dL Creatinine (0.66-1.25) mg/dL Glucose (74-99) mg/dL POC Glucose (mg/dL) 133 H (75-99) mg/dL Microbiology - Last 24 Hours (Table) 09/24/20 09:06 Blood Culture - Preliminary Blood No Growth after 72 hours Assessment and Plan Assessment: #1 right lower extremity DVT involving the popliteal vein #2 bilateral lower extremity edema likely secondary to chronic venous insufficiency #3 hematuria #4 history of bladder cancer with recent surgery #5 diabetes Plan: Continue anticoagulation. Heparin drip was stopped and will be restarted in 24 hours per urology. If continued bleeding or drop in hemoglobin he will then need IVC filter. We will follow with you.
[2020-09-27 16:50] LABS: Glucose,Whole Blood 151 mg/dL (75-99)
[2020-09-27] MEDS: LEVOFLOXACIN 250MG-D5W PMX 250 MG in DEXTROSE/WATER 1 50ML.BAG IVPB SCH (17:25)
[2020-09-27 20:24] LABS: Glucose,Whole Blood 174 mg/dL (75-99)
[2020-09-27] MEDS: INSULIN DETEMIR (LEVEMIR) 100 UNIT/ML SYR SQ SCH (20:43)
[2020-09-28] MEDS: carvediloL 3.125 MG TAB PO SCH (06:58)
[2020-09-28] MEDS: INSULIN ASPART (NovoLOG) 100 UNIT/ML VIAL SQ SCH ×7 (07:04→19:57)
[2020-09-28 07:05] LABS: Glucose,Whole Blood 114 mg/dL (75-99)
[2020-09-28 07:33] LABS: Anisocytosis Slight; HCT 25.6 % (39.0-53.0); Hypochromasia Marked; MCH 25.6 pg (25.0-35.0); MCHC 31.4 g/dL (31.0-37.0); MCV 81.4 fL (80.0-100.0); Mean Platelet Volume 7.2; Microcytosis Slight; Platelet Count 176 k/uL (150-450); RBC 3.14 m/uL (4.30-5.90); RDW 18.2 % (11.5-15.5); WBC 7.7 k/uL (3.8-10.6)
[2020-09-28 07:38] LABS: Calcium 8.4 mg/dL (8.4-10.2); Potassium 4.4 mmol/L (3.5-5.1)
--- NOTE | 2020-09-28 09:51 | P.PN ---
Subjective Started having gross hematuria yesterday. This am his urine is clear. Objective - Vital Signs Vital signs: Vital Signs Temp 98.4 F 09/28/20 08:37 Pulse 87 09/28/20 08:37 Resp 15 09/28/20 08:37 BP 104/72 09/28/20 08:37 Pulse Ox 97 09/28/20 08:37 Intake & Output 09/27/20 09/28/20 09/28/20 18:59 06:59 18:59 Intake Total 1368.566 0 Output Total 2900 2049 Balance -1531.434 -2049 Weight 120.7 kg Intake: Intake, IV Titration 228.566 0 Amount Heparin Sod,Pork in 0.45% 228.566 0 NaCl 25,000 unit In 0.45 % NaCl 1 250ml.bag @ 18 UNITS/KG/HR 21.33 mls/hr IV .[id number] [facility] Rx#: [id number] Oral 1140 Output: Urine 2899 2049 Other: Voiding Method Indwelling Catheter Indwelling Catheter # Bowel Movements 1 - Constitutional General appearance: Present: no acute distress - Genitourinary Genitourinary Comment(s): Urine clear this am - Psychiatric Psychiatric: Present: A&O x's 3, appropriate affect - Labs CBC & Chem 7: 09/28/20 06:27 09/28/20 06:27 Labs: Abnormal Lab Results - Last 24 Hours (Table) 09/27/20 09/27/20 09/27/20 Range/Units 11:54 12:17 16:49 RBC (4.30-5.90) m/uL Hgb (13.0-17.5) gm/dL Hct (39.0-53.0) % RDW (11.5-15.5) % APTT 81.5 H (22.0-30.0) sec Sodium (137-145) mmol/L Creatinine (0.66-1.25) mg/dL Glucose (74-99) mg/dL POC Glucose (mg/dL) 133 H 151 H (75-99) mg/dL 09/27/20 09/28/20 09/28/20 Range/Units 20:01 06:27 06:27 RBC 3.14 L (4.30-5.90) m/uL Hgb 8.0 L (13.0-17.5) gm/dL Hct 25.6 L (39.0-53.0) % RDW 18.2 H (11.5-15.5) % APTT (22.0-30.0) sec Sodium 134 L (137-145) mmol/L Creatinine 1.28 H (0.66-1.25) mg/dL Glucose 108 H (74-99) mg/dL POC Glucose (mg/dL) 174 H (75-99) mg/dL 09/28/20 Range/Units 07:03 RBC (4.30-5.90) m/uL Hgb (13.0-17.5) gm/dL Hct (39.0-53.0) % RDW (11.5-15.5) % APTT (22.0-30.0) sec Sodium (137-145) mmol/L Creatinine (0.66-1.25) mg/dL Glucose (74-99) mg/dL POC Glucose (mg/dL) 114 H (75-99) mg/dL Microbiology - Last 24 Hours (Table) 09/24/20 09:06 Blood Culture - Preliminary Blood No Growth after 72 hours Assessment and Plan Assessment: 80 yo male POD #5 S/P TURBT, patient became septic postoperatively. Urine culture growing Pseudomonas. Underwent a venous duplex that showed evidence of a right popliteal DVT -Continue levofloxacin, will need 7 days of abx -Keep Posada in place, irrigate PRN. Urine sediment is secondary to necrotic prostate -Ok to restart anticogulation, will reassess tomorrow -Follow up on final pathology
[2020-09-28] MEDS: CYANOCOBALAMIN 500 MCG TAB PO SCH (10:07)
[2020-09-28] MEDS: CHOLECALCIFEROL 25 MCG (1000 IU) TABLET PO SCH (10:08)
[2020-09-28] MEDS: ATORVASTATIN 40 MG TAB PO SCH (10:08)
--- NOTE | 2020-09-28 11:04 | P.PN ---
Subjective Progress Note Date: 09/28/20 Principal diagnosis: left lower extremity deep venous thrombosis Sepsis source likely urinary tract/genitourinary Hypotension Lactic acidosis UTI Bilateral lower extremity swelling left more than the right Pseudomonas in the urine Type 2 diabetes mellitus Hypertension hypertensive cardiovascular disease 09/28/2020, patient seen eval examined during the rounds labs reviewed medications reviewed and discussed with RN it appears that anticoagulation was stopped due to hematuria however urine is clear urology cleared the patient to resume the anticoagulation will start the heparin again for deep venous thrombosis patient remains on broad-spectrum antibiotics for polymicrobial urinary tract infection 09/27/2020, patient seen eval examined during the rounds labs reviewed medications reviewed care plan discussed, respiratory status remains stable denies any chest pain, patient remains on heparin for the last 24 hours, tolerating well, no hematuria has been noted, hemoglobin remained stable 8.2, BUN/creatinine improved to 27 and 1.4, repeat urine culture came back positive for Pseudomonas and Klebsiella both sensitive to Levaquin which patient is on 09/26/2020, patient seen eval examined during the rounds labs reviewed medications reviewed awake and alert respiratory status is much improved breathing comfortably denies any chest pain, urine is clear now, repeat duplex ultrasound of the lower extremity continue show a left popliteal vein deep venous thrombosis so far patient has been not restarted on anticoagulant, however vascular surgery has evaluated, as per urology patient is stable to start IV heparin and subsequently can be switched to oral, urine continued to do be positive for the gram-negative rods, blood cultures have been negative, patient is on IV Levaquin tolerating well This is a pleasant 80-year-old male who was seen eval reexamined on medical floor due to drop in blood pressure and a spiking fever, noted that patient has a cystoscopy and transurethral resection of tumor bladder neck medium, due to gross hematuria and urinary retention with history of bladder cancer, postop day #1, patient spiked fever and dropped his blood pressure currently getting fluid boluses as per order just receive a dose of Cipro, urine culture were positive for Pseudomonas in urine on 09/21, patient has a Posada's catheter,, patient just have a CBC done with white cell count up to 16,200, hemoglobin 8.9 lactic acid went up to 6.8, patient is awake but appear pale, his past medical history significant for renal calculi, bladder cancer, hypertension hypertensive cardiovascular disease, type 2 diabetes mellitus, dyslipidemia he has a bilateral knee replacement also noted swelling of the left lower extremity significantly bigger than the right patient feels that he had it for significant period time Objective - Vital Signs Vital signs: Vital Signs Temp 98.4 F 09/28/20 08:37 Pulse 87 09/28/20 08:37 Resp 15 09/28/20 08:37 BP 104/72 09/28/20 08:37 Pulse Ox 97 09/28/20 08:37 Intake & Output 09/27/20 09/28/20 09/28/20 18:59 06:59 18:59 Intake Total 1368.566 0 240 Output Total 2900 2050 850 Balance -1531.434 -2049 - Weight 120.7 kg Intake: Intake, IV Titration 228.566 0 0 Amount Heparin Sod,Pork in 0.45% 228.566 0 0 NaCl 25,000 unit In 0.45 % NaCl 1 250ml.bag @ 18 UNITS/KG/HR 21.33 mls/hr IV .[id number] [facility] Rx#: [id number] Oral 1140 240 Output: Urine 2900 0 850 Other: Voiding Method Indwelling Catheter Indwelling Catheter Indwelling Catheter # Bowel Movements 1 - Exam - Constitutional General appearance: cooperative, disheveled, mild distress, morbidly obese - EENT Eyes: EOMI, PERRLA Ears: bilateral: normal - Neck Neck: normal ROM Carotids: bilateral: upstroke normal Thyroid: bilateral: normal size - Respiratory Respiratory: bilateral: diminished - Cardiovascular Rhythm: regular Heart sounds: normal: S1, S2 - Gastrointestinal General gastrointestinal: decreased bowel sounds, distended, soft - Integumentary Bilateral lower extremity swelling left more than the right Integumentary: normal turgor - Neurologic Neurologic: CNII-XII intact - Musculoskeletal Musculoskeletal: gait normal, generalized weakness, strength equal bilaterally - Psychiatric Psychiatric: A&O x's 3, appropriate affect, intact judgment & insight - Labs CBC & Chem 7: 09/28/20 06:27 09/28/20 06:27 Labs: Abnormal Lab Results - Last 24 Hours (Table) 09/27/20 09/27/20 09/27/20 Range/Units 11:54 12:17 16:49 RBC (4.30-5.90) m/uL Hgb (13.0-17.5) gm/dL Hct (39.0-53.0) % RDW (11.5-15.5) % APTT 81.5 H (22.0-30.0) sec Sodium (137-145) mmol/L Creatinine (0.66-1.25) mg/dL Glucose (74-99) mg/dL POC Glucose (mg/dL) 133 H 151 H (75-99) mg/dL 09/27/20 09/28/20 09/28/20 Range/Units 20:01 06:27 06:27 RBC 3.14 L (4.30-5.90) m/uL Hgb 8.0 L (13.0-17.5) gm/dL Hct 25.6 L (39.0-53.0) % RDW 18.2 H (11.5-15.5) % APTT (22.0-30.0) sec Sodium 134 L (137-145) mmol/L Creatinine 1.28 H (0.66-1.25) mg/dL Glucose 108 H (74-99) mg/dL POC Glucose (mg/dL) 174 H (75-99) mg/dL 09/28/20 Range/Units 07:03 RBC (4.30-5.90) m/uL Hgb (13.0-17.5) gm/dL Hct (39.0-53.0) % RDW (11.5-15.5) % APTT (22.0-30.0) sec Sodium (137-145) mmol/L Creatinine (0.66-1.25) mg/dL Glucose (74-99) mg/dL POC Glucose (mg/dL) 114 H (75-99) mg/dL Microbiology - Last 24 Hours (Table) 09/24/20 09:06 Blood Culture - Preliminary Blood No Growth after 72 hours Assessment and Plan Assessment: left lower extremity deep venous thrombosis Sepsis source likely urinary tract/genitourinary Hypotension Lactic acidosis Klebsiella and Pseudomonas UTI, both sensitive to Levaquin Bilateral lower extremity swelling left more than the right morbid obesity Likely sleep disorder breathing and sleep apnea to be evaluated further outpatient basis Type 2 diabetes mellitus Hypertension hypertensive cardiovascular disease Plan: IV heparin, will switch to oral direct anticoagulant in next 24 hours pending response monitor hemoglobin closely and urine for hematuria continue IV Levaquin for now follow-up onPan culture including urine and blood, continue Levaquin Repeat labs including CBC and chemistry in a.m. Duplex ultrasound the lower extremity results reviewed Further plan of care as per clinical response of the patient
[2020-09-28 11:39] LABS: Glucose,Whole Blood 129 mg/dL (75-99)
--- NOTE | 2020-09-28 13:05 | P.PN ---
Subjective Progress Note Date: 09/28/20 Principal diagnosis: DVT She was seen and examined sitting up in bed. Had an episode of bleeding after his procedure for heparin again was discontinued. It has been held for 24 hours and reinitiated today. He does not currently have any further bleeding in his Posada catheter. Hemoglobin is stable at 8.0. Objective - Vital Signs Vital signs: Vital Signs Temp 98.4 F 09/28/20 08:37 Pulse 87 09/28/20 08:37 Resp 15 09/28/20 08:37 BP 104/72 09/28/20 08:37 Pulse Ox 97 09/28/20 08:37 Intake & Output 09/27/20 09/28/20 09/28/20 18:59 06:59 18:59 Intake Total 1368.566 0 240 Output Total 2900 2050 850 Balance -1531.434 -2049 -610 Weight 120.7 kg Intake: Intake, IV Titration 228.566 0 0 Amount Heparin Sod,Pork in 0.45% 228.566 0 0 NaCl 25,000 unit In 0.45 % NaCl 1 250ml.bag @ 18 UNITS/KG/HR 21.33 mls/hr IV .[id number] [facility] Rx#: [id number] Oral 1140 240 Output: Urine 2900 2050 850 Other: Voiding Method Indwelling Catheter Indwelling Catheter Indwelling Catheter # Bowel Movements 1 - Exam General appearance: The patient is alert, oriented, in no acute distress. HET: Head is normocephalic and atraumatic. Neck: Supple without lymphadenopathy. Trachea midline. Heart: S1 S2. Regular rate and rhythm. Lungs: Crackles at lower bases Abdomen: Soft, nontender, nondistended. Extremities: Normal skin color and turgor. Bilateral lower extremity edema, right greater than left. Negative tenderness to. Nonpalpable Dorsalis Pedis Pulses. Multiphasic PT and DP Signal. Neurological: No focal deficits. Strength and sensation are grossly intact. - Labs CBC & Chem 7: 09/28/20 06:27 09/28/20 06:27 Labs: Abnormal Lab Results - Last 24 Hours (Table) 09/27/20 09/27/20 09/27/20 Range/Units 11:54 12:17 16:49 RBC (4.30-5.90) m/uL Hgb (13.0-17.5) gm/dL Hct (39.0-53.0) % RDW (11.5-15.5) % APTT 81.5 H (22.0-30.0) sec Sodium (137-145) mmol/L Creatinine (0.66-1.25) mg/dL Glucose (74-99) mg/dL POC Glucose (mg/dL) 133 H 151 H (75-99) mg/dL 09/27/20 09/28/20 09/28/20 Range/Units 20:01 06:27 06:27 RBC 3.14 L (4.30-5.90) m/uL Hgb 8.0 L (13.0-17.5) gm/dL Hct 25.6 L (39.0-53.0) % RDW 18.2 H (11.5-15.5) % APTT (22.0-30.0) sec Sodium 134 L (137-145) mmol/L Creatinine 1.28 H (0.66-1.25) mg/dL Glucose 108 H (74-99) mg/dL POC Glucose (mg/dL) 174 H (75-99) mg/dL 09/28/20 Range/Units 07:03 RBC (4.30-5.90) m/uL Hgb (13.0-17.5) gm/dL Hct (39.0-53.0) % RDW (11.5-15.5) % APTT (22.0-30.0) sec Sodium (137-145) mmol/L Creatinine (0.66-1.25) mg/dL Glucose (74-99) mg/dL POC Glucose (mg/dL) 114 H (75-99) mg/dL Microbiology - Last 24 Hours (Table) 09/24/20 09:06 Blood Culture - Preliminary Blood No Growth after 72 hours Assessment and Plan Assessment: 1. Right lower extremity deep vein thrombosis 2. Bilateral lower extremity edema 3. Hematuria 4. History of bladder cancer 5. Diabetes mellitus Plan: Continue anticoagulation, if any further signs of bleeding and anticoagulation needs to be discontinued and we will set patient up for an IVC filter placement. Thank you for this consultation, we will continue to follow The impression and plan of care has been dictated as directed. Dr. Cuppari I performed a history and examination of this patient, discussed the same with the dictator. I agree with the dictator's note ,documented as a scribe. Any a dditional findings or plans will be noted.
[2020-09-28 14:14] VITALS: BMI 36.1
--- NOTE | 2020-09-28 15:16 | P.PN ---
Subjective Progress Note Date: 09/28/20 Right popliteal DVT Acute UTI with cystitis from Pseudomonas, causing sepsis shock Likely recurrence of bladder tumor/cancer Acute blood loss anemia from severe recurrent hematuria 80-year-old man with medical history of kidney stones and bladder cancer, hypertension/hyperlipidemia/diabetes type 2/CAD presented for bloody urine. Patient said that starting yesterday he noticed that he started to have blood clots in his urine. Then he started to develop severe pain with urination as if he was trying to urinate a large kidney stone. The pain comes in cycles and feels accommodation of sharp with spasms. He took 2 extra strength Tylenol yesterday around 11 was able to sleep for proximally 4 hours before being woken up by the pain. is at bedside, notes that patient has been passing very t hick, large blood clots. Patient denies fevers, chills, nausea, vomiting, chest pain, syncope, presyncope, dyspnea, cough, abdominal pain, diarrhea, constipation. Reports dysuria and hematuria. Denies melena/hematochezia. Denies numbness/weakness of extremities. Patient also has venous insufficiency and has had increasing swelling of his right lower extremity. Patient is not on any blood thinners at home. 09/25/2020 Patient is seen and evaluated resting in bed; underwent venous Doppler which came back positive for DVT in popliteal vein; vascular surgery is consulted and not recommending IVC filter placement due to DVT being below-knee with low risk of traveling the lung; patient remains on IV Levaquin for UTI with urine culture growing Pseudomonas Hemoglobin down to 6.5 this morning; patient is status post transfusion with 2 units of packed RBCs POD #2 S/P TURBT; Urine culture growing Pseudomonas; Continue levofloxacin Urology on board and recommending to keep Posada in place, irrigate PRN. 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 Urine culture growing Pseudomonas. Underwent a venous duplex that showed evidence of a right popliteal DVT Urology on board and recommending to Continue levofloxacin, will need 7 days of abx -Keep Posada in place, irrigate PRN. 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 Patient's PTT is high patient is presently on IV heparin patient was a evaluated by vascular surgery for possible placement of IVC filter since patient was tolerating IV heparin IV filter was not being considered. Patient was monitored overnight with will hold off on IV heparin. Patient will eventually need to be transitioned to oral anticoagulation. 09/28/2020 Patient is seen and evaluated and follow-up with no acute overnight issues. Patient had been off of IV heparin although was resumed and will continue to monitor closely. Multiple medical consultations including vascular surgery, urology, pulmonary following. Hemoglobin is 8.0 today. No bleeding noted and the indwelling Posada catheter and will continue to monitor closely. If no issues occur patient will need oral anticoagulation and will need to verify cove rage. Patient is maintained on IV Levaquin and will continue as urine cultures are showing pseudomonas aeruginosa as with Klebsiella oxytoca. Will Place the patient on a beta gabriele of metoprolol and have discontinued Coreg. Patient will also need evaluation by PT/OT therapy as patient is weak and will likely require ECF upon discharge. Creatinine continues to be slightly elevated although trending down and is currently 1.28. Will repeat a.m. labs to monitor closely. Constitutional: Denied any fatigue denied any fever. Cardio vascular: denied any chest pain, palpitations Gastrointestinal denied any nausea vomiting Pulmonary: Denied any shortness of breath cough Neurologic denied any new focal deficits All inpatient medications were reviewed and appropriate changes in these medications as dictated in the interval history and assessment and plan. Objective - Vital Signs Vital signs: Vital Signs Temp 98.0 F 09/28/20 12:20 Pulse 78 09/28/20 12:20 Resp 16 09/28/20 12:20 BP 113/64 09/28/20 12:20 Pulse Ox 94 L 09/28/20 12:20 Intake & Output 09/27/20 09/28/2009/28/21 18:59 06:59 18:59 Intake Total 1368.566 0 480 Output Total 2902049 1250 Balance -1531.434 -2049 -770 Weight 120.7 kg Intake: Intake, IV Titration 228.566 0 0 Amount Heparin Sod,Pork in 0.45% 228.566 0 0 NaCl 25,000 unit In 0.45 % NaCl 1 250ml.bag @ 18 UNITS/KG/HR 21.33 mls/hr IV .[id number] [facility] Rx#: [id number] Oral 1140 480 Output: Urine 2900 2049 1250 Other: Voiding Method Indwelling Catheter Indwelling Catheter Indwelling Catheter # Bowel Movements 1 - Exam GENERAL: The patient is alert and oriented x3, not in any acute distress. Obese HEENT: Pupils are round and equally reacting to light. EOMI. No scleral icterus. No conjunctival pallor. Normocephalic, atraumatic. No pharyngeal erythema. No thyromegaly. CARDIOVASCULAR: S1 and S2 present. No murmurs, rubs, or gallops. PULMONARY: Chest is clear to auscultation, no wheezing or crackles. ABDOMEN: Soft, nontender, nondistended, normoactive bowel sounds. No palpable organomegaly. MUSCULOSKELETAL: No joint swelling or deformity. EXTREMITIES: No cyanosis, clubbing, bilateral pitting pedal edema significant edema of the right lower extremity NEUROLOGICAL: Gross neurological examination did not reveal any focal deficits. SKIN: No rashes. - Labs CBC & Chem 7: 09/28/20 06:27 09/28/20 06:27 Labs: Abnormal Lab Results - Last 24 Hours (Table) 09/27/20 09/27/20 09/28/20 Range/Units 16:49 20:01 06:27 RBC 3.14 L (4.30-5.90) m/uL Hgb 8.0 L (13.0-17.5) gm/dL Hct 25.6 L (39.0-53.0) % RDW 18.2 H (11.5-15.5) % Sodium (137-145) mmol/L Creatinine (0.66-1.25) mg/dL Glucose (74-99) mg/dL POC Glucose (mg/dL) 151 H 174 H (75-99) mg/dL 09/28/20 09/28/20 09/28/20 Range/Units 06:27 07:03 11:38 RBC (4.30-5.90) m/uL Hgb (13.0-17.5) gm/dL Hct (39.0-53.0) % RDW (11.5-15.5) % Sodium 134 L (137-145) mmol/L Creatinine 1.28 H (0.66-1.25) mg/dL Glucose 108 H (74-99) mg/dL POC Glucose (mg/dL) 114 H 129 H (75-99) mg/dL Microbiology - Last 24 Hours (Table) 09/24/20 09:06 Blood Culture - Preliminary Blood No Growth after 96 hours Assessment and Plan Assessment: -Gross hematuria; history of bladder cancer; evaluated by urology and underwent cystoscopy with clot evacuation with resection of recurrent bladder tumor, cystoscopy revealed bladder neck tumor versus prostate, IV heparin resumed in need to consider and verify coverage of oral anticoagulant, vascular surgery also following with the possibility of filter placement if continued bleeding is noted -Acute blood loss anemia: Secondary to hematuria, hemoglobin today is stable at 8.0 with no further bleeding noted, patient has received 2 units of PRBCs this hospitalization -Acute urinary tract infection with urine culture showing pseudomonas aeruginosa along with Klebsiella oxytoca and patient is maintaining an IV of ofloxacin and will continue -Acute DVT right lower extremity, patient had continued bleeding noted in the indwelling Posada catheter and heparin have been on hold and resume today -Diabetes mellitus type 2/ uncontrolled; patient remains on oral hypoglycemic therapy; continue to monitor Accu-Cheks before meals and at bedtime with insulin sliding scale -Hypertension; have changed to metoprolol and Coreg has been discontinued -Hyperlipidemia; continue with home dose of Lipitor -DVT prophylaxis; patient resumed on IV heparin -Full code Plan: Continue with current medication regimen and IV heparin has been resumed and will continue to monitor closely for any further bleeding. Vascular surgery along with urology and pulmonary following. Will need to verify coverage of oral anticoagulant. Patient continues on IV Levaquin and will continue. PT/OT to evaluate the patient as he continues to be weak and will likely require ECF for strength and mobility upon discharge. Will repeat a.m. labs.
[2020-09-28 16:57] LABS: Glucose,Whole Blood 127 mg/dL (75-99)
[2020-09-28] MEDS: LEVOFLOXACIN 250MG-D5W PMX 250 MG in DEXTROSE/WATER 1 50ML.BAG IVPB SCH (17:52)
[2020-09-28] MEDS: HEPARIN SOD,PORK IN 0.45% NACL 25,000 UNIT in 0.45% NACL 1 250ML.BAG IV SCH ×2 (17:52→19:58)
[2020-09-28] MEDS: HEPARIN SODIUM 1,000 UN/ML (10ML VL) IV PRN (17:56)
[2020-09-28 19:41] LABS: Glucose,Whole Blood 144 mg/dL (75-99)
[2020-09-28] MEDS: INSULIN DETEMIR (LEVEMIR) 100 UNIT/ML SYR SQ SCH (19:57)
[2020-09-28] MEDS: METOPROLOL TARTRATE 25 MG TAB PO SCH (19:57)
[2020-09-29 02:23] LABS: Glucose,Whole Blood 118 mg/dL (75-99)
[2020-09-29] MEDS: HEPARIN SOD,PORK IN 0.45% NACL 25,000 UNIT in 0.45% NACL 1 250ML.BAG IV SCH (03:15)
[2020-09-29 06:50] LABS: Glucose,Whole Blood 129 mg/dL (75-99)
[2020-09-29] MEDS: INSULIN ASPART (NovoLOG) 100 UNIT/ML VIAL SQ SCH ×7 (06:53→20:43)
[2020-09-29] MEDS: CYANOCOBALAMIN 500 MCG TAB PO SCH (08:16)
[2020-09-29] MEDS: CHOLECALCIFEROL 25 MCG (1000 IU) TABLET PO SCH (08:16)
[2020-09-29] MEDS: ATORVASTATIN 40 MG TAB PO SCH (08:16)
[2020-09-29] MEDS: METOPROLOL TARTRATE 25 MG TAB PO SCH ×2 (08:16→20:42)
[2020-09-29] MEDS: APIXABAN 2.5 MG TABLET PO SCH ×2 (10:02→20:42)
--- NOTE | 2020-09-29 10:47 | P.PN ---
Subjective Progress Note Date: 09/29/20 Principal diagnosis: left lower extremity deep venous thrombosis Sepsis source likely urinary tract/genitourinary Hypotension Lactic acidosis UTI Bilateral lower extremity swelling left more than the right Pseudomonas in the urine Type 2 diabetes mellitus Hypertension hypertensive cardiovascular disease 09/29/2020, patient seen eval examined during the rounds labs reviewed medications reviewed care plan discussed, respiratory status stable, patient has been tolerating heparin drip fairly well, we'll start small dose Eliquis 2.5 mg twice a day and DC the heparin, continue monitor observe closely 09/28/2020, patient seen eval examined during the rounds labs reviewed medications reviewed and discussed with RN it appears that anticoagulation was stopped due to hematuria however urine is clear urology cleared the patient to resume the anticoagulation will start the heparin again for deep venous thrombosis patient remains on broad-spectrum antibiotics for polymicrobial urinary tract infection 09/27/2020, patient seen eval examined during the rounds labs reviewed medications reviewed care plan discussed, respiratory status remains stable denies any chest pain, patient remains on heparin for the last 24 hours, tolerating well, no hematuria has been noted, hemoglobin remained stable 8.2, BUN/creatinine improved to 27 and 1.4, repeat urine culture came back positive for Pseudomonas and Klebsiella both sensitive to Levaquin which patient is on 09/26/2020, patient seen eval examined during the rounds labs reviewed medications reviewed awake and alert respiratory status is much improved breathing comfortably denies any chest pain, urine is clear now, repeat duplex ultrasound of the lower extremity continue show a left popliteal vein deep venous thrombosis so far patient has been not restarted on anticoagulant, however vascular surgery has evaluated, as per urology patient is stable to start IV heparin and subsequently can be switched to oral, urine continued to do be positive for the gram-negative rods, blood cultures have been negative, patient is on IV Levaquin tolerating well This is a pleasant 80-year-old male who was seen eval reexamined on medical floor due to drop in blood pressure and a spiking fever, noted that patient has a cystoscopy and transurethral resection of tumor bladder neck medium, due to gross hematuria and urinary retention with history of bladder cancer, postop day #1, patient spiked fever and dropped his blood pressure currently getting fluid boluses as per order just receive a dose of Cipro, urine culture were positive for Pseudomonas in urine on 09/21, patient has a Posada's catheter,, patient just have a CBC done with white cell count up to 16,200, hemoglobin 8.9 lactic acid went up to 6.8, patient is awake but appear pale, his past medical history significant for renal calculi, bladder cancer, hypertension hypertensive cardiovascular disease, type 2 diabetes mellitus, dyslipidemia he has a bilateral knee replacement also noted swelling of the left lower extremity significantly bigger than the right patient feels that he had it for significant period time Objective - Vital Signs Vital signs: Vital Signs Temp 98.0 F 09/29/20 08:14 Pulse 80 09/29/20 08:14 Resp 18 09/29/20 08:14 BP 109/66 09/29/20 08:14 Pulse Ox 95 09/29/20 08:14 Intake & Output 09/28/20 09/29/20 09/29/20 18:59 06:59 18:59 Intake Total 991.19 190.134 625.755 Output Total 1250 3050 400 Balance -258.81 -2859.866 225.755 Weight 120.7 kg 123.5 kg Intake: Intake, IV Titration 31.19 190.134 145.755 Amount Heparin Sod,Pork in 0.45% 31.19 190.134 145.755 NaCl 25,000 unit In 0.45 % NaCl 1 250ml.bag @ 18 UNITS/KG/HR 21.33 mls/hr IV .[id number] [facility] Rx#: [id number] Oral 960 480 Output: Urine 1250 3050 400 Other: Voiding Method Indwelling Catheter Indwelling Catheter Indwelling Catheter - Exam - Constitutional General appearance: cooperative, disheveled, mild distress, morbidly obese - EENT Eyes: EOMI, PERRLA Ears: bilateral: normal - Neck Neck: normal ROM Carotids: bilateral: upstroke normal Thyroid: bilateral: normal size - Respiratory Respiratory: bilateral: diminished - Cardiovascular Rhythm: regular Heart sounds: normal: S1, S2 - Gastrointestinal General gastrointestinal: decreased bowel sounds, distended, soft - Integumentary Bilateral lower extremity swelling left more than the right Integumentary: normal turgor - Neurologic Neurologic: CNII-XII intact - Musculoskeletal Musculoskeletal: gait normal, generalized weakness, strength equal bilaterally - Psychiatric Psychiatric: A&O x's 3, appropriate affect, intact judgment & insight - Labs CBC & Chem 7: 09/28/20 06:27 09/28/20 06:27 Labs: Abnormal Lab Results - Last 24 Hours (Table) 09/28/20 09/28/20 09/28/20 Range/Units 11:38 16:18 16:55 APTT 33.6 H (22.0-30.0) sec POC Glucose (mg/dL) 129 H 127 H (75-99) mg/dL 09/28/20 09/28/20 09/29/20 Range/Units 19:40 22:10 02:19 APTT 120.1 H* (22.0-30.0) sec POC Glucose (mg/dL) 144 H 118 H (75-99) mg/dL 09/29/20 Range/Units 06:48 APTT (22.0-30.0) sec POC Glucose (mg/dL) 129 H (75-99) mg/dL Microbiology - Last 24 Hours (Table) 09/24/20 09:06 Blood Culture - Preliminary Blood No Growth after 96 hours Assessment and Plan Assessment: left lower extremity deep venous thrombosis Sepsis source likely urinary tract/genitourinary Hypotension Lactic acidosis Klebsiella and Pseudomonas UTI, both sensitive to Levaquin Bilateral lower extremity swelling left more than the right morbid obesity Likely sleep disorder breathing and sleep apnea to be evaluated further outpatient basis Type 2 diabetes mellitus Hypertension hypertensive cardiovascular disease Plan: We will DC IV heparin, will switch to oral direct anticoagulant direct oral anticoagulant and Eliquis 2.5 mg twice a day monitor hemoglobin closely and urine for hematuria continue IV Levaquin for now follow-up onPan culture including urine and blood, continue Levaquin Repeat labs including CBC and chemistry in a.m. Duplex ultrasound the lower extremity results reviewed Further plan of care as per clinical response of the patient Time with Patient: Greater than 30
[2020-09-29 11:23] LABS: Calcium 8.6 mg/dL (8.4-10.2); Potassium 4.3 mmol/L (3.5-5.1)
[2020-09-29 11:41] LABS: Glucose,Whole Blood 109 mg/dL (75-99)
--- NOTE | 2020-09-29 13:52 | P.PN ---
Progress Note - Text Progress Note Date: 09/29/20 Presenting complaint: Low blood pressure Hospital course 80-year-old man with medical history of kidney stones and bladder cancer, hypertension/hyperlipidemia/diabetes type 2/CAD presented for bloody urine. Patient said that starting yesterday he noticed that he started to have blood clots in his urine. Then he started to develop severe pain with urination as if he was trying to urinate a large kidney stone. The pain comes in cycles and feels accommodation of sharp with spasms. He took 2 extra strength Tylenol yesterday around 11 was able to sleep for proximally 4 hours before being woken up by the pain. is at bedside, notes that patient has been passing very thick, large blood clots. Patient denies fevers, chills, nausea, vomiting, chest pain, syncope, presyncope, dyspnea, cough, abdominal pain, diarrhea, constipation. Reports dysuria and hematuria. Denies melena/hematochezia. Denies numbness/weakness of extremities. Patient also has venous insufficiency and has had increasing swelling of his right lower extremity. Patient is not on any blood thinners at home. Patient has history of bladder cancer treated with resection by Dr. Marylou Bowser 3 years ago. Placed on BCG intravesical therapy. A follow-up cystoscopy r showed a small recurrence-that was removed. Computed tomography scan of the abdomen/pelvis demonstrated moderate right- sided hydrouretero nephrosis, left-sided hydronephrosis which is mild. There is also concern on imaging for an obstructive basket the UVJ. Ultrasound has confirmed right below-knee DVT. September 23: Bladder tumor resected. Patient was septic with hypotensive shock pseudomonas aeruginosa UTI. Started IV Levaquin. Patient did get some bleeding from IV heparin, though it was noted that the PTT was high. Today: Sitting up in a chair. Posada catheter with clear urine. This morning Dr. Gomez from pulmonary did switch the patient over to eliquis. Oral intake fair. Review of systems: Was done for constitutional, cardiovascular, GI, pulmonary. relevant finding as above Active Medications Acetaminophen (Acetaminophen Tab 325 Mg Tab) 650 mg PO Q6HR PRN PRN Reason: Mild Pain or Fever > 100.5 Last Admin: 09/24/20 23:08 Dose: 650 mg Documented by: Apixaban (Apixaban 2.5 Mg Tablet) 2.5 mg PO BID [facility] Last Admin: 09/29/20 10:02 Dose: 2.5 mg Documented by: Atorvastatin Calcium (Atorvastatin 40 Mg Tab) 40 mg PO DAILY [facility] Last Admin: 09/29/20 08:16 Dose: 40 mg Documented by: Bisacodyl (Bisacodyl 5 Mg Tablet.Dr) 5 mg PO DAILY PRN PRN Reason: Constipation Cholecalciferol (Cholecalciferol 25 Mcg (1000 Iu) Tablet) 125 mcg PO DAILY [facility] Last Admin: 09/29/20 08:16 Dose: 125 mcg Documented by: Cyanocobalamin (Cyanocobalamin 500 Mcg Tab) 1,000 mcg PO DAILY [facility] Last Admin: 09/29/20 08:16 Dose: 1,000 mcg Documented by: Docusate Sodium (Docusate 100 Mg Cap) 100 mg PO BID PRN PRN Reason: Constipation Last Admin: 09/24/20 04:20 Dose: 100 mg Documented by: Insulin Aspart (Insulin Aspart (Novolog) 100 Unit/Ml Vial) 5 unit SQ AC-SUPPER [facility] Last Admin: 09/28/20 18:00 Dose: 5 unit Documented by: Insulin Aspart (Insulin Aspart (Novolog) 100 Unit/Ml Vial) 10 unit SQ AC-BRKFST [facility] Last Admin: 09/29/20 07:07 Dose: 10 unit Documented by: Insulin Aspart (Insulin Aspart (Novolog) 100 Unit/Ml Vial) 0 unit SQ [facility]; Protocol Last Admin: 09/29/20 11:48 Dose: Not Given Documented by: Insulin Aspart (Insulin Aspart (Novolog) 100 Unit/Ml Vial) 10 unit SQ AC-LUNCH [facility] Last Admin: 09/29/20 11:48 Dose: Not Given Documented by: Insulin Detemir (Insulin Detemir (Levemir) 100 Unit/Ml Syr) 21 unit SQ HS [facility] Last Admin: 09/28/20 19:57 Dose: 21 unit Documented by: Levofloxacin (Levofloxacin 250 Mg Tab) 250 mg PO Q24H [facility] Metoprolol Tartrate (Metoprolol Tartrate 25 Mg Tab) 25 mg PO BID [facility] Last Admin: 09/29/20 08:16 Dose: 25 mg Documented by: Morphine Sulfate (Morphine Sulfate 4 Mg/Ml Syringe) 4 mg IV Q4HR PRN PRN Reason: Severe Pain Last Admin: 09/27/20 18:00 Dose: 4 mg Documented by: Naloxone HCl (Naloxone 0.4 Mg/Ml 1 Ml Vial) 0.2 mg IV Q2M PRN PRN Reason: Opioid Reversal Ondansetron HCl (Ondansetron 4 Mg/2 Ml Vial) 4 mg IVP Q8HR PRN PRN Reason: Nausea And Vomiting On examination: VITAL SIGNS: 97.9, 71, 16, 117/54, 98% on room air GENERAL APPEARANCE: Sitting up that is clear, comfortable HEENT: Normal external appearance of nose and ear. Oral cavity normal. Hard of hearing EYES: Pupils equal. Conjunctiva pale NECK: JVD not raised. Mass not palpable. RESPIRATORY: Respiratory effort normal. Lungs decreased breath sounds CARDIOVASCULAR: First and second sounds normal. No edema. ABDOMEN: Soft. Liver and spleen not palpable. No tenderness. No mass palpable. Posada catheter -clear urine PSYCHIATRY: Alert and oriented x3. Mood and affect normal. INVESTIGATIONS, reviewed in the clinical context: September 29: Potassium 4.3 creatinine 1.28 Urine culture: Pseudomonas aeruginosa, Klebsiella oxytoca September 24: WBC 16.2 hemoglobin 8.9 platelets 238 lactic acid 6.8. 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 Santiago-3 years ago and was treated with BCG. September 23: Bladder tumor resected by Dr. Reyna. Follow-up with urology -Acute hematuria secondary to UTI and bladder cancer resection and some contribution from anticoagulation.-Urine currently cleared up Follow clinically -Acute DVT in the right leg, below the knee IV heparin changed over to eliquis started this morning. -Diabetes mellitus type 2, on oral hypoglycemic, uncontrolled with hyperglycemia Follow Accu-Cheks -AICD -Primary osteoarthritis -Coronary artery disease with prior ND Continue with Coreg -Hyperlipidemia Continue with Lipitor -Essential hypertension On Cozaar and beta gabriele -Acute blood loss anemia from severe recurrent hematuria from bladder tumor Patient received 2 units of PRBC -Acute UTI with cystitis from Pseudomonas aeruginosa and Klebsiella oxytoca, causing sepsis shock IV Levaquin. Fluid bolus. Changed over to by mouth Levaquin Discussed with Dr. chawla from urology. Plan is to DC the Posada catheter today and see how the patient does. IV heparin discontinued. Started eliquis. It doesn't for next 24 hours hopefully can be discharged to ECF. Discussed with the nurse. Total time spent today was about 40 minutes with over 25 minutes of discussion.
--- NOTE | 2020-09-29 15:08 | P.PN ---
Subjective Progress Note Date: 09/29/20 Principal diagnosis: DVT Patient was seen and examined sitting up at the bedside. His Posada catheter was discontinued today. He's had no further bleeding. His heparin drip was discontinued and he was started on Eliquis. He denies any pain in his lower extremities, shortness of breath or chest pain. Objective - Vital Signs Vital signs: Vital Signs Temp 97.9 F 09/29/20 11:44 Pulse 71 09/29/20 11:44 Resp 16 09/29/20 11:44 BP 117/54 09/29/20 11:44 Pulse Ox 98 09/29/20 11:44 Intake & Output 09/28/20 09/29/20 09/29/20 18:59 06:59 18:59 Intake Total 991.19 190.134 625.755 Output Total 1250 3050 400 Balance -258.81 -2859.866 225.755 Weight 120.7 kg 123.5 kg Intake: Intake, IV Titration 31.19 190.134 145.755 Amount Heparin Sod,Pork in 0.45% 31.19 190.134 145.755 NaCl 25,000 unit In 0.45 % NaCl 1 250ml.bag @ 18 UNITS/KG/HR 21.33 mls/hr IV .[id number] [facility] Rx#: [id number] Oral 960 480 Output: Urine 1250 3050 400 Other: Voiding Method Indwelling Catheter Indwelling Catheter Indwelling Catheter - Exam General appearance: The patient is alert, oriented, in no acute distress. HET: Head is normocephalic and atraumatic. Neck: Supple without lymphadenopathy. Trachea midline. Heart: S1 S2. Regular rate and rhythm. Lungs: Crackles at lower bases Abdomen: Soft, nontender, nondistended. Extremities: Normal skin color and turgor. Bilateral lower extremity edema, right greater than left. Negative tenderness to. Nonpalpable Dorsalis Pedis Pulses. Multiphasic PT and DP Signal. Neurological: No focal deficits. Strength and sensation are grossly intact. - Labs CBC & Chem 7: 09/28/20 06:27 09/29/20 09:31 Labs: Abnormal Lab Results - Last 24 Hours (Table) 09/28/20 09/28/20 09/28/20 Range/Units 16:18 16:55 19:40 APTT 33.6 H (22.0-30.0) sec Sodium (137-145) mmol/L Creatinine (0.66-1.25) mg/dL Glucose (74-99) mg/dL POC Glucose (mg/dL) 127 H 144 H (75-99) mg/dL 09/28/20 09/29/20 09/29/20 Range/Units 22:10 02:19 06:48 APTT 120.1 H* (22.0-30.0) sec Sodium (137-145) mmol/L Creatinine (0.66-1.25) mg/dL Glucose (74-99) mg/dL POC Glucose (mg/dL) 118 H 129 H (75-99) mg/dL 09/29/20 09/29/20 09/29/20 Range/Units 09:31 09:31 11:39 APTT 62.5 H (22.0-30.0) sec Sodium 136 L (137-145) mmol/L Creatinine 1.28 H (0.66-1.25) mg/dL Glucose 121 H (74-99) mg/dL POC Glucose (mg/dL) 109 H (75-99) mg/dL Microbiology - Last 24 Hours (Table) 09/24/20 09:06 Blood Culture - Preliminary Blood No Growth after 120 hours Assessment and Plan Assessment: 1. Right lower extremity deep vein thrombosis 2. Bilateral lower extremity edema 3. Hematuria 4. History of bladder cancer 5. Diabetes mellitus Plan: Continue anticoagulation. Discussed with patient to keep lower extremities elevated when sitting, recommend compression stockings or Homar wraps to bilateral lower extremities to help with swelling. Patient may follow-up with vascular surgery as needed. If patient has further episodes of bleeding while on his anticoagulation, will need follow-up for IVC filter placement Thank you for this consultation, we will sign off at this time. The impression and plan of care has been dictated as directed. Dr. Posada I performed a history and examination of this patient, discussed the same with the dictator. I agree with the dictator's note ,documented as a scribe. Any additional findings or plans will be noted.
--- NOTE | 2020-09-29 15:46 | P.PN ---
Subjective Progress Note Date: 09/29/20 Urine remains clear on anticogulation , denies any abdominal pain or dysuria Objective - Vital Signs Vital signs: Vital Signs Temp 97.9 F 09/29/20 11:44 Pulse 71 09/29/20 13:44 Resp 16 09/29/20 13:44 BP 117/54 09/29/20 11:44 Pulse Ox 98 09/29/20 11:44 Intake & Output 09/28/20 09/29/20 09/29/20 18:59 06:59 18:59 Intake Total 991.19 190.134 865.755 Output Total 1250 3050 400 Balance -258.81 -2859.866 465.755 Weight 120.7 kg 123.5 kg Intake: Intake, IV Titration 31.19 190.134 145.755 Amount Heparin Sod,Pork in 0.45% 31.19 190.134 145.755 NaCl 25,000 unit In 0.45 % NaCl 1 250ml.bag @ 18 UNITS/KG/HR 21.33 mls/hr IV .[id number] [facility] Rx#: [id number] Oral 960 720 Output: Urine 1250 3050 400 Other: Voiding Method Indwelling Catheter Indwelling Catheter Urinal - Constitutional General appearance: Present: no acute distress - Gastrointestinal General gastrointestinal: Present: soft. Absent: distended - Psychiatric Psychiatric: Present: A&O x's 3 - Labs CBC & Chem 7: 09/28/20 06:27 09/29/20 09:31 Labs: Abnormal Lab Results - Last 24 Hours (Table) 09/28/20 09/28/20 09/28/20 Range/Units 16:18 16:55 19:40 APTT 33.6 H (22.0-30.0) sec Sodium (137-145) mmol/L Creatinine (0.66-1.25) mg/dL Glucose (74-99) mg/dL POC Glucose (mg/dL) 127 H 144 H (75-99) mg/dL 09/28/20 09/29/20 09/29/20 Range/Units 22:10 02:19 06:48 APTT 120.1 H* (22.0-30.0) sec Sodium (137-145) mmol/L Creatinine (0.66-1.25) mg/dL Glucose (74-99) mg/dL POC Glucose (mg/dL) 118 H 129 H (75-99) mg/dL 09/29/20 09/29/20 09/29/20 Range/Units 09:31 09:31 11:39 APTT 62.5 H (22.0-30.0) sec Sodium 136 L (137-145) mmol/L Creatinine 1.28 H (0.66-1.25) mg/dL Glucose 121 H (74-99) mg/dL POC Glucose (mg/dL) 109 H (75-99) mg/dL Microbiology - Last 24 Hours (Table) 09/24/20 09:06 Blood Culture - Preliminary Blood No Growth after 120 hours Assessment and Plan Assessment: 80 yo male POD #6 S/P TURBT, patient became septic postoperatively. Urine cultur e growing Pseudomonas. Underwent a venous duplex that showed evidence of a right popliteal DVT -Continue levofloxacin, will need 7 days of abx -Follow up on final pathology -Okay to discontinue Posada from urology standpoint, we'll need a PVR after patient voids -Can follow-up as an outpatient with Dr. Deshpande for pathology review
[2020-09-29 16:43] LABS: Glucose,Whole Blood 115 mg/dL (75-99)
[2020-09-29] MEDS: LEVOFLOXACIN 250 MG TAB PO SCH (17:19)
[2020-09-29 20:22] LABS: Glucose,Whole Blood 155 mg/dL (75-99)
[2020-09-29] MEDS: INSULIN DETEMIR (LEVEMIR) 100 UNIT/ML SYR SQ SCH (20:43)
[2020-09-30 06:53] LABS: Glucose,Whole Blood 113 mg/dL (75-99)
[2020-09-30] MEDS: INSULIN ASPART (NovoLOG) 100 UNIT/ML VIAL SQ SCH ×7 (06:56→21:04)
[2020-09-30 07:46] LABS: Anisocytosis Slight; Basophils % (A) 0 %; Eosinophils # (A) 0.2 k/uL (0-0.7); Eosinophils % (A) 3 %; HGB 7.7 gm/dL (13.0-17.5); Hypochromasia Moderate; Lymphocytes % (A) 15 %; MCH 26.1 pg (25.0-35.0); MCHC 32.3 g/dL (31.0-37.0); MCV 80.8 fL (80.0-100.0); Mean Platelet Volume 6.6; Microcytosis Slight; Monocytes # (A) 0.5 k/uL (0-1.0); Monocytes % (A) 8 %; Neutrophils # (A) 4.5 k/uL (1.3-7.7); Neutrophils % (A) 72 %; Platelet Count 176 k/uL (150-450); RBC 2.97 m/uL (4.30-5.90); RDW 17.9 % (11.5-15.5); WBC 6.3 k/uL (3.8-10.6)
[2020-09-30] MEDS: CYANOCOBALAMIN 500 MCG TAB PO SCH (09:14)
[2020-09-30] MEDS: METOPROLOL TARTRATE 25 MG TAB PO SCH ×2 (09:14→20:47)
[2020-09-30] MEDS: ATORVASTATIN 40 MG TAB PO SCH (09:14)
[2020-09-30] MEDS: CHOLECALCIFEROL 25 MCG (1000 IU) TABLET PO SCH (09:14)
[2020-09-30] MEDS: APIXABAN 2.5 MG TABLET PO SCH ×2 (09:14→20:47)
--- NOTE | 2020-09-30 10:52 | P.PN ---
Subjective Progress Note Date: 09/30/20 Principal diagnosis: left lower extremity deep venous thrombosis Sepsis source likely urinary tract/genitourinary Hypotension Lactic acidosis UTI Bilateral lower extremity swelling left more than the right Pseudomonas in the urine Type 2 diabetes mellitus Hypertension hypertensive cardiovascular disease 09/30/2020, patient seen eval examined during the rounds labs reviewed medications reviewed care plan discussed, respiratory status remains stable off and on oxygen, tolerating direct oral anticoagulant well heparin has been off, 09/29/2020, patient seen eval examined during the rounds labs reviewed medications reviewed care plan discussed, respiratory status stable, patient has been tolerating heparin drip fairly well, we'll start small dose Eliquis 2.5 mg twice a day and DC the heparin, continue monitor observe closely 09/28/2020, patient seen eval examined during the rounds labs reviewed medications reviewed and discussed with RN it appears that anticoagulation was stopped due to hematuria however urine is clear urology cleared the patient to resume the anticoagulation will start the heparin again for deep venous thrombosis patient remains on broad-spectrum antibiotics for polymicrobial urinary tract infection 09/27/2020, patient seen eval examined during the rounds labs reviewed medications reviewed care plan discussed, respiratory status remains stable denies any chest pain, patient remains on heparin for the last 24 hours, tolerating well, no hematuria has been noted, hemoglobin remained stable 8.2, BUN/creatinine improved to 27 and 1.4, repeat urine culture came back positive for Pseudomonas and Klebsiella both sensitive to Levaquin which patient is on 09/26/2020, patient seen eval examined during the rounds labs reviewed medications reviewed awake and alert respiratory status is much improved breathing comfortably denies any chest pain, urine is clear now, repeat duplex ultrasound of the lower extremity continue show a left popliteal vein deep venous thrombosis so far patient has been not restarted on anticoagulant, however vascular surgery has evaluated, as per urology patient is stable to start IV heparin and subsequently can be switched to oral, urine continued to do be positive for the gram-negative rods, blood cultures have been negative, patient is on IV Levaquin tolerating well This is a pleasant 80-year-old male who was seen eval reexamined on medical floor due to drop in blood pressure and a spiking fever, noted that patient has a cystoscopy and transurethral resection of tumor bladder neck medium, due to gross hematuria and urinary retention with history of bladder cancer, postop day #1, patient spiked fever and dropped his blood pressure currently getting fluid boluses as per order just receive a dose of Cipro, urine culture were positive for Pseudomonas in urine on 09/21, patient has a Posada's catheter,, patient just have a CBC done with white cell count up to 16,200, hemoglobin 8.9 lactic acid w ent up to 6.8, patient is awake but appear pale, his past medical history significant for renal calculi, bladder cancer, hypertension hypertensive cardiovascular disease, type 2 diabetes mellitus, dyslipidemia he has a bilateral knee replacement also noted swelling of the left lower extremity significantly bigger than the right patient feels that he had it for significant period time Objective - Vital Signs Vital signs: Vital Signs Temp 98.1 F 09/30/20 08:00 Pulse 80 09/30/20 08:00 Resp 18 09/30/20 08:00 BP 105/66 09/30/20 08:00 Pulse Ox 95 09/30/20 08:00 Intake & Output 09/29/20 09/30/20 09/30/20 18:59 06:59 18:59 Intake Total 1105.755 240 240 Output Total 475 Balance 630.755 240 240 Weight 120 kg Intake: Intake, IV Titration 145.755 Amount Heparin Sod,Pork in 0.45% 145.755 NaCl 25,000 unit In 0.45 % NaCl 1 250ml.bag @ 18 UNITS/KG/HR 21.33 mls/hr IV .[id number] [facility] Rx#: [id number] Oral 960 240 240 Output: Urine 475 Other: Voiding Method Urinal Toilet Toilet Urinal Urinal Incontinent Incontinent # Voids 1 # Bowel Movements 1 - Exam - Constitutional General appearance: cooperative, disheveled, mild distress, morbidly obese - EENT Eyes: EOMI, PERRLA Ears: bilateral: normal - Neck Neck: normal ROM Carotids: bilateral: upstroke normal Thyroid: bilateral: normal size - Respiratory Respiratory: bilateral: diminished - Cardiovascular Rhythm: regular Heart sounds: normal: S1, S2 - Gastrointestinal General gastrointestinal: decreased bowel sounds, distended, soft - Integumentary Bilateral lower extremity swelling left more than the right Integumentary: normal turgor - Neurologic Neurologic: CNII-XII intact - Musculoskeletal Musculoskeletal: gait normal, generalized weakness, strength equal bilaterally - Psychiatric Psychiatric: A&O x's 3, appropriate affect, intact judgment & insight - Labs CBC & Chem 7: 09/30/20 07:02 09/29/20 09:31 Labs: Abnormal Lab Results - Last 24 Hours (Table) 09/29/20 09/29/20 09/29/20 Range/Units 09:31 09:31 11:39 RBC (4.30-5.90) m/uL Hgb (13.0-17.5) gm/dL Hct (39.0-53.0) % RDW (11.5-15.5) % APTT 62.5 H (22.0-30.0) sec Sodium 136 L (137-145) mmol/L Creatinine 1.28 H (0.66-1.25) mg/dL Glucose 121 H (74-99) mg/dL POC Glucose (mg/dL) 109 H (75-99) mg/dL 09/29/20 09/29/20 09/30/20 Range/Units 16:41 20:21 06:51 RBC (4.30-5.90) m/uL Hgb (13.0-17.5) gm/dL Hct (39.0-53.0) % RDW (11.5-15.5) % APTT (22.0-30.0) sec Sodium (137-145) mmol/L Creatinine (0.66-1.25) mg/dL Glucose (74-99) mg/dL POC Glucose (mg/dL) 115 H 155 H 113 H (75-99) mg/dL 09/30/20 Range/Units 07:02 RBC 2.97 L (4.30-5.90) m/uL Hgb 7.7 L (13.0-17.5) gm/dL Hct 24.0 L (39.0-53.0) % RDW 17.9 H (11.5-15.5) % APTT (22.0-30.0) sec Sodium (137-145) mmol/L Creatinine (0.66-1.25) mg/dL Glucose (74-99) mg/dL POC Glucose (mg/dL) (75-99) mg/dL Microbiology - Last 24 Hours (Table) 05/28/21 09:06 Blood Culture - Preliminary Blood No Growth after 120 hours Assessment and Plan Assessment: left lower extremity deep venous thrombosis Sepsis source likely urinary tract/genitourinary Hypotension Lactic acidosis Klebsiella and Pseudomonas UTI, both sensitive to Levaquin now switched to oral Bilateral lower extremity swelling left more than the right morbid obesity Likely sleep disorder breathing and sleep apnea to be evaluated further outpatient basis Type 2 diabetes mellitus Hypertension hypertensive cardiovascular disease Plan: observe off of IV heparin, continue oral direct anticoagulant direct oral anticoagulant and Eliquis 2.5 mg twice a day monitor hemoglobin closely and urine for hematuria continue IV Levaquin for now follow-up onPan culture including urine and blood, continue Levaquin Repeat labs including CBC and chemistry in a.m. Duplex ultrasound the lower extremity results reviewed Further plan of care as per clinical response of the patient Time with Patient: Greater than 30
[2020-09-30 12:11] LABS: Glucose,Whole Blood 107 mg/dL (75-99)
--- NOTE | 2020-09-30 12:56 | P.PN ---
Subjective Progress Note Date: 09/30/20 Posada catheter removed yesterday, PVR is 10 mL's. Denies any dysuria, gross hematuria Objective - Vital Signs Vital signs: Vital Signs Temp 98.1 F 09/30/20 12:00 Pulse 71 09/30/20 12:00 Resp 16 09/30/20 12:00 BP 138/60 09/30/20 12:00 Pulse Ox 94 L 09/30/20 12:00 Intake & Output 09/29/20 09/30/20 09/30/20 18:59 06:59 18:59 Intake Total 1105.755 240 240 Output Total 475 Balance 630.755 240 240 Weight 120 kg Intake: Intake, IV Titration 145.755 Amount Heparin Sod,Pork in 0.45% 145.755 NaCl 25,000 unit In 0.45 % NaCl 1 250ml.bag @ 18 UNITS/KG/HR 21.33 mls/hr IV .[id number] [facility] Rx#: [id number] Oral 960 240 240 Output: Urine 475 Other: Voiding Method Urinal Toilet Toilet Urinal Urinal Incontinent Incontinent # Voids 1 # Bowel Movements 1 - Constitutional General appearance: Present: no acute distress - Gastrointestinal General gastrointestinal: Present: soft. Absent: distended - Psychiatric Psychiatric: Present: A&O x's 3 - Labs CBC & Chem 7: 09/30/20 07:02 09/29/20 09:31 Labs: Abnormal Lab Results - Last 24 Hours (Table) 09/29/20 09/29/20 09/30/20 Range/Units 16:41 20:21 06:51 RBC (4.30-5.90) m/uL Hgb (13.0-17.5) gm/dL Hct (39.0-53.0) % RDW (11.5-15.5) % POC Glucose (mg/dL) 115 H 155 H 113 H (75-99) mg/dL 09/30/20 09/30/20 Range/Units 07:02 12:10 RBC 2.97 L (4.30-5.90) m/uL Hgb 7.7 L (13.0-17.5) gm/dL Hct 24.0 L (39.0-53.0) % RDW 17.9 H (11.5-15.5) % POC Glucose (mg/dL) 107 H (75-99) mg/dL Microbiology - Last 24 Hours (Table) 09/24/20 09:06 Blood Culture - Final Blood No Growth after 144 hours Assessment and Plan Assessment: 80 yo male POD #7 S/P TURBT, patient became septic postoperatively. Urine culture growing Pseudomonas. Underwent a venous duplex that showed evidence of a right popliteal DVT. Currently on anticoagulation, Posada removed yesterday. PVR Within normal limits. No evidence of gross hematuria this a.m. -Okay for discharge from urology standpoint -Can follow-up as an outpatient with Dr. Deshpande for pathology review
--- NOTE | 2020-09-30 14:36 | P.DS ---
Providers Date of admission: 09/22/20 13:21 Expected date of discharge: 09/30/20 Attending physician: Yosvany Leonard Consults: 09/21/20 16:35 Consult Physician Stat Consulting Provider: Jarrett Raman Consult Reason/Comments: Moderate R Hydronephrosis with obstructing mass Do you want consulting provider notified?: Yes 09/21/20 16:37 Consult Physician Urgent Consulting Provider: Jarrett Raman Consult Reason/Comments: Hematuria Do you want consulting provider notified?: Yes 09/24/20 08:58 Consult Physician Stat Consulting Provider: Massimo Gomez Consult Reason/Comments: Sepsis Do you want consulting provider notified?: Already Contacted Primary care physician: Rob Cruz MD Hospital Course: Hospital course 80-year-old man with medical history of kidney stones and bladder cancer, hypertension/hyperlipidemia/diabetes type 2/CAD presented for bloody urine. Patient said that starting yesterday he noticed that he started to have blood clots in his urine. Then he started to develop severe pain with urination as if he was trying to urinate . The pain comes in cycles and feels accommodation of sharp with spasms. He took 2 extra strength Tylenol yesterday around 11 was able to sleep for proximally 4 hours before being woken up by the pain. is at bedside, notes that patient has been passing very thick, large blood clots. Patient denies fevers, chills, nausea, vomiting, chest pain, syncope, presyncope, dyspnea, cough, abdominal pain, diarrhea, constipation. Reports dysuria and hematuria. Denies melena/hematochezia. Denies numbness/weakness of extremities. Patient also has venous insufficiency and has had increasing swelling of his right lower extremity. Patient is not on any blood thinners at home. Patient has history of bladder cancer treated with resection 3 years ago. Placed on BCG intravesical therapy. A follow-up cystoscopy r showed a small recurrence-that was removed. Computed tomography scan of the abdomen/pelvis demonstrated moderate right- sided hydrouretero nephrosis, left-sided hydronephrosis which is mild. There is also concern on imaging for an obstructive at the [facility]. Ultrasound has confirmed right below-knee DVT. September 23: Bladder tumor resected. Patient was septic with hypotensive shock pseudomonas aeruginosa UTI. Started IV Levaquin. Patient did get some bleeding from IV heparin, though it was noted that the PTT was high. Swished over to eliquis. Tolerated well. Posada catheter removed. PVR 10 Today: Comfortable. Making urine. No blood. We'll begin to rehab today. Care was discussed with the patient and family at the bedside. Also discussed the supply chain planner. Discussion and discharge planning more than 35 minutes Consultation: Dr. Oquendo from urology Dr. Gomez from pulmonary Dr. Posada from vascular On examination: VITAL SIGNS: 98.1, 71, 16, 1 38 x 60, 94% room air GENERAL APPEARANCE: He planning in bed comfortable HEENT: Normal external appearance of nose and ear. Oral cavity normal. Hard of hearing EYES: Pupils equal. Conjunctiva pale NECK: JVD not raised. Mass not palpable. RESPIRATORY: Respiratory effort normal. Lungs decreased breath sounds CARDIOVASCULAR: First and second sounds normal. No edema. ABDOMEN: Soft. Liver and spleen not palpable. No tenderness. No mass palpable. PSYCHIATRY: Alert and oriented x3. Mood and affect normal. INVESTIGATIONS, reviewed in the clinical context: September 30: Hemoglobin 7.7 September 29: Potassium 4.3 creatinine 1.28 Urine culture: Pseudomonas aeruginosa, Klebsiella oxytoca September 24: WBC 16.2 hemoglobin 8.9 platelets 238 lactic acid 6.8. 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 Santiago-3 years ago and was treated with BCG. September 23: Bladder tumor resected by Dr. Reyna. Follow-up with him in the office. -Acute hematuria secondary to UTI and bladder cancer resection and some contribution from anticoagulation.-Urine cleared up Follow clinically -Acute DVT in the right leg, below the knee IV heparin changed over to eliquis -Diabetes mellitus type 2, on oral hypoglycemic, uncontrolled with hyperglycemia Follow Accu-Cheks -AICD -Primary osteoarthritis -Coronary artery disease with prior [place] Continue with Coreg, baby aspirin resumed -Hyperlipidemia Continue with Lipitor -Essential hypertension On Cozaar [discontinued] and beta gabriele -Acute blood loss anemia from severe recurrent hematuria from bladder tumor Patient received 2 units of PRBC -Acute UTI with cystitis from Pseudomonas aeruginosa and Klebsiella oxytoca, causing sepsis shock IV Levaquin. Fluid bolus. Changed over to by mouth Levaquin Disposition: [facility] Plan - Discharge Summary Discharge Rx Participant: No New Discharge Prescriptions: New Apixaban [Eliquis] 2.5 mg PO BID tablet Levofloxacin [Levaquin] 250 mg PO Q24H #7 tab INSULIN ASPART (NovoLOG) [NovoLOG (formulary)] 0 unit SQ ACHS vial Acetaminophen Tab [Tylenol] 650 mg PO Q6HR PRN tab PRN Reason: Mild Pain Or Fever > 100.5 Famotidine [Pepcid] 20 mg PO BID #1 tablet Continue Aspirin 81 mg PO DAILY Carvedilol [Coreg] 12.5 mg PO BID metFORMIN HCL 1,000 mg PO BID Insulin Glargine,Hum.rec.anlog [Lantus Solostar] 21 unit SQ HS Atorvastatin [Lipitor] 40 mg PO DAILY Cholecalciferol [Vitamin D3 (25 Mcg = 1000 Iu)] 125 mcg PO DAILY Cyanocobalamin (Vitamin B-12) [Vitamin B-12] 1,000 mcg PO DAILY Changed Insulin Lispro [humaLOG Kwikpen] 7 unit SQ AC-TID #0 Discontinued Potassium Chloride [Klor-Con 10] 10 meq PO BID Insulin Lispro [humaLOG Kwikpen] 10 unit SQ AC-BRKFST Furosemide 20 mg PO DAILY Losartan [Cozaar] 25 mg PO DAILY Insulin Lispro [humaLOG Kwikpen] 5 unit SQ AC-SUPPER Discharge Medication List Aspirin 81 mg PO DAILY 08/31/14 [History] Atorvastatin [Lipitor] 40 mg PO DAILY 08/31/14 [History] Carvedilol [Coreg] 12.5 mg PO BID 08/31/14 [History] Insulin Glargine,Hum.rec.anlog [Lantus Solostar] 21 unit SQ HS 08/31/14 [History] metFORMIN HCL 1,000 mg PO BID 08/31/14 [History] Cholecalciferol [Vitamin D3 (25 Mcg = 1000 Iu)] 125 mcg PO DAILY 08/11/16 [History] Cyanocobalamin (Vitamin B-12) [Vitamin B-12] 1,000 mcg PO DAILY 08/11/16 [History] Acetaminophen Tab [Tylenol] 650 mg PO Q6HR PRN tab 09/30/20 [Rx] Apixaban [Eliquis] 2.5 mg PO BID tablet 09/30/20 [Rx] Famotidine [Pepcid] 20 mg PO BID #1 tablet 09/30/20 [Rx] INSULIN ASPART (NovoLOG) [NovoLOG (formulary)] 0 unit SQ ACHS vial 09/30/20 [Rx] Insulin Lispro [humaLOG Kwikpen] 7 unit SQ AC-TID #0 09/30/20 [Rx] Levofloxacin [Levaquin] 250 mg PO Q24H #7 tab 09/30/20 [Rx] Follow up Appointment(s)/Referral(s): Rob Cruz MD [Primary Care Provider] - 1-2 days Taya Posada DO [STAFF PHYSICIAN] - 3 Weeks Massimo Gomez MD [STAFF PHYSICIAN] - 1 Week Efra Deshpande MD [STAFF PHYSICIAN] - 1 Week Activity/Diet/Wound Care/Special Instructions: Patient should return to the emergency department if there is any difficulty breathing shortness of breath.
[2020-09-30] MEDS: LEVOFLOXACIN 250 MG TAB PO SCH (15:09)
[2020-09-30 17:28] LABS: Glucose,Whole Blood 130 mg/dL (75-99)
--- NOTE | 2020-09-30 19:45 | P.PN ---
Progress Note - Text Progress Note Date: 09/30/20 Hospital course 80-year-old man with medical history of kidney stones and bladder cancer, hypert ension/hyperlipidemia/diabetes type 2/CAD presented for bloody urine. Patient said that starting yesterday he noticed that he started to have blood clots in his urine. Then he started to develop severe pain with urination as if he was trying to urinate . The pain comes in cycles and feels accommodation of sharp with spasms. He took 2 extra strength Tylenol yesterday around 11 was able to sleep for proximally 4 hours before being woken up by the pain. is at bedside, notes that patient has been passing very thick, large blood clots. Patient denies fevers, chills, nausea, vomiting, chest pain, syncope, presyncope, dyspnea, cough, abdominal pain, diarrhea, constipation. Reports dysuria and hematuria. Denies melena/hematochezia. Denies numbness/weakness of extremities. Patient also has venous insufficiency and has had increasing swelling of his right lower extremity. Patient is not on any blood thinners at home. Patient has history of bladder cancer treated with resection 3 years ago. Placed on BCG intravesical therapy. A follow-up cystoscopy r showed a small recurrence-that was removed. Computed tomography scan of the abdomen/pelvis demonstrated moderate right-sided hydrouretero nephrosis, left-sided hydronephrosis which is mild. There is also concern on imaging for an obstructive at the [facility]. Ultrasound has confirmed right below-knee DVT. September 23: Bladder tumor resected. Patient was septic with hypotensive shock pseudomonas aeruginosa UTI. Started IV Levaquin. Patient did get some bleeding from IV heparin, though it was noted that the PTT was high. Swished over to eliquis. Tolerated well. Posada catheter removed. PVR 10 Today: Comfortable. Making urine. No blood. Care was discussed with the patient and family at the bedside. Also discussed the senior media planner. Patient was due to go down to rehab today. Authorization did not come through. Making good urine. Review of systems: Was done for constitutional, cardiovascular, GI, pulmonary. relevant finding as above Consultation: Dr. Oquendo from urology Dr. Gomez from pulmonary Dr. Posada from vascular Active Medications Acetaminophen (Acetaminophen Tab 325 Mg Tab) 650 mg PO Q6HR PRN PRN Reason: Mild Pain or Fever > 100.5 Last Admin: 09/24/20 23:08 Dose: 650 mg Documented by: Apixaban (Apixaban 2.5 Mg Tablet) 2.5 mg PO BID [facility] Last Admin: 09/30/20 09:14 Dose: 2.5 mg Documented by: Atorvastatin Calcium (Atorvastatin 40 Mg Tab) 40 mg PO DAILY [facility] Last Admin: 09/30/20 09:14 Dose: 40 mg Documented by: Bisacodyl (Bisacodyl 5 Mg Tablet.Dr) 5 mg PO DAILY PRN PRN Reason: Constipation Cholecalciferol (Cholecalciferol 25 Mcg (1000 Iu) Tablet) 125 mcg PO DAILY [facility] Last Admin: 09/30/20 09:14 Dose: 125 mcg Documented by: Cyanocobalamin (Cyanocobalamin 500 Mcg Tab) 1,000 mcg PO DAILY [facility] Last Admin: 09/30/20 09:14 Dose: 1,000 mcg Documented by: Docusate Sodium (Docusate 100 Mg Cap) 100 mg PO BID PRN PRN Reason: Constipation Last Admin: 09/24/20 04:20 Dose: 100 mg Documented by: Insulin Aspart (Insulin Aspart (Novolog) 100 Unit/Ml Vial) 5 unit SQ AC-SUPPER [facility] Last Admin: 09/30/20 17:29 Dose: 5 unit Documented by: Insulin Aspart (Insulin Aspart (Novolog) 100 Unit/Ml Vial) 10 unit SQ AC-BRKFST [facility] Last Admin: 09/30/20 07:08 Dose: 10 unit Documented by: Insulin Aspart (Insulin Aspart (Novolog) 100 Unit/Ml Vial) 0 unit SQ [facility]; Protocol Last Admin: 09/30/20 17:26 Dose: Not Given Documented by: Insulin Aspart (Insulin Aspart (Novolog) 100 Unit/Ml Vial) 10 unit SQ AC-LUNCH [facility] Last Admin: 09/30/20 12:22 Dose: Not Given Documented by: Insulin Detemir (Insulin Detemir (Levemir) 100 Unit/Ml Syr) 21 unit SQ HS [facility] Last Admin: 09/29/20 20:43 Dose: 21 unit Documented by: Levofloxacin (Levofloxacin 250 Mg Tab) 250 mg PO Q24H [facility] Last Admin: 09/30/20 15:09 Dose: 250 mg Documented by: Metoprolol Tartrate (Metoprolol Tartrate 25 Mg Tab) 25 mg PO BID [facility] Last Admin: 09/30/20 09:14 Dose: 25 mg Documented by: Morphine Sulfate (Morphine Sulfate 4 Mg/Ml Syringe) 4 mg IV Q4HR PRN PRN Reason: Severe Pain Last Admin: 09/27/20 18:00 Dose: 4 mg Documented by: Naloxone HCl (Naloxone 0.4 Mg/Ml 1 Ml Vial) 0.2 mg IV Q2M PRN PRN Reason: Opioid Reversal Ondansetron HCl (Ondansetron 4 Mg/2 Ml Vial) 4 mg IVP Q8HR PRN PRN Reason: Nausea And Vomiting On examination: VITAL SIGNS: 98.1, 71, 16, 1 38 x 60, 94% room air GENERAL APPEARANCE: He planning in bed comfortable HEENT: Normal external appearance of nose and ear. Oral cavity normal. Hard of hearing EYES: Pupils equal. Conjunctiva pale NECK: JVD not raised. Mass not palpable. RESPIRATORY: Respiratory effort normal. Lungs decreased breath sounds CARDIOVASCULAR: First and second sounds normal. No edema. ABDOMEN: Soft. Liver and spleen not palpable. No tenderness. No mass palpable. PSYCHIATRY: Alert and oriented x3. Mood and affect normal. INVESTIGATIONS, reviewed in the clinical context: September 30: Hemoglobin 7.7 September 29: Potassium 4.3 creatinine 1.28 Urine culture: Pseudomonas aeruginosa, Klebsiella oxytoca September 24: WBC 16.2 hemoglobin 8.9 platelets 238 lactic acid 6.8. 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 Santiago-3 years ago and was treated with BCG. September 23: Bladder tumor resected by Dr. Reyna. Follow-up with him in the office. -Acute hematuria secondary to UTI and bladder cancer resection and some contribution from anticoagulation.-Urine cleared up Follow clinically -Acute DVT in the right leg, below the knee IV heparin changed over to eliquis -Diabetes mellitus type 2, on oral hypoglycemic, uncontrolled with hyperglycemia Follow Accu-Cheks -AICD -Primary osteoarthritis -Coronary artery disease with prior [place] Continue with Coreg, baby aspirin resumed -Hyperlipidemia Continue with Lipitor -Essential hypertension On Cozaar [discontinued] and beta gabriele -Acute blood loss anemia from severe recurrent hematuria from bladder tumor Patient received 2 units of PRBC -Acute UTI with cystitis from Pseudomonas aeruginosa and Klebsiella oxytoca, causing sepsis shock IV Levaquin. Fluid bolus. Changed over to by mouth Levaquin Care discussed with the patient and family at the bedside. Authorization has not come through. Discharge to ECF held today for today.
[2020-09-30] MEDS: ACETAMINOPHEN TAB 325 MG TAB PO PRN (20:47)
[2020-09-30 21:04] LABS: Glucose,Whole Blood 126 mg/dL (75-99)
[2020-09-30] MEDS: INSULIN DETEMIR (LEVEMIR) 100 UNIT/ML SYR SQ SCH (21:04)
[2020-10-01 06:51] LABS: Glucose,Whole Blood 112 mg/dL (75-99)
[2020-10-01] MEDS: INSULIN ASPART (NovoLOG) 100 UNIT/ML VIAL SQ SCH ×4 (06:52→12:56)
[2020-10-01] MEDS: APIXABAN 2.5 MG TABLET PO SCH (08:23)
[2020-10-01] MEDS: ATORVASTATIN 40 MG TAB PO SCH (08:23)
[2020-10-01] MEDS: CYANOCOBALAMIN 500 MCG TAB PO SCH (08:23)
[2020-10-01] MEDS: METOPROLOL TARTRATE 25 MG TAB PO SCH (08:23)
[2020-10-01] MEDS: CHOLECALCIFEROL 25 MCG (1000 IU) TABLET PO SCH (08:23)
--- NOTE | 2020-10-01 10:25 | P.PN ---
Subjective Progress Note Date: 10/01/20 Principal diagnosis: left lower extremity deep venous thrombosis Sepsis source likely urinary tract/genitourinary Hypotension Lactic acidosis UTI Bilateral lower extremity swelling left more than the right Pseudomonas in the urine Type 2 diabetes mellitus Hypertension hypertensive cardiovascular disease 10/01/2020, patient seen eval examined tolerating oral direct anticoagulant well off of heparin, denies any chest pain shortness of breath, remains on room air 09/30/2020, patient seen eval examined during the rounds labs reviewed medications reviewed care plan discussed, respiratory status remains stable off and on oxygen, tolerating direct oral anticoagulant well heparin has been off, 09/29/2020, patient seen eval examined during the rounds labs reviewed medi cations reviewed care plan discussed, respiratory status stable, patient has been tolerating heparin drip fairly well, we'll start small dose Eliquis 2.5 mg twice a day and DC the heparin, continue monitor observe closely 09/28/2020, patient seen eval examined during the rounds labs reviewed medica tions reviewed and discussed with RN it appears that anticoagulation was stopped due to hematuria however urine is clear urology cleared the patient to resume the anticoagulation will start the heparin again for deep venous thrombosis patient remains on broad-spectrum antibiotics for polymicrobial urinary tract infection 09/27/2020, patient seen eval examined during the rounds labs reviewed medic ations reviewed care plan discussed, respiratory status remains stable denies any chest pain, patient remains on heparin for the last 24 hours, tolerating well, no hematuria has been noted, hemoglobin remained stable 8.2, BUN/creatinine improved to 27 and 1.4, repeat urine culture came back positive for Pseudomonas and Klebsiella both sensitive to Levaquin which patient is on 09/26/2020, patient seen eval examined during the rounds labs reviewed medications reviewed awake and alert respiratory status is much improved breathing comfortably denies any chest pain, urine is clear now, repeat duplex ultrasound of the lower extremity continue show a left popliteal vein deep venous thrombosis so far patient has been not restarted on anticoagulant, however vascular surgery has evaluated, as per urology patient is stable to start IV heparin and subsequently can be switched to oral, urine continued to do be positive for the gram-negative rods, blood cultures have been negative, patient is on IV Levaquin tolerating well This is a pleasant 80-year-old male who was seen eval reexamined on medical floor due to drop in blood pressure and a spiking fever, noted that patient has a cystoscopy and transurethral resection of tumor bladder neck medium, due to gross hematuria and urinary retention with history of bladder cancer, postop day #1, patient spiked fever and dropped his blood pressure currently getting fluid boluses as per order just receive a dose of Cipro, urine culture were positive for Pseudomonas in urine on 09/21, patient has a Posada's catheter,, patient just have a CBC done with white cell count up to 16,200, hemoglobin 8.9 lactic acid went up to 6.8, patient is awake but appear pale, his past medical history significant for renal calculi, bladder cancer, hypertension hypertensive cardiovascular disease, type 2 diabetes mellitus, dyslipidemia he has a bilateral knee replacement also noted swelling of the left lower extremity significantly bigger than the right patient feels that he had it for significant period time Objective - Vital Signs Vital signs: Vital Signs Temp 97.6 F 10/01/20 03:16 Pulse 67 10/01/20 03:16 Resp 20 10/01/20 03:16 BP 105/55 10/01/20 03:16 Pulse Ox 95 10/01/20 03:16 Intake & Output 09/30/20 10/01/20 10/01/20 18:59 06:59 18:59 Intake Total 480 358 180 Output Total 150 Balance 330 358 180 Weight 119 kg Intake: Oral 480 358 180 Output: Urine 150 Other: Voiding Method Toilet Toilet Urinal Urinal Incontinent Incontinent # Voids 3 4 1 # Bowel Movements 1 2 1 - Exam - Constitutional General appearance: cooperative, disheveled, mild distress, morbidly obese - EENT Eyes: EOMI, PERRLA Ears: bilateral: normal - Neck Neck: normal ROM Carotids: bilateral: upstroke normal Thyroid: bilateral: normal size - Respiratory Respiratory: bilateral: diminished - Cardiovascular Rhythm: regular Heart sounds: normal: S1, S2 - Gastrointestinal General gastrointestinal: decreased bowel sounds, distended, soft - Integumentary Bilateral lower extremity swelling left more than the right Integumentary: normal turgor - Neurologic Neurologic: CNII-XII intact - Musculoskeletal Musculoskeletal: gait normal, generalized weakness, strength equal bilaterally - Psychiatric Psychiatric: A&O x's 3, appropriate affect, intact judgment & insight - Labs CBC & Chem 7: 09/30/20 07:02 09/29/20 09:31 Labs: Abnormal Lab Results - Last 24 Hours (Table) 09/30/20 09/30/20 09/30/20 Range/Units 12:10 17:26 21:03 POC Glucose (mg/dL) 107 H 130 H 126 H (75-99) mg/dL 10/01/20 Range/Units 06:50 POC Glucose (mg/dL) 112 H (75-99) mg/dL Microbiology - Last 24 Hours (Table) 09/24/20 09:06 Blood Culture - Final Blood No Growth after 144 hours Assessment and Plan Assessment: left lower extremity deep venous thrombosis Sepsis source likely urinary tract/genitourinary Hypotension Lactic acidosis Klebsiella and Pseudomonas UTI, both sensitive to Levaquin now switched to oral Bilateral lower extremity swelling left more than the right morbid obesity Likely sleep disorder breathing and sleep apnea to be evaluated further o utpatient basis Type 2 diabetes mellitus Hypertension hypertensive cardiovascular disease Plan: observe off of IV heparin, continue oral direct anticoagulant direct oral anticoagulant and Eliquis 2.5 mg twice a day monitor hemoglobin closely and urine for hematuria continue IV Levaquin for now follow-up onPan culture including urine and blood, continue Levaquin Repeat labs including CBC and chemistry in a.m. Duplex ultrasound the lower extremity results reviewed Further plan of care as per clinical response of the patient Time with Patient: Greater than 30
[2020-10-01 11:36] VITALS: RESP 14
[2020-10-01 11:56] LABS: Glucose,Whole Blood 93 mg/dL (75-99)
[2020-10-01 16:19] VITALS: BP 116/68; PULSE 74; TEMP 97.9
[2020-10-01 17:03] LABS: Glucose,Whole Blood 129 mg/dL (75-99)
[2020-10-01] MEDS: LEVOFLOXACIN 250 MG TAB PO SCH (17:22)
--- NOTE | 2020-10-01 19:38 | P.PN ---
Subjective Voiding without issues Denies any dysuria, gross hematuria Objective - Vital Signs Vital signs: Vital Signs Temp 97.9 F 10/01/20 16:00 Pulse 74 10/01/20 16:00 Resp 14 10/01/20 16:00 BP 116/68 10/01/20 16:00 Pulse Ox 98 10/01/20 16:00 Intake & Output 10/01/20 10/01/20 10/02/20 06:59 18:59 06:59 Intake Total 358 420 Balance 358 420 Weight 119 kg Intake: Oral 358 420 Other: Voiding Method Toilet Toilet Urinal Urinal Incontinent Incontinent # Voids 4 1 # Bowel Movements 2 1 - Constitutional General appearance: Present: no acute distress - Gastrointestinal General gastrointestinal: Present: soft. Absent: distended - Psychiatric Psychiatric: Present: A&O x's 3 - Labs CBC & Chem 7: 09/30/20 07:02 09/29/20 09:31 Labs: Abnormal Lab Results - Last 24 Hours (Table) 09/30/20 10/01/20 10/01/20 Range/Units 21:03 06:50 16:59 POC Glucose (mg/dL) 126 H 112 H 129 H (75-99) mg/dL Assessment and Plan Assessment: 80 yo male POD #8 S/P TURBT, patient became septic postoperatively. Urine culture growing Pseudomonas. Underwent a venous duplex that showed evidence of a right popliteal DVT. Currently on anticoagulation, Posada removed yesterday. PVR Within normal limits. No evidence of gross hematuria this a.m. -Okay for discharge from urology standpoint -Can follow-up as an outpatient with Dr. Deshpande for pathology review
--- NOTE | 2020-10-03 11:26 | P.DS ---
Providers Date of admission: 09/22/20 13:21 Expected date of discharge: 10/01/20 Attending physician: Yosvany Leonard Consults: 09/21/20 16:35 Consult Physician Stat Consulting Provider: Jarrett Raman Consult Reason/Comments: Moderate R Hydronephrosis with obstructing mass Do you want consulting provider notified?: Yes 09/21/20 16:37 Consult Physician Urgent Consulting Provider: Jarrett Raman Consult Reason/Comments: Hematuria Do you want consulting provider notified?: Yes 09/24/20 08:58 Consult Physician Stat Consulting Provider: Massimo Gomez Consult Reason/Comments: Sepsis Do you want consulting provider notified?: Already Contacted Primary care physician: Rob Cruz MD Hospital Course: Hospital course 80-year-old man with medical history of kidney stones and bladder cancer, hypertension/hyperlipidemia/diabetes type 2/CAD presented for bloody urine. Patient said that starting yesterday he noticed that he started to have blood clots in his urine. Then he started to develop severe pain with urination as if he was trying to urinate . The pain comes in cycles and feels accommodation of sharp with spasms. He took 2 extra strength Tylenol yesterday around 11 was able to sleep for proximally 4 hours before being woken up by the pain. is at bedside, notes that patient has been passing very thick, large blood clots. Patient denies fevers, chills, nausea, vomiting, chest pain, syncope, presyncope, dyspnea, cough, abdominal pain, diarrhea, constipation. Reports dysuria and hematuria. Denies melena/hematochezia. Denies numbness/weakness of extremities. Patient also has venous insufficiency and has had increasing swelling of his right lower extremity. Patient is not on any blood thinners at home. Patient has history of bladder cancer treated with resection 3 years ago. Placed on BCG intravesical therapy. A follow-up cystoscopy r showed a small recurrence-that was removed. Computed tomography scan of the abdomen/pelvis demonstrated moderate right- sided hydrouretero nephrosis, left-sided hydronephrosis which is mild. There is also concern on imaging for an obstructive at the [facility]. Ultrasound has confirmed right below-knee DVT. September 23: Bladder tumor resected. Patient was septic with hypotensive shock pseudomonas aeruginosa UTI. Started IV Levaquin. Patient did get some bleeding from IV heparin, though it was noted that the PTT was high. Swished over to eliquis. Tolerated well. Posada catheter removed. PVR 10. Making good urine. Today: Patient actually ambulating rather well. Doing well. Oral intake good.. Discharge planning discussed with the patient. And the case briefer. The PT OT patient is doing well. He'll do well to go home. Discussion and discharge planning more than 35 minutes Consultation: Dr. Thurman-urology Dr. Gomez from pulmonary Dr. Posada from vascular On examination: VITAL SIGNS: 98.4, 72, 14, 132/65, 116/68 GENERAL APPEARANCE:sitting up, comfortable HEENT: Hard of hearing EYES: Pupils equal. Conjunctiva pale NECK: JVD not raised. Mass not palpable. RESPIRATORY: Respiratory effort normal. Lungs decreased breath sounds CARDIOVASCULAR: First and second sounds normal. No edema. ABDOMEN: Soft. Liver and spleen not palpable. No tenderness. No mass palpable. PSYCHIATRY: Alert and oriented x3. Mood and affect normal. INVESTIGATIONS, reviewed in the clinical context: September 30: Hemoglobin 7.7 September 29: Potassium 4.3 creatinine 1.28 Urine culture: Pseudomonas aeruginosa, Klebsiella oxytoca September 24: WBC 16.2 hemoglobin 8.9 platelets 238 lactic acid 6.8. 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 Santiago-3 years ago - treated with BCG. September 23: Bladder tumor resected by Dr. Reyna. Follow-up with him in the office. -Acute hematuria secondary to UTI and bladder cancer resection and some contribution from anticoagulation.-Urine cleared up Follow clinically -Acute DVT in the right leg, below the knee IV heparin changed over to eliquis -Diabetes mellitus type 2, on oral hypoglycemic, uncontrolled with hyperglycemia Follow Accu-Cheks -AICD -Primary osteoarthritis -Coronary artery disease with prior [place] Continue with Coreg, baby aspirin resumed -Hyperlipidemia Continue with Lipitor -Essential hypertension On Cozaar [discontinued] and beta gabriele -Acute blood loss anemia from severe recurrent hematuria from bladder tumor Patient received 2 units of PRBC -Acute UTI with cystitis from Pseudomonas aeruginosa and Klebsiella oxytoca, causing sepsis shock IV Levaquin. Fluid bolus. Changed-po Levaquin Disposition: Home Plan - Discharge Summary Discharge Rx Participant: No New Discharge Prescriptions: New Apixaban [Eliquis] 2.5 mg PO BID tablet Metoprolol Tartrate [Lopressor] 25 mg PO BID #60 tab Acetaminophen Tab [Tylenol] 650 mg PO Q6HR PRN tab PRN Reason: Mild Pain Or Fever > 100.5 Levofloxacin [Levaquin] 250 mg PO DAILY #5 tablet Continue Aspirin 81 mg PO DAILY metFORMIN HCL 1,000 mg PO BID Insulin Glargine,Hum.rec.anlog [Lantus Solostar] 21 unit SQ HS Atorvastatin [Lipitor] 40 mg PO DAILY Cholecalciferol [Vitamin D3 (25 Mcg = 1000 Iu)] 125 mcg PO DAILY Cyanocobalamin (Vitamin B-12) [Vitamin B-12] 1,000 mcg PO DAILY Changed Insulin Lispro [humaLOG Kwikpen] 7 unit SQ AC-TID #0 Discontinued Potassium Chloride [Klor-Con 10] 10 meq PO BID Carvedilol [Coreg] 12.5 mg PO BID Insulin Lispro [humaLOG Kwikpen] 10 unit SQ AC-BRKFST Furosemide 20 mg PO DAILY Losartan [Cozaar] 25 mg PO DAILY Insulin Lispro [humaLOG Kwikpen] 5 unit SQ AC-SUPPER Discharge Medication List Aspirin 81 mg PO DAILY 08/31/14 [History] Atorvastatin [Lipitor] 40 mg PO DAILY 08/31/14 [History] Insulin Glargine,Hum.rec.anlog [Lantus Solostar] 21 unit SQ HS 08/31/14 [History] metFORMIN HCL 1,000 mg PO BID 08/31/14 [History] Cholecalciferol [Vitamin D3 (25 Mcg = 1000 Iu)] 125 mcg PO DAILY 08/11/16 [History] Cyanocobalamin (Vitamin B-12) [Vitamin B-12] 1,000 mcg PO DAILY 08/11/16 [History] Acetaminophen Tab [Tylenol] 650 mg PO Q6HR PRN tab 09/30/20 [Rx] Apixaban [Eliquis] 2.5 mg PO BID tablet 09/30/20 [Rx] Insulin Lispro [humaLOG Kwikpen] 7 unit SQ AC-TID #0 09/30/20 [Rx] Levofloxacin [Levaquin] 250 mg PO DAILY #5 tablet 10/01/20 [Rx] Metoprolol Tartrate [Lopressor] 25 mg PO BID #60 tab 10/01/20 [Rx] Follow up Appointment(s)/Referral(s): Rob Cruz MD [Primary Care Provider] - 1-2 days Taya Posada DO [STAFF PHYSICIAN] - 3 Weeks Massimo Gomez MD [STAFF PHYSICIAN] - 1 Week Efra Deshpande MD [STAFF PHYSICIAN] - 1 Week Patient Instructions/Handouts: Anemia (DC) Activity/Diet/Wound Care/Special Instructions: Patient should return to the emergency department if there is any difficulty breathing shortness of breath. Discharge Disposition: HOME SELF-CARE
== END 2020-10-01 17:40 | disposition home health service (06) | DRG 668 ==
LOC: EC 12:24 → 5NMEDONC 16:30 → OBSVTOIN 09-22 13:21 → 3SCARD 09-24 14:16
PROVIDERS: ADMIT Hospitalist; ATTEND Hospitalist
PROC: 0TBC8ZZ Excision of Bladder Neck, Via Natural or Artificial Opening Endoscopic (ICD-10-PCS; principal; 2020-09-23 12:15)
PROC: 30233N1 Transfusion of Nonautologous Red Blood Cells into Peripheral Vein, Percutaneous Approach (ICD-10-PCS; 2020-09-24)
DX: C67.5 Malignant neoplasm of bladder neck (principal); A41.52 Sepsis due to Pseudomonas; R65.21 Severe sepsis with septic shock; I82.431 Acute embolism and thrombosis of right popliteal vein; N13.6 Pyonephrosis; D62 Acute posthemorrhagic anemia; E87.2 Acidosis; N02.9 Recurrent and persistent hematuria with unspecified morphologic changes; E11.65 Type 2 diabetes mellitus with hyperglycemia; E66.01 Morbid (severe) obesity due to excess calories; Z79.4 Long term (current) use of insulin; I11.9 Hypertensive heart disease without heart failure; Z20.822 Contact with and (suspected) exposure to COVID-19; E78.5 Hyperlipidemia, unspecified; G47.30 Sleep apnea, unspecified; I25.10 Atherosclerotic heart disease of native coronary artery without angina pectoris; I87.2 Venous insufficiency (chronic) (peripheral); M19.91 Primary osteoarthritis, unspecified site; R09.02 Hypoxemia; I25.2 Old myocardial infarction; B96.1 Klebsiella pneumoniae [K. pneumoniae] as the cause of diseases classified elsewhere; Z68.36 Body mass index [BMI] 36.0-36.9, adult; H91.90 Unspecified hearing loss, unspecified ear; Z79.82 Long term (current) use of aspirin; Z79.899 Other long term (current) drug therapy; Z95.810 Presence of automatic (implantable) cardiac defibrillator; Z87.442 Personal history of urinary calculi; Z85.51 Personal history of malignant neoplasm of bladder; Z92.21 Personal history of antineoplastic chemotherapy; Z86.79 Personal history of other diseases of the circulatory system; Z86.19 Personal history of other infectious and parasitic diseases; Z90.49 Acquired absence of other specified parts of digestive tract; Z87.19 Personal history of other diseases of the digestive system; Z96.653 Presence of artificial knee joint, bilateral; Z87.891 Personal history of nicotine dependence; Z98.890 Other specified postprocedural states; Z88.1 Allergy status to other antibiotic agents; Z88.0 Allergy status to penicillin; Z88.8 Allergy status to other drugs, medicaments and biological substances; Z82.49 Family history of ischemic heart disease and other diseases of the circulatory system
CPT/HCPCS: 36415; 71045; 74177; 80048; 80053; 81001; 83605; 83735; 84484; 85025; 85027; 85610; 85730; 86850; 86900; 86901; 86920; 87040; 87077; 87086; 87186; 87635; 88307; 88341; 88342; 93005; 93970; 99285

== ENCOUNTER → 2020-10-25 | Outpatient (CLI) | payer MEDICARE ==
--- NOTE | 2020-10-25 16:06 | NM ---
EXAMINATION TYPE: NM bone scan whole body DATE OF EXAM: 10/25/2020 COMPARISON: NONE HISTORY: Bladder cancer Delayed whole-body scanning was performed following the injection of 26.3 mCi Tc 99m MDP. Images acq uired 3.5 hours post injection. FINDINGS: Area of contamination overlying the perineum. Question hydronephrosis of the right kidney. Radiotrace r within the bladder noted. Nonspecific uptake involving the maxilla. Abnormal uptake involving the sternoclavicular joints, feet, and shoulders most typical of arthritic changes. Mild intensity uptake throughout the thoracic and lumbar spine most typical degenerative changes. Chanelle topenic defects involving the knees suggestive of previous surgery. IMPRESSION: 1. No diagnostic evidence of metastases.
== END | disposition home or self-care (01) ==
LOC: RADNMMAIN 10:40
PROVIDERS: ATTEND Urology
DX: C67.9 Malignant neoplasm of bladder, unspecified (principal)
CPT/HCPCS: 78306; A9503

== ENCOUNTER 2021-03-08 07:01 | Day surgery (SDC) | payer MEDICARE ==
[2021-03-04 16:03] VITALS: BMI 29.0
[~2021-03-08 07:01] MED LIST changes: +CLINDAMYCIN 600 MG in DEXTROSE 5% IN WATER 50 ML IVPB ONE; +CLINDAMYCIN 600 MG in SODIUM CHLORIDE 0.9% IRRIGATIO 250 ML IRRIGATION ONE; -LACTATED RINGERS 1,000 ML IV SCH
[2021-03-08 07:31] LABS: Glucose,Whole Blood 111 mg/dL (75-99)
[2021-03-08] MEDS ORDERED: SODIUM CHLORIDE 0.9% 1,000 ML IV ONE (07:34)
[2021-03-08 07:43] LABS: Basophils % (A) 0 %; Eosinophils # (A) 0.2 k/uL (0-0.7); Eosinophils % (A) 2 %; HCT 38.6 % (39.0-53.0); HGB 12.6 gm/dL (13.0-17.5); Lymphocytes # (A) 1.3 k/uL (1.0-4.8); Lymphocytes % (A) 16 %; MCH 30.3 pg (25.0-35.0); MCHC 32.7 g/dL (31.0-37.0); MCV 92.8 fL (80.0-100.0); Monocytes # (A) 0.4 k/uL (0-1.0); Monocytes % (A) 5 %; Neutrophils # (A) 6.2 k/uL (1.3-7.7); Neutrophils % (A) 76 %; Platelet Count 186 k/uL (150-450); RBC 4.16 m/uL (4.30-5.90); WBC 8.1 k/uL (3.8-10.6)
[2021-03-08 07:47] VITALS: RESP 16; TEMP 97.8
[2021-03-08 07:53] LABS: Calcium 9.9 mg/dL (8.4-10.2); Potassium 3.9 mmol/L (3.5-5.1)
[2021-03-08] MEDS ORDERED: fentaNYL (PF) 50 MCG/ML 2 ML AMP ONE (08:45)
[2021-03-08] MEDS ORDERED: PROPOFOL 10 MG/ML 20 ML VIAL IV ONE (08:45)
[2021-03-08 11:08] VITALS: BP 107/69; PULSE 81
== END 2021-03-08 10:37 | disposition home or self-care (01) ==
LOC: CATHEP 07:01
PROVIDERS: ATTEND Internal Medicine Cardiovascular Disease
DX: Z53.9 Procedure and treatment not carried out, unspecified reason (principal); Z20.822 Contact with and (suspected) exposure to COVID-19
CPT/HCPCS: 80048; 85025; 87635; J3010; J2704

== ENCOUNTER 2021-03-09 07:47 | Day surgery (SDC) | payer MEDICARE ==
[2021-03-08 12:50] VITALS: BMI 28.8
[~2021-03-09 07:47] MED LIST changes: -CLINDAMYCIN 600 MG in DEXTROSE 5% IN WATER 50 ML IVPB ONE; +CLINDAMYCIN 600 MG in SODIUM CHLORIDE 0.9% 250 ML IRRIGATION PRN; -CLINDAMYCIN 600 MG in SODIUM CHLORIDE 0.9% IRRIGATIO 250 ML IRRIGATION ONE; +CLINDAMYCIN 900 MG in DEXTROSE 5% IN WATER 50 ML IVPB PRN
[2021-03-09 08:58] VITALS: RESP 18; TEMP 98.6
[2021-03-09] MEDS ORDERED: MIDAZOLAM 2 MG/2 ML VIAL IV STA (10:40)
[2021-03-09] MEDS ORDERED: PROPOFOL 10 MG/ML 20 ML VIAL IV ONE (10:50)
[2021-03-09] MEDS ORDERED: fentaNYL (PF) 50 MCG/ML 2 ML AMP ONE (10:50)
[2021-03-09] MEDS ORDERED: MIDAZOLAM 2 MG/2 ML VIAL ONE (10:50)
[2021-03-09] MEDS ORDERED: SODIUM CHLORIDE 0.9% 500 ML 500 ML IV ONE (10:55)
[2021-03-09] MEDS ORDERED: LIDOCAINE 1% INJ 10MG/ML (20 ML MDV) SQ ONE (11:34)
[2021-03-09] MEDS ORDERED: ACETAMINOPHEN TAB 325 MG TAB PO PRN (12:07)
--- NOTE | 2021-03-09 12:38 | P.PCN ---
Date of Procedure: 03/09/21 Preoperative Diagnosis: Ischemic heart myopathy, AICD battery depletion Postoperative Diagnosis: The same Procedure(s) Performed: Battery replacement for AICD, no DFT Description of Procedure: HISTORY: This is a 80-year-old gentleman with history of previous cardiac arrest and AICD placement who has reached [facility]. Patient is brought in for elective replacement of battery. Dr. Goel has explained the risks and benefits of the p rocedure to the patient and family. CONSENT: Dr. Goel discussed the risks, benefits and alternative therapies for the above-mentioned procedure and for both sedation/analgesia as well as necessary blood product administration, if indicated, as they pertain to this patient. The patient has indicated understanding and acceptance of the risks and procedures discussed. PROCEDURE: Patient was brought to the lab in a fasting state. Patient was prepped and draped in the usual fashion. The existing pulse generator is located and the skin over the generator was infiltrated with lidocaine. An i ncision was made in the skin and was deepened until the capsule over the device is exposed. The cut was made in the capsule was widened and the device was pulled out of the pocket. The leads were then disconnected and the thresholds were measured which appeared to be stable. This patient is off his anticoagulation with history of atrial fibrillation, we do not do the DFT testing. Brief induction of the V. tach which spontaneously converted to sinus rhythm. Conscious Sedaticonscious sedation was provided by the department of anesthesia Duration 27minutes LEADS: VENTRICULAR: This is manufactured by [employer]. The model number is [id number] and the serial number is [id number] THE DEVICE: This is manufactured by [employer]. Model number is [id number] and the serial number is [id number] THRESHOLDS: VENTRICLE: The minimum patient threshold is 0.7 at pulse width of 0.4 with impedance of 532 R-wave: 7 The leads and pulse generator remained in the pocket after it was washed with antibiotics. Pocket was closed in the usual fashion. The fascia was closed with 2-0 Prolene ,the subcutaneous tissue was closed with 3-0 Prolene and the skin was closed with 4-0 Prolene. PROGRAMMING: Mariluz pacing MODE:VVI RATE: 40 OUTPUT: Ventricle: 2 V Tachycardia therapy: VF zone: This is programmed to a rate of 214 with initial detection of 30 out of 40 and the detection of followed of 16. The therapies are programmed 35 J 6. VT zone is programmed to a rate of 176. The therapies are programmed to cardioversion with 10 J followed by 20 and followed by 35 J. Initial to burst pacing episodes are programmed. The monitor zone is programmed to a rate of 150 bpm FINAL IMPRESSION: #1. Successful generator change. #2. No DFT because of atrial fibrillation and being off anticoagulation #3. DFT can be done when patient is fully anticoagulated COMPLICATIONS: None [ PLAN: Patient was monitored for several hours. If stable patient be discharged home. He'll continue home medication except holding Eliquis for 24 hours
[2021-03-09 16:03] VITALS: BP 108/54; PULSE 72
== END 2021-03-09 16:11 | disposition home or self-care (01) ==
LOC: CATHEP 07:47
PROVIDERS: ATTEND Internal Medicine Cardiovascular Disease
DX: Z45.02 Encounter for adjustment and management of automatic implantable cardiac defibrillator (principal); I25.5 Ischemic cardiomyopathy; I47.2 Ventricular tachycardia; E11.9 Type 2 diabetes mellitus without complications; I10 Essential (primary) hypertension; E78.5 Hyperlipidemia, unspecified; Z79.01 Long term (current) use of anticoagulants; Z79.84 Long term (current) use of oral hypoglycemic drugs; Z79.82 Long term (current) use of aspirin; Z79.4 Long term (current) use of insulin; Z79.899 Other long term (current) drug therapy; Z88.1 Allergy status to other antibiotic agents; Z88.0 Allergy status to penicillin; Z88.8 Allergy status to other drugs, medicaments and biological substances; I48.91 Unspecified atrial fibrillation
CPT/HCPCS: 33262; C1722; J2250; J2001; J3010; J2704

== ENCOUNTER 2021-08-17 20:22 | Emergency (ER) | payer MEDICARE ==
[2021-08-17 20:33] VITALS: RESP 18; TEMP 98
[2021-08-17] MEDS ORDERED: SODIUM CHLORIDE 0.9% 500 ML 500 ML IV STA (20:35)
--- NOTE | 2021-08-17 20:54 | ED ---
Syncope HPI - General Chief Complaint: Syncope Stated Complaint: Fall Time Seen by Provider: 08/17/21 20:33 Source: EMS, RN notes reviewed Mode of arrival: EMS Limitations: no limitations - History of Present Illness Initial Comments: This is a pleasant 81-year-old male with multiple medical issues as listed in the past medical history. Patient had a syncopal episode when he was in the bathroom. Patient does not recall any preceding symptomology. No chest pain. No lightheadedness. No dizziness. Patient struck his forehead--unknown loss of consciousness, patient states he was out but does not know the time.. Patient complaining of some mild neck stiffness and a minimal headache. Patient has history of DVT and is on anticoagulation therapy. Of note, patient tested positive for COVID-19 this morning. Patient hasn't caregiver that comes the house tested positive for Covid. Patient states he was denying any symptoms reported other than he states he feels somewhat generally weak. No headache, no fever or chills, no changes in vision or hearing, no sore throat or difficulty with speech, no neck pain, no chest pain or shortness of breath, no abdominal pain, no nausea or vomiting, no changes in urination or bowel movements, no numbness or tingling, no extremity pain, no skin rashes or lesions. Patient has long-term blindness of the left eye. - Related Data Home Medications Medication Instructions Recorded Confirmed Atorvastatin [Lipitor] 40 mg PO DAILY 08/31/14 08/17/21 Insulin Glargine,Hum.rec.anlog 11 unit SQ HS 08/31/14 08/17/21 [Lantus Solostar Pen] metFORMIN HCL [Glucophage] 1,000 mg PO BID 08/31/14 08/17/21 Cyanocobalamin (Vitamin B-12) 1,000 mcg PO DAILY 08/11/16 08/17/21 [Vitamin B-12] Furosemide [Lasix] 20 mg PO DAILY 03/04/21 08/17/21 Insulin Lispro [humaLOG Kwikpen] 4 unit SQ AC-TID 03/04/21 08/17/21 Losartan [Cozaar] 25 mg PO DAILY 03/04/21 08/17/21 Acetaminophen Tab [Tylenol Tab] 500 mg PO Q6H PRN 08/17/21 08/17/21 Apixaban [Eliquis] 2.5 mg PO BID 08/17/21 08/17/21 Aspirin EC [Ecotrin Low Dose] 81 mg PO DAILY 08/17/21 08/17/21 Cholecalciferol [Vitamin D3 (125 125 mcg PO DAILY 08/17/21 08/17/21 Mcg = 5000 Iu)] Clotrimazole/Betameth Cream 1 applic TOPICAL BID PRN 08/17/21 08/17/21 [Lotrisone] Dexamethasone [Decadron] 8 mg PO DIRECTED PRN 08/17/21 08/17/21 EPINEPHrine (Auto Inject) [Epipen] 0.3 mg IM ONCE PRN 08/17/21 08/17/21 Ferrous Sulfate [Feosol] 325 mg PO DAILY 08/17/21 08/17/21 Hydrocortisone Cream 1 applic TOPICAL BID PRN 08/17/21 08/17/21 [Hydrocortisone 1% Cream] Lidocaine-Prilocaine Cream [Emla 1 applic TOPICAL DAILY PRN 08/17/21 08/17/21 Cream 2.5%/2.5%] Loperamide HCl [Imodium A-D] 2 mg PO QID PRN 08/17/21 08/17/21 Metoprolol Succinate [Toprol XL] 25 mg PO DAILY 08/17/21 08/17/21 OLANZapine 5 mg PO HS PRN 08/17/21 08/17/21 Allergies Allergy/AdvReac Type Severity Reaction Status Date / Time atenolol [From Tenormin] Allergy Swelling. Verified 03/09/21 08:47 REDNESS OF SKIN benazepril HCl Allergy Swelling. Verified 03/09/21 08:47 [From Lotensin] REDNESS OF SKIN Penicillins Allergy Swelling. Verified 03/09/21 08:47 REDNESS SKIN tetracycline Allergy Swelling.REDNESS Verified 03/09/21 08:47 OF SKIN Review of Systems ROS Statement: Those systems with pertinent positive or pertinent negative responses have been documented in the HPI. ROS Other: All systems not noted in ROS Statement are negative. Past Medical History Past Medical History: Atrial Fibrillation, Cancer, Diabetes Mellitus, Deep Vein Thrombosis (DVT), Eye Disorder, Hearing Disorder / Deafness, Hyperlipidemia, Myocardial Infarction ([place]) Additional Past Medical History / Comment(s): RT Eye Aneurysm, stroke Lt eye. Hx Bladder cancer - Chemo [place] 2015. DVT 08/2020. Hearing aids. Enlarged kidney, blockage noted; plans bladder resection 03/11/21. Hx edema BLE, wears compression boots. Blind left eye Last Myocardial Infarction Date:: 2005 History of Any Multi-Drug Resistant Organisms: None Reported Past Surgical History: AICD, Appendectomy, Heart Catheterization, Joint Replacement, Orthopedic Surgery Additional Past Surgical History / Comment(s): LEON KNEE ARTHROSCOPIES, LEON KNEE REPLACEMENTS, BLADDER TUMOR REMOVED, DEFIB TESTING, EP STUDY Past Anesthesia/Blood Transfusion Reactions: No Reported Reaction Additional Past Anesthesia/Blood Transfusion Reaction / Comment(s): no hx blood transfusion Type of Cardiac Device: AICD Device Placement Date:: 2011 [id number] Past Psychological History: Depression Smoking Status: Former smoker - Past Family History Mother Family Medical History: No Reported History General Exam - General Exam Comments Initial Comments: Elderly male in no significant distress. Cranial nerves II through XII are intact. No focal neurologic deficits. Noted the patient is clinically blind in his left eye. Patient has a chronic pupillary defect. Limitations: no limitations General appearance: alert, in no apparent distress Head exam: Present: other (Visualization and frontal scalp abrasion.) Eye exam: Present: normal appearance, PERRL, EOMI. Absent: scleral icterus, conjunctival injection, periorbital swelling Pupils: Present: normal accommodation ENT exam: Present: normal exam, normal oropharynx, mucous membranes moist, TM's normal bilaterally, normal external ear exam Neck exam: Present: normal inspection, full ROM. Absent: tenderness, meningismus, lymphadenopathy Respiratory exam: Present: normal lung sounds bilaterally. Absent: respiratory distress, wheezes, rales, rhonchi, stridor Cardiovascular Exam: Present: regular rate, normal rhythm, normal heart sounds. Absent: systolic murmur, diastolic murmur, rubs, gallop, clicks GI/Abdominal exam: Present: soft, normal bowel sounds. Absent: distended, tenderness, guarding, rebound, rigid Extremities exam: Present: normal inspection, full ROM, normal capillary refill. Absent: tenderness, pedal edema, joint swelling, calf tenderness Back exam: Present: normal inspection Neurological exam: Present: alert, oriented X3, CN II-XII intact Psychiatric exam: Present: normal affect, normal mood Skin exam: Present: warm, dry, intact, normal color. Absent: rash, cyanosis, diaphoretic Course Vital Signs 08/17/21 08/17/21 08/17/21 20:25 21:31 23:09 Temperature 98 F Pulse Rate 66 95 98 Respiratory 18 18 18 Rate Blood Pressure 106/61 90/60 108/57 O2 Sat by Pulse 98 98 98 Oximetry - Reevaluation(s) Reevaluation #1: 08/17/21 22:04 Medical record is reviewed Repeat neurological exam reveals full strength in the arms and legs. Sensation intact. Reevaluation #2: 08/17/21 22:59 Case was discussed in detail with Dr. Irizarry at [facility]. Patient will be transferred to that facility for definitive neurologic care. All findin gs, treatment plan, and disposition discussed with the patient and his daughter. Heavy Higgins was requested by the patient's daughter. Case finally discussed with Dr. Irizarry at 2250. There was a significant delay in getting hold of the transverse facility with multiple phone calls. - Consultations Consultation #1: Case discussed in detail with Dr. Irizarry at [facility]. Patient will be transferred to that facility for further evaluation EKG Findings - EKG Comments: EKG Findings:: EKG reveals sinus tachycardia with a first-degree AV block, frequent P PACs. No evidence of acute ST or T-wave changes. Ventricular rate 106. Normal axis, baseline artifact noted Procedures - Laceration Laceration #1 Consent Obtained: verbal consent Indication: laceration Site: face (Forehead) Size (cm): 4 Description: linear Depth: simple, single layer Anesthetic Used: lidocaine 1% Anesthesia Technique: local infiltration Amount (mls): 250 Type of Sutures: other (Payal) Patient Tolerated Procedure: well, no complications Medical Decision Making - Medical Decision Making Call to update the patient's daughter states that she wants the patient sent to [facility]. Neurological examination at 10:28 PM is unchanged. Patient in minimal if any distress. Alert and oriented 4. The case was discussed in detail with ED attending physician. Presentation, findings, treatment plan discussed in detail--Dr. Nuñez Patient's d-dimer is elevated. Patient is on Eliquis already. Patient also positive for COVID-19 this morning. Suspect the patient's Triplett is elevated due to the inflammation from the injury, COVID-19 infection. Patient already anticoagulated. - Lab Data Result diagrams: 08/17/21 20:56 08/17/21 20:56 Lab Results 08/17/21 08/17/21 08/17/21 Range/Units 20:56 20:56 20:56 WBC 13.4 H (3.8-10.6) k/uL RBC 3.68 L (4.30-5.90) m/uL Hgb 11.2 L (13.0-17.5) gm/dL Hct 35.1 L (39.0-53.0) % MCV 95.5 (80.0-100.0) fL MCH 30.6 (25.0-35.0) pg MCHC 32.0 (31.0-37.0) g/dL RDW 16.2 H (11.5-15.5) % Plt Count 170 (150-450) k/uL MPV 8.2 Neutrophils % 90 % Lymphocytes % 4 % Monocytes % 4 % Eosinophils % 1 % Basophils % 0 % Neutrophils # 12.1 H (1.3-7.7) k/uL Lymphocytes # 0.6 L (1.0-4.8) k/uL Monocytes # 0.5 (0-1.0) k/uL Eosinophils # 0.1 (0-0.7) k/uL Basophils # 0.0 (0-0.2) k/uL Hypochromasia Moderate Anisocytosis Slight PT 10.4 (9.0-12.0) sec INR 0.9 (<1.2) APTT 23.9 (22.0-30.0) sec D-Dimer 6.51 H (<0.60) mg/L FEU Sodium 133 L (137-145) mmol/L Potassium 3.9 (3.5-5.1) mmol/L Chloride 97 L (98-107) mmol/L Carbon Dioxide 21 L (22-30) mmol/L Anion Gap 15 mmol/L BUN 66 H (9-20) mg/dL Creatinine 1.79 H (0.66-1.25) mg/dL Est GFR (CKD-EPI)AfAm 41 (>60 ml/min/1.73 sqM) Est GFR (CKD-EPI)NonAf 35 (>60 ml/min/1.73 sqM) Glucose 211 H (74-99) mg/dL Calcium 8.9 (8.4-10.2) mg/dL Magnesium 1.6 (1.6-2.3) mg/dL Total Bilirubin 0.7 (0.2-1.3) mg/dL AST 71 H (17-59) U/L ALT 52 H (4-49) U/L Alkaline Phosphatase 162 H (38-126) U/L Troponin I (0.000-0.034) ng/mL Total Protein 7.4 (6.3-8.2) g/dL Albumin 3.7 (3.5-5.0) g/dL Coronavirus (PCR) (Not Detectd) 08/17/21 08/17/21 Range/Units 20:56 22:36 WBC (3.8-10.6) k/uL RBC (4.30-5.90) m/uL Hgb (13.0-17.5) gm/dL Hct (39.0-53.0) % MCV (80.0-100.0) fL MCH (25.0-35.0) pg MCHC (31.0-37.0) g/dL RDW (11.5-15.5) % Plt Count (150-450) k/uL MPV Neutrophils % % Lymphocytes % % Monocytes % % Eosinophils % % Basophils % % Neutrophils # (1.3-7.7) k/uL Lymphocytes # (1.0-4.8) k/uL Monocytes # (0-1.0) k/uL Eosinophils # (0-0.7) k/uL Basophils # (0-0.2) k/uL Hypochromasia Anisocytosis PT (9.0-12.0) sec INR (<1.2) APTT (22.0-30.0) sec D-Dimer (<0.60) mg/L FEU Sodium (137-145) mmol/L Potassium (3.5-5.1) mmol/L Chloride (98-107) mmol/L Carbon Dioxide (22-30) mmol/L Anion Gap mmol/L BUN (9-20) mg/dL Creatinine (0.66-1.25) mg/dL Est GFR (CKD-EPI)AfAm (>60 ml/min/1.73 sqM) Est GFR (CKD-EPI)NonAf (>60 ml/min/1.73 sqM) Glucose (74-99) mg/dL Calcium (8.4-10.2) mg/dL Magnesium (1.6-2.3) mg/dL Total Bilirubin (0.2-1.3) mg/dL AST (17-59) U/L ALT (4-49) U/L Alkaline Phosphatase (38-126) U/L Troponin I <0.012 (0.000-0.034) ng/mL Total Protein (6.3-8.2) g/dL Albumin (3.5-5.0) g/dL Coronavirus (PCR) Detected A (Not Detectd) Critical Care Time Critical Care Time: Yes (Multiple re-evaluations. Evaluation patient's response to treatment. Eval) Total Critical Care Time: 30 Disposition Clinical Impression: Posterior displaced Type II dens fracture, C7 cervical fracture, Closed head injury, Forehead laceration, Syncope and collapse, T1 vertebral fracture Disposition: TRANSFER TO PSYCH HOSP/UNIT Condition: Stable Is patient prescribed a controlled substance at d/c from ED?: No Referrals: Rob Cruz MD [Primary Care Provider] - 1-2 days
[2021-08-17 21:11] LABS: Anisocytosis Slight; Basophils % (A) 0 %; Eosinophils # (A) 0.1 k/uL (0-0.7); Eosinophils % (A) 1 %; HCT 35.1 % (39.0-53.0); HGB 11.2 gm/dL (13.0-17.5); Hypochromasia Moderate; Lymphocytes # (A) 0.6 k/uL (1.0-4.8); Lymphocytes % (A) 4 %; MCH 30.6 pg (25.0-35.0); MCV 95.5 fL (80.0-100.0); Mean Platelet Volume 8.2; Monocytes # (A) 0.5 k/uL (0-1.0); Monocytes % (A) 4 %; Neutrophils # (A) 12.1 k/uL (1.3-7.7); Neutrophils % (A) 90 %; Platelet Count 170 k/uL (150-450); RBC 3.68 m/uL (4.30-5.90); RDW 16.2 % (11.5-15.5); WBC 13.4 k/uL (3.8-10.6)
[2021-08-17 21:19] LABS: Albumin 3.7 g/dL (3.5-5.0); Calcium 8.9 mg/dL (8.4-10.2); Magnesium 1.6 mg/dL (1.6-2.3); Potassium 3.9 mmol/L (3.5-5.1); Total Bilirubin 0.7 mg/dL (0.2-1.3); Total Protein 7.4 g/dL (6.3-8.2)
[2021-08-17] MEDS ORDERED: TOPICAL SKIN ADHESIVE 1 EACH AMP TOPICAL ONE (21:20)
[2021-08-17] MEDS ORDERED: LIDOCAINE/EPINEPHR/TETRACAINE 5 ML BOTTLE TOPICAL ONE (21:20)
[2021-08-17 21:36] LABS: INR 0.9 (<1.2); Partial Thromboplastin Time 23.9 sec (22.0-30.0); Prothrombin Time 10.4 sec (9.0-12.0)
[2021-08-17] MEDS ORDERED: SODIUM CHLORIDE 0.9% 1,000 ML IV SCH (22:00)
--- NOTE | 2021-08-17 22:09 | CT ---
EXAMINATION TYPE: CT brain [facility] DATE OF EXAM: 08/17/2021 COMPARISON: None HISTORY: FALL TECHNIQUE: CT scan of the head and cervical spine without contrast CT DLP: 1465.1 mGycm Automated exposure control for dose reduction was used. FINDINGS: There is soft tissue swelling along the left frontal bone without underlying frontal bone fracture. T here is a small hematoma and subcutaneous air. This suggests laceration. There is no intracranial hemorrhage, midline shift or mass effect. Major-white matter differentiation is preserved. There is brain volume loss and prominence of the CSF spaces and ventricles. Tiny lucencies in the bilateral basal ganglia and internal capsules suggest lacunar infarcts. Atherosclerotic calcifications are seen in the intracranial carotid arteries. No acute orbital, calvarial osseous abnormalities seen. 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 Mild mucosal thickening in the ethmoid air cells and bilateral maxillary sinuses. No fluid seen in th e mastoid air cells. There is advanced bony demineralization. There is an acute posteriorly displaced fracture of the dens, the superior fractured fragment is disl ocated posteriorly about 8 mm. The atlantooccipital joint articulates normally. The bony spinal canal at the same level is mildly narrowed. Tiny osseous fragments posterior to the basion may reflect tin y blood products versus displaced osseous fragments. There is a complete vertical fracture of anterior third of C7 with no displacement. There is a partia l vertical fracture of left side of T1 without displacement. There are also advanced degenerative changes at the craniocervical junction and within the cervical s pine including disc osteophyte complex at C4-5. Severe narrowing at C3-4 and C4-5 and C5-6. Ossificat ion of the disc at C6-7. There is also multilevel narrowing There are upper lobe reticular nodular opacities. A nodule in the right upper lobe measures 0.9 cm. N odule in the left upper lobe measures 8 mm. Airways appear symmetric. Evaluation of the cervical region is limited by streak artifact from dental implants. Atherosclerotic calcifications are seen in the arch of the aorta. There is a right internal jugular joseph catheter with its tip below the boundaries of the image. Ther e is a cardiac device which is partially visualized. IMPRESSION: 1. NO ACUTE INTRACRANIAL HEMORRHAGE, MIDLINE SHIFT OR MASS EFFECT. 2. TYPE II FRACTURE OF ODONTOID PROCESS, POSTERIOR DISPLACEMENT, MILD NARROWING AT THE FORAMEN . TINY OSSEOUS FRAGMENTS POSTERIOR TO THE BASION MAY REFLECT TINY BLOOD PRODUCTS VERSUS DISPLACED OSSEOUS F RAGMENTS. 3. VERTICAL THROUGH AND THROUGH FRACTURE OF C7 WITHOUT DISPLACEMENT. 4. VERTICAL PARTIAL FRACTURE OF LEFT SIDE OF T1 WITHOUT DISPLACEMENT. 5. BILATERAL LUNG NODULES MEASURING 1 CM ON THE RIGHT AND 0.9 CM ON THE LEFT. 6. SOFT TISSUE CONTUSION/LACERATION OVER THE LEFT FRONTAL LOBE. 7. RIGHT IJ CENTRAL VENOUS CATHETER. Consider stat MRI. I called Dr. Luis Manuel DALE with above report @ 10:00pm
--- NOTE | 2021-08-17 22:47 | XR ---
EXAMINATION TYPE: XR chest 1V portable DATE OF EXAM: 08/17/2021 COMPARISON: 09/24/2020 HISTORY: Short of breath TECHNIQUE: Single view FINDINGS: Heart is normal. Lungs are clear of consolidation. There is coarse interstitial density in the lungs. There is right central venous catheter with tip in the superior vena cava. There is left a xillary pacemaker. IMPRESSION: Pulmonary interstitial fibrosis. Normal heart. No acute lung disease. No significant quiñonez ge compared to old exam.
[2021-08-17 23:10] VITALS: BP 108/57; PULSE 98
== END 2021-08-17 23:49 ==
LOC: EC 20:22
DX: S12.600A Unspecified displaced fracture of seventh cervical vertebra, initial encounter for closed fracture (principal); S22.019A Unspecified fracture of first thoracic vertebra, initial encounter for closed fracture; S01.81XA Laceration without foreign body of other part of head, initial encounter; R55 Syncope and collapse; U07.1 COVID-19; E11.9 Type 2 diabetes mellitus without complications; I48.91 Unspecified atrial fibrillation; I25.2 Old myocardial infarction; E78.5 Hyperlipidemia, unspecified; F32.A Depression, unspecified; Z87.891 Personal history of nicotine dependence; Z86.718 Personal history of other venous thrombosis and embolism; Z79.4 Long term (current) use of insulin; Z79.84 Long term (current) use of oral hypoglycemic drugs; Z79.01 Long term (current) use of anticoagulants; Z79.82 Long term (current) use of aspirin; Z79.899 Other long term (current) drug therapy; W18.39XA Other fall on same level, initial encounter
CPT/HCPCS: 12013; 36415; 70450; 71045; 72125; 80053; 83735; 84484; 85025; 85379; 85610; 85730; 87635; 93005; 99291